=== PATIENT | female | born 1935 | race Caucasian/White ===

== ENCOUNTER 2018-05-24 20:31 | Emergency (ER) | payer MEDICARE ==
[~2018-05-24] VITALS: Ht 157.5 cm; Wt 51.7 kg
[~2018-05-24 20:31] MED LIST: ASPI-612 PO; BUSP7.5T PO; FOLI1TAB16 PO; LISI1TAB7 PO; PHEN100C PO; [UNRECOGNIZED DRUG - CODE] PO; macrobid 100mg PO
[2018-05-24 20:50] VITALS: BP 148/79
--- NOTE | 2018-05-24 21:22 | RAD ---
EXAM: Left foot and ankle, 3 views. HISTORY: Pain. COMPARISON: None. FINDINGS: 3 views of the left foot and ankle are obtained. There is cortical irregularity along the distal fourth metatarsal, suggesting a minimally displaced fracture or osseous ridge. There is chronic deformity of the fifth distal metatarsal and if distal proximal phalanx with associated chronic proximal interphalangeal joint dislocation or subluxation. There is no osteochondral lesion. There is ankle soft tissue swelling. There is slight enthesopathy at the Achilles tendon insertion. IMPRESSION: 1. Slight deformity of the distal fourth metatarsal, suggesting a minimally displaced fracture or an osseous ridge. Correlate for point tenderness in this location. 2. Deformity of the distal fifth metatarsal and distal fifth proximal phalanx, a finding which can be seen with psoriatic arthritis. Correlate with clinical history. Electronically signed by: Tiffany Philip MD (05/24/2018 9:18 PM) [facility]
[2018-05-24] MEDS ORDERED: HYDR-2758 PO (21:26)
--- NOTE | 2018-05-24 21:46 | PHYS DOC ---
Adult General Chief Complaint Chief Complaint foot pain HPI HPI Foot pain, after fall for 2 days noticed swelling of the left foot and ankle. No restriction of movement Review of Systems Review of Systems Constitutional: Denies fever or chills [] Eyes: Denies change in visual acuity, redness, or eye pain [] HENT: Denies nasal congestion or sore throat [] Respiratory: Denies cough or shortness of breath [] Cardiovascular: No additional information not addressed in HPI [] GI: Denies abdominal pain, nausea, vomiting, bloody stools or diarrhea [] : Denies dysuria or hematuria [] Musculoskeletal: Denies back pain or joint pain [] Integument: Denies rash or skin lesions [] Neurologic: Denies headache, focal weakness or sensory changes [] Endocrine: Denies polyuria or polydipsia [] All other systems were reviewed and found to be within normal limits, except as documented in this note. Allergies Allergies Allergies Coded Allergies Type Severity Reaction Last Updated Verified No Known Drug Allergies 06/14/14 No Physical Exam Physical Exam Constitutional: Well developed, well nourished, no acute distress, non-toxic appearance. [] HENT: Normocephalic, atraumatic, bilateral external ears normal, oropharynx moist, no oral exudates, nose normal. [] Eyes: PERRLA, EOMI, conjunctiva normal, no discharge. [] Neck: Normal range of motion, no tenderness, supple, no stridor. [] Cardiovascular:Heart rate regular rhythm, no murmur [] Lungs & Thorax: Bilateral breath sounds clear to auscultation [] Abdomen: Bowel sounds normal, soft, no tenderness, no masses, no pulsatile masses. [] Skin: Warm, dry, no erythema, no rash. [] Back: No tenderness, no CVA tenderness. [] Extremities: Tender left foot swollen Neurologic: Alert and oriented X 3, normal motor function, normal sensory function, no focal deficits noted. [] Psychologic: Affect normal, judgement normal, mood normal. [] Current Patient Data Vital Signs Vital Signs Date Time Temp Pulse Resp B/P (MAP) Pulse Ox O2 Delivery O2 Flow Rate FiO2 05/24/18 20:50 98.1 98 18 98 Room Air EKG EKG [] Radiology/Procedures Radiology/Procedures [] Course & Med Decision Making Course & Med Decision Making Pertinent Labs and Imaging studies reviewed. (See chart for details) [] Final Impression Final Impression [] Problems: (1) Foot fracture, left Qualifiers: Qualified Codes: S92.902A - Unspecified fracture of left foot, initial encounter for closed fracture Dragon Disclaimer Dragon Disclaimer This electronic medical record was generated, in whole or in part, using a voice recognition dictation system. MERCEDES HUANG MD May 24, 2018 21:46
== END 2018-05-24 22:25 | disposition home or self-care (01) ==
LOC: ER 20:31
DX: S92.902A Unspecified fracture of left foot, initial encounter for closed fracture (principal); W01.0XXA Fall on same level from slipping, tripping and stumbling without subsequent striking against object, initial encounter; Y93.89 Activity, other specified; Y92.89 Other specified places as the place of occurrence of the external cause; Y99.8 Other external cause status
CPT/HCPCS: 29515; 73610; 73630; 99284

== ENCOUNTER 2018-06-04 16:59 | Emergency (ER) | payer MEDICARE ==
[~2018-06-04] VITALS: Ht 160 cm; Wt 52.2 kg
[~2018-06-04 16:59] MED LIST changes: +HYDR-2758 PO
--- NOTE | 2018-06-04 17:23 | PHYS DOC ---
Past History Past Medical History: Hypertension, Seizure Past Surgical History: Other Alcohol Use: None Drug Use: None Adult General Chief Complaint Chief Complaint: FOOT INJURY PAIN [facility] HPI Patient is an 83-year-old female who presents from her primary care doctor's office with concern that foot is swollen. Patient reportedly has been bearing weight on her left foot that is fractured. Upon arrival, patient denies any pain in her foot. Patient denies any pain at this time and requesting to be discharged home. Review of Systems Review of Systems Constitutional: Denies fever or chills [] Respiratory: Denies cough or shortness of breath [] Cardiovascular: No additional information not addressed in HPI [] Musculoskeletal: Positive foot swelling. Denies foot pain[] Integument: Denies rash or skin lesions [] Allergies Allergies Allergies Coded Allergies Type Severity Reaction Last Updated Verified No Known Drug Allergies 06/04/18 No Physical Exam Physical Exam Constitutional: Well developed, well nourished, no acute distress, non-toxic appearance. [] HENT: Normocephalic, atraumatic. [] Cardiovascular:Heart rate regular rhythm [] Lungs & Thorax: Bilateral breath sounds clear to auscultation [] Skin: Warm, dry, no erythema, no rash. [] Extremities: Right foot demonstrates moderate soft tissue swelling primarily at the dorsum of the foot. Patient denies any tenderness to palpation. [] Neurologic: Awake and alert, no focal deficits noted. [] Current Patient Data Vital Signs Vital Signs Date Time Temp Pulse Resp B/P (MAP) Pulse Ox O2 Delivery O2 Flow Rate FiO2 06/04/18 17:05 97.4 82 18 97 Room Air EKG EKG [] Radiology/Procedures Radiology/Procedures [] Impressions: Stable nondisplaced fourth metatarsal head fracture. Course & Med Decision Making Course & Med Decision Making Pertinent Labs and Imaging studies reviewed. (See chart for details) [] Dragon Disclaimer Dragon Disclaimer This electronic medical record was generated, in whole or in part, using a voice recognition dictation system. Departure Departure: Impression: Primary Impression: Foot fracture, left Disposition: 01 HOME, SELF-CARE Condition: STABLE Referrals: EVETTE BARRIOS MD (PCP) JAMEE ASCENCIO MD Patient Instructions: Foot Fracture Additional Instructions: Call tomorrow morning to schedule appointment with Dr. Ascencio. Problem Qualifiers Primary Impression: Foot fracture, left Encounter type: subsequent encounter Fracture type: closed Fracture healing : with routine healing Qualified Codes: S92.902D - Unspecified fracture of left foot, subsequent encounter for fracture with routine healing CARMEN MIN Jr. DO Jun 04, 2018 17:23
--- NOTE | 2018-06-04 17:23 | RAD ---
Indication: Fall possible fracture TECHNIQUE: 3 views of the left foot COMPARISON: 05/24/2018 FINDINGS: Diffuse osteopenia. Stable nondisplaced fracture is seen at the head of the fourth metatarsal. Chronic deformity seen in the fifth MTP and PIP joint. Soft tissue swelling seen in the dorsum of the foot. IMPRESSION: Fracture of the head of the fourth metatarsal. Electronically signed by: Nii Craig DO (06/04/2018 5:19 PM) [id number]
[2018-06-04 17:44] VITALS: BP 161/75
== END 2018-06-04 17:50 | disposition home or self-care (01) ==
LOC: ER 16:59
DX: S92.345A Nondisplaced fracture of fourth metatarsal bone, left foot, initial encounter for closed fracture (principal); I10 Essential (primary) hypertension; X58.XXXA Exposure to other specified factors, initial encounter; Y93.89 Activity, other specified; Y92.89 Other specified places as the place of occurrence of the external cause; Y99.8 Other external cause status
CPT/HCPCS: 73630; 99284

== ENCOUNTER 2019-02-10 07:13 | Emergency (ER) | payer MEDICARE ==
[~2019-02-10 07:13] MED LIST changes: +HYDR-2155 PO; -HYDR-2758 PO
--- NOTE | 2019-02-10 07:26 | PHYS DOC ---
Past History Past Medical History: Hypertension, Seizure Past Surgical History: Other Smoking: Quit Greater Than 1 Year Alcohol Use: None Drug Use: None Adult General Chief Complaint Chief Complaint: KNEE INJURY HPI HPI Patient is a 83-year-old female presents complaining of right knee pain after a mechanical trip and fall last evening at approximately 1930. No head injury. No loss of consciousness. Patient reports being unable to ambulate secondary to pain since that time. No numbness or tingling. No hip pain. No weakness or paresthesias. No previous history of knee injury. Movement makes it worse. She has taken nothing to help with the pain.[] Review of Systems Review of Systems Constitutional: Denies fever or chills [] Eyes: Denies change in visual acuity, redness, or eye pain [] HENT: Denies nasal congestion or sore throat [] Respiratory: Denies cough or shortness of breath [] Cardiovascular: No chest pain or palpitations[] GI: Denies abdominal pain, nausea, vomiting, bloody stools or diarrhea [] : Denies dysuria or hematuria [] Musculoskeletal: Denies back pain, see history of present illness[] Integument: Denies rash or skin lesions [] Neurologic: Denies headache, focal weakness or sensory changes [] Endocrine: Denies polyuria or polydipsia [] All other systems were reviewed and found to be within normal limits, except as documented in this note. Current Medications Current Medications Current Medications Medications (Trade) Dose Ordered Sig/Deepthi Start Time Stop Time Status Last Admin Dose Admin Acetaminophen (Tylenol) 500 mg 1X ONCE 02/10/19 07:30 02/10/19 07:31 UNV Allergies Allergies Allergies Coded Allergies Type Severity Reaction Last Updated Verified No Known Drug Allergies 06/04/18 No Physical Exam Physical Exam Constitutional: Well developed, well nourished, no acute distress, non-toxic appearance. [] HENT: Normocephalic, atraumatic, bilateral external ears normal, oropharynx moist, no oral exudates, nose normal. [] Eyes: PERRLA, EOMI, conjunctiva normal, no discharge. [] Neck: Normal range of motion, no tenderness, supple, no stridor. [] Cardiovascular:Heart rate regular rhythm, no murmur [] Lungs & Thorax: Bilateral breath sounds clear to auscultation [] Abdomen: Bowel sounds normal, soft, no tenderness, no masses, no pulsatile masses. Pelvis is stable and 3 planes[] Skin: Warm, dry, no erythema, no rash. [] Back: No tenderness, no CVA tenderness. [] Extremities: Right knee has tenderness along the medial aspect. Limited active range of motion secondary to pain. No varus or valgus laxity. No significant edema. No erythema or bruising. Patient is distally neurovascularly intact. A joint above shows some mild hip discomfort with movement of the knee. No r otational deformity. Right ankle was evaluated and was normal. The other 3 extremities show: No tenderness, no cyanosis, no clubbing, ROM intact, no edema. [] Neurologic: Alert and oriented X 3, normal motor function, normal sensory f unction, no focal deficits noted. [] Psychologic: Affect normal, judgement normal, mood normal. [] EKG EKG EKG shows an irregular rhythm rate of 97, normal axis, QTC of 456 ms, no ST elevations. Interpreted by me at 0747[] Radiology/Procedures Radiology/Procedures PROCEDURE: KNEE RIGHT 3V EXAM: AP, oblique and cross table lateral views of the right knee DATE: 02/10/2019 7:16 AM INDICATION: Right knee pain post fall COMPARISON: No Prior FINDINGS: 3 views of the right knee demonstrate no evidence for acute fracture or dislocation. Decreased bone mineral density. Small right knee joint effusion. Vascular calcifications are seen. Apparent cystic focus subjacent to the lateral tibial plateau/tibial spine likely subchondral cyst. IMPRESSION: 1. Within the constraints of osteopenia, no evidence for acute fracture. If there is persistent clinical concern for fracture, follow-up radiographs in 10-14 days is recommended. 2. Small right knee joint effusion. Right hip x-rays shows a fracture in the proximal femur, appears to be a subtrochanteric fracture versus intertrochanteric Chest x-ray shows no infiltrate, no effusion, no pneumothorax[] Course & Med Decision Making Course & Med Decision Making Pertinent Labs and Imaging studies reviewed. (See chart for details) ED course: Patient arrived, was placed in bed, and tolerated exam well. Initial x-rays of the knee were performed with any complications. Patient reported being unable to ambulate still and so x-ray of the pelvis and right hip were obtained along with some baseline labs because of frequent falls according to daughter who showed up after the patient arrived. X-ray findings are noted above. Consultation was made with orthopedic surgery and the hospitalist service. Patient reports her last meal was approximately 1700 yesterday. Aside from the acetaminophen that was administered in the emergency department, she has had nothing by mouth. She was started on IV normal saline. She was transferred in improved condition with all questions answered. Medical decision makin-year-old female with a closed right hip fracture needing orthopedic surgery services not available at [facility]. She is also noted to be in atrial fibrillation with a rate controlled pattern. Also noted to be hyponatremic.[] Dragon Disclaimer Dragon Disclaimer This electronic medical record was generated, in whole or in part, using a voice recognition dictation system. Departure Departure: Impression: Primary Impression: Closed right hip fracture Additional Impressions: Atrial fibrillation Hyponatremia Disposition: 05 TRANSFER OTHER Admitting Physician: Rahel Betancourt Condition: IMPROVED Referrals: EVETTE BARRIOS MD (PCP) Problem Qualifiers Primary Impression: Closed right hip fracture Encounter type: initial encounter Qualified Codes: S72.001A - Fracture of unspecified part of neck of right femur, initial encounter for closed fracture Additional Impressions: Atrial fibrillation Atrial fibrillation type: unspecified Qualified Codes: I48.91 - Unspecified atrial fibrillation KELI PINTO DO Feb 10, 2019 07:26
[2019-02-10] MEDS: ACETAMINOPHEN 500 MG TABLET PO ONE (07:40)
--- NOTE | 2019-02-10 07:41 | RAD ---
EXAM: AP, oblique and cross table lateral views of the right knee DATE: 02/10/2019 7:16 AM INDICATION: Right knee pain post fall COMPARISON: No Prior FINDINGS: 3 views of the right knee demonstrate no evidence for acute fracture or dislocation. Decreased bone mineral density. Small right knee joint effusion. Vascular calcifications are seen. Apparent cystic focus subjacent to the lateral tibial plateau/tibial spine likely subchondral cyst. IMPRESSION: 1. Within the constraints of osteopenia, no evidence for acute fracture. If there is persistent clinical concern for fracture, follow-up radiographs in 10-14 days is recommended. 2. Small right knee joint effusion. Electronically signed by: Darius Pollard MD (02/10/2019 7:38 AM) [facility]
--- NOTE | 2019-02-10 07:58 | EKG ---
[address] [address] Test Date: 2019-02-10 Test Time: 07:47:37 Pat Name: COLBY OBREGON Department: Room: Gender: F Poly Area Supervisor: : 1935 Requested By: KELI PINTO Order Number: [id number] Reading MD: Measurements Intervals [place] Rate: P: CO: QRS: QRSD: T: QT: QTc: Interpretive Statements
[2019-02-10 08:04] LABS: BASO % 0 % (0-3); EOS % 0 % (0-3); HEMOGLOBIN 11.8 g/dL (12.0-15.5); LYMPH # 0.6 x10^3/uL (1.0-4.8); LYMPH % 6 % (24-48); MEAN CORPUSCULAR HEMOGLOBIN 33 pg (25-35); MEAN CORPUSCULAR HGB CONC 34 g/dL (31-37); MEAN CORPUSCULAR VOLUME 97 fL (79-100); MONO # 1.1 x10^3/uL (0.0-1.1); MONO % 10 % (0-9); NEUT # 9.1 x10^3uL (1.8-7.7); NEUT % 84 % (31-73); PLATELET COUNT 232 x10^3/uL (140-400); RED BLOOD COUNT 3.61 x10^6/uL (3.50-5.40); RED CELL DISTRIBUTION WIDTH 13.4 % (11.5-14.5); WHITE BLOOD COUNT 10.8 x10^3/uL (4.0-11.0)
[2019-02-10 08:17] LABS: ALBUMIN 3.7 g/dL (3.4-5.0); ALBUMIN/GLOBULIN RATIO 1.3 (1.0-1.7); CALCIUM 9.2 mg/dL (8.5-10.1); CREATININE 0.7 mg/dL (0.6-1.0); GFR 80.1; POTASSIUM 5.1 mmol/L (3.5-5.1); TOTAL BILIRUBIN 0.4 mg/dL (0.2-1.0); TOTAL PROTEIN 6.6 g/dL (6.4-8.2)
--- NOTE | 2019-02-10 08:32 | RAD ---
EXAM: AP pelvis, AP and crosstable lateral views of the right hip DATE: 02/10/2019 7:36 AM INDICATION: Fall, right hip pain COMPARISON: None FINDINGS/ IMPRESSION: There is a impacted right intertrochanteric hip fracture in there is attenuation. There is involvement of the lesser trochanter with possible lesser trochanteric avulsion. Electronically signed by: Darius Pollard MD (02/10/2019 8:29 AM) [facility]
--- NOTE | 2019-02-10 08:34 | RAD ---
EXAM: AP View of the chest DATE: 02/10/2019 8:13 AM INDICATION: Hip fracture, preoperative evaluation, COMPARISON: 06/14/2014 FINDINGS/ IMPRESSION: Heart is mildly enlarged. Atherosclerotic calcifications of the tortuous aorta are seen. Suspect small hiatal hernia. No lobar consolidation. No pleural effusion or pneumothorax. Background of mild emphysematous change. Electronically signed by: Darius Pollard MD (02/10/2019 8:31 AM) [facility]
[2019-02-10 08:44] VITALS: BP 133/70
[2019-02-10] MEDS: IV NORMAL SALINE 1,000ML 1,000 ML IV ONE (09:23)
[2019-02-10 09:32] LABS: BACTERIA,URINE 0 /HPF (0-FEW); BILIRUBIN,URINE NEG (NEG); CLARITY,URINE CLEAR; COLOR,URINE YELLOW; GLUCOSE,URINE NEG (NEG); NITRITE,URINE NEG (NEG); RBC,URINE 0 /HPF (0-2); SQUAMOUS EPITHELIAL CELL,UR OCC /LPF; UROBILINOGEN,URINE 0.2 mg/dL (0.2 mg/dL); WBC,URINE 0 /HPF (0-4)
[2019-02-10] MEDS ORDERED: HYDROcodone/APAP 5/325MG 1 TAB TABLET PO PRN (13:00)
[2019-02-10] MEDS ORDERED: PHENYTOIN SODIUM 300 MG PO SCH (21:00)
[2019-02-10] MEDS ORDERED: BUSPIRONE HCL 7.5 MG PO SCH (21:00)
[2019-02-10] MEDS ORDERED: DEMECLOCYCLINE HCL 150 MG TABLET PO SCH (21:00)
[2019-02-11] MEDS ORDERED: FOLIC ACID PO SCH (09:00)
== END 2019-02-10 09:27 | disposition short-term general hospital (02) ==
LOC: ER 07:13
DX: S72.091A Other fracture of head and neck of right femur, initial encounter for closed fracture (principal); E87.1 Hypo-osmolality and hyponatremia; I48.91 Unspecified atrial fibrillation; I10 Essential (primary) hypertension; M25.461 Effusion, right knee; Z87.891 Personal history of nicotine dependence; W01.0XXA Fall on same level from slipping, tripping and stumbling without subsequent striking against object, initial encounter; Y93.89 Activity, other specified; Y92.89 Other specified places as the place of occurrence of the external cause; Y99.8 Other external cause status
CPT/HCPCS: 36415; 51702; 71045; 73502; 73562; 80053; 81001; 83735; 84484; 85025; 85610; 93005; 99285-25; J7030

== ENCOUNTER 2019-11-08 11:13 | Emergency (ER) | payer MEDICARE ==
[~2019-11-08 11:13] MED LIST changes: +LISI1TAB20 PO; -LISI1TAB7 PO
== END 2019-11-08 11:20 | disposition left against medical advice (07) ==
LOC: ER 11:13
DX: R06.02 Shortness of breath (principal); Z53.21 Procedure and treatment not carried out due to patient leaving prior to being seen by health care provider

== ENCOUNTER 2020-02-12 04:48 | Emergency (ER) | payer MEDICARE ==
[~2020-02-12] VITALS: Ht 157.5 cm; Wt 55.0 kg
[2020-02-12 04:48] VITALS: BP 133/72
--- NOTE | 2020-02-12 05:46 | RAD ---
Chest AP portable at 0502: Reason for examination: Confusion. Comparison is made to previous study dated 02/10/2019. The heart size is enlarged but unchanged. Mediastinum is unremarkable. Lung astorga are clear. No acute bony abnormalities are seen. Impression: Stable cardiomegaly. No acute cardiopulmonary disease. CT head without contrast Comparison is made to previous study dated 04/04/2015. Axial images were obtained through the brain. No contrast was administered. Exposure: One or more of the following individualized dose reduction techniques were utilized for this examination: 1. Automated exposure control 2. Adjustment of the mA and/or kV according to patient size 3. Use of iterative reconstruction technique. Ventricular systems are symmetric and not abnormally dilated. No midline shift is seen. There are patchy deep white matter changes in the frontal and parietal lobes. There is a small 6.9 mm focus of hyperdensity suggesting a small bleed at the kurtz-white junction in the posterior right frontal lobe. No other site of hemorrhage, infarct or mass is seen. No edema is evident. No abnormalities of seen at the orbits. The paranasal sinuses show mucosal thickening in the left maxillary antrum. Remaining paranasal sinuses and mastoid air cells are clear. No acute skull abnormality is seen. 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 6.9 mm focus of hyperdensity at the base of the sulcus in the posterior right frontal lobe consistent with a small hemorrhage. Recommend follow-up. Mucosal disease involving the left maxillary antrum. Electronically signed by: Heather Beatty MD (02/12/2020 5:43 AM) [id number]
--- NOTE | 2020-02-12 05:49 | PHYS DOC ---
Past History Past Medical History: CHF Past Surgical History: Other Smoking: Quit Greater Than 1 Year Alcohol Use: None Drug Use: None Adult General Chief Complaint Chief Complaint: ALTERED MENTAL STATUS HPI HPI Patient is a 84 year old female who presents with altered mental status for the last 3 days. Daughter states that at baseline she typically walks well and talks normally. She is normally completely oriented. Over the last several days she has had confusion and is wobbly when she tries to walk. She states the last time something like this happened she had a urinary tract infection. She states she is having hard time taking care of her at home due to this acute illness. She just states typically patient is able to mostly take care of herself. She states that the patient is not eating or drinking properly but is taking her medications. 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 Patient denies any pain. She is unable to provide any history. Review of Systems Review of Systems Unable to obtain due to altered mental status Allergies Allergies Allergies Coded Allergies Type Severity Reaction Last Updated Verified No Known Drug Allergies 02/12/20 No Physical Exam Physical Exam General: Awake, alert, NAD. Well Nourished, well hydrated. Cooperative HEENT: Atraumatic, EOMI, PERRL, airway patent, moist oral mucosa Neck: Supple, trachea midline Respiratory: CTA bilaterally, normal effort, no wheezing/crackles CV: RRR, no murmur, cap refill <2 GI: Soft, nondistended, nontender, no masses MSK: No obvious deformities Skin: Warm, dry, intact Neuro: A&O x2, speech slurred, 5 out of 5 strength bilateral upper and lower extremities proximally and distally, cranial nerves II through XII intact, intact sensation in all 4 extremities, follows commands without difficulty Psych: Normal affect, normal mood, not suicidal or homicidal Current Patient Data Vital Signs Vital Signs Date Time Temp Pulse Resp B/P (MAP) Pulse Ox O2 Delivery O2 Flow Rate FiO2 02/12/20 04:48 98.7 88 16 133/72 (92) 97 Room Air EKG EKG [] Radiology/Procedures Radiology/Procedures [] Course & Med Decision Making Course & Med Decision Making Pertinent Labs and Imaging studies reviewed. (See chart for details) Patient is a 84-year-old female with a history of DVT, hyponatremia who presents to the Emergency Rom with altered mental status. On exam, patient is confused with intermittent garbled/slurred speech. She is otherwise neurologically intac t. At this time it is unclear what is causing the patient's altered mental status, however they do not appear to be at their baseline. Differential includes infection, electrolyte imbalance, ACS, stroke, intracranial bleed, polypharmacy, dehydration, dementia, renal failure, novel coronavirus 19. Patient does not have hypo-or hyperthermia. No history was provided to suggest seizure with postictal state. Glucose is normal upon arrival. At arrival, patient is protecting their airway and does not need to be intubated. There is any signs of trauma. To evaluate the patient's altered mental status, CBC, CMP, UA, troponin, EKG, CT head, coronavirus test, INR, chest x-ray will be ordered. Dragon Disclaimer Dragon Disclaimer This electronic medical record was generated, in whole or in part, using a voice recognition dictation system. 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
[2020-02-12 05:52] LABS: CALCIUM 8.7 mg/dL (8.5-10.1); CREATININE 0.8 mg/dL (0.6-1.0); GFR 68.5; POTASSIUM 3.8 mmol/L (3.5-5.1)
[2020-02-12 05:53] LABS: BASO % 1 % (0-3); EOS # 0.3 x10^3/uL (0.0-0.7); EOS % 3 % (0-3); HEMATOCRIT 35.1 % (36.0-47.0); HEMOGLOBIN 11.8 g/dL (12.0-15.5); LYMPH # 1.7 x10^3/uL (1.0-4.8); LYMPH % 19 % (24-48); MEAN CORPUSCULAR HEMOGLOBIN 33 pg (25-35); MEAN CORPUSCULAR HGB CONC 34 g/dL (31-37); MEAN CORPUSCULAR VOLUME 98 fL (79-100); MONO # 1.5 x10^3/uL (0.0-1.1); MONO % 17 % (0-9); NEUT # 5.5 x10^3uL (1.8-7.7); NEUT % 61 % (31-73); PLATELET COUNT 212 x10^3/uL (140-400); RED BLOOD COUNT 3.58 x10^6/uL (3.50-5.40); RED CELL DISTRIBUTION WIDTH 13.9 % (11.5-14.5)
[2020-02-12 05:58] LABS: ALBUMIN 3.7 g/dL (3.4-5.0); TOTAL BILIRUBIN 0.8 mg/dL (0.2-1.0); TOTAL PROTEIN 7.3 g/dL (6.4-8.2)
[2020-02-12 06:08] LABS: BACTERIA,URINE FEW /HPF (0-FEW); BILIRUBIN,URINE NEG (NEG); CLARITY,URINE CLEAR; COLOR,URINE YELLOW; GLUCOSE,URINE NEG (NEG); NITRITE,URINE NEG (NEG); SQUAMOUS EPITHELIAL CELL,UR OCC /LPF; UROBILINOGEN,URINE 0.2 mg/dL (0.2 mg/dL); WBC,URINE OCC /HPF (0-4)
[2020-02-12] MEDS ORDERED: PHYTONADIONE 10 MG/ML AMPUL. ONE (06:25)
[2020-02-12] MEDS ORDERED: IV NORMAL SALINE 50ML 50 ML ONE (06:25)
[2020-02-12] MEDS: PHYTONADIONE for IVPB 5 MG in IV NORMAL SALINE 50ML 50 ML IV ONE (06:30)
--- NOTE | 2020-02-12 10:44 | EKG ---
[address] [address] Test Date: 2020-02-12 Test Time: 05:10:08 Pat Name: COLBY OBREGON Department: Room: Gender: F Carpenter Form: : 1935 Requested By: EFRA MERINO Order Number: [id number] Reading MD: Measurements Intervals [place] Rate: 85 P: ID: QRS: 57 QRSD: 88 T: 46 QT: 342 QTc: 412 Interpretive Statements IRREGULAR RHYTHM, NO P-WAVE FOUND LOW LIMB LEAD VOLTAGE NO SPECIFIC ECG ABNORMALITIES RI6.02 No previous ECG available for comparison
== END 2020-02-12 09:15 | disposition home or self-care (01) ==
LOC: ER 04:48
DX: R41.82 Altered mental status, unspecified (principal); I50.9 Heart failure, unspecified; Z03.818 Encounter for observation for suspected exposure to other biological agents ruled out; Z87.891 Personal history of nicotine dependence; W18.39XA Other fall on same level, initial encounter; Y93.89 Activity, other specified; Y92.89 Other specified places as the place of occurrence of the external cause; Y99.8 Other external cause status
CPT/HCPCS: 36415; 70450; 71045; 80053; 81001; 82947; 84484; 85025; 85610; 86850; 86900; 86901; 93005; 96365; 99285; J3430; U0003

== ENCOUNTER 2020-06-10 08:37 | Emergency (ER) | payer MEDICARE ==
[~2020-06-10] VITALS: Ht 157.5 cm; Wt 52.0 kg
[~2020-06-10 08:37] MED LIST changes: -ASPI-612 PO; +ASPI-889 PO
[2020-06-10 09:18] LABS: BASO # 0.1 x10^3/uL (0.0-0.2); BASO % 1 % (0-3); EOS # 0.3 x10^3/uL (0.0-0.7); EOS % 4 % (0-3); HEMATOCRIT 37.1 % (36.0-47.0); HEMOGLOBIN 12.3 g/dL (12.0-15.5); LYMPH # 2.1 x10^3/uL (1.0-4.8); LYMPH % 34 % (24-48); MEAN CORPUSCULAR HEMOGLOBIN 32 pg (25-35); MEAN CORPUSCULAR HGB CONC 33 g/dL (31-37); MEAN CORPUSCULAR VOLUME 98 fL (79-100); MONO # 0.8 x10^3/uL (0.0-1.1); MONO % 13 % (0-9); NEUT % 48 % (31-73); PLATELET COUNT 304 x10^3/uL (140-400); RED CELL DISTRIBUTION WIDTH 13.1 % (11.5-14.5); WHITE BLOOD COUNT 6.1 x10^3/uL (4.0-11.0)
[2020-06-10] MEDS ORDERED: FOSPHENYTOIN 500 MG/10 ML VIAL IV ONE (09:23)
[2020-06-10] MEDS ORDERED: IV NORMAL SALINE 50ML 50 ML ONE (09:24)
[2020-06-10 09:25] LABS: ANION GAP 7 (6-14); BLOOD UREA NITROGEN 19 mg/dL (7-20); BUN/CREATININE RATIO 24 (6-20); CALCIUM 8.5 mg/dL (8.5-10.1); CARBON DIOXIDE 26 mmol/L (21-32); CHLORIDE 94 mmol/L (98-107); CREATININE 0.8 mg/dL (0.6-1.0); GFR 68.3; GLUCOSE 105 mg/dL (70-99); SODIUM 127 mmol/L (136-145)
--- NOTE | 2020-06-10 09:26 | PHYS DOC ---
Past History Past Medical History: CHF, Seizure Past Surgical History: Other Smoking: Quit Greater Than 1 Year Alcohol Use: None Drug Use: None General Adult EDM: Chief Complaint: SEIZURE HPI: HPI: Patient is a 85-year-old female who was brought here by EMS from home after she had a seizure this morning while she was in her bed. Her family found her in the bed having a seizure, it lasted probably about 20 to 30 minutes PER FAMILY. Patient is on Dilantin at home. Patient claimed that she took her medication as directed. Patient was tested positive for COVID-19 on May 31. At this time patient denies any abdominal pain, no nausea vomiting, no chest pain, no trouble breathing, no headache or neck pain. Review of Systems: Review of Systems: Constitutional: Denies fever or chills Eyes: Denies change in visual acuity HENT: Denies nasal congestion or sore throat Respiratory: Denies cough or shortness of breath Cardiovascular: Denies chest pain or edema GI: Denies abdominal pain, nausea, vomiting, bloody stools or diarrhea : Denies dysuria Musculoskeletal: Denies back pain or joint pain Integument: Denies rash Neurologic: Denies headache, focal weakness or sensory changes , positive for having a seizure Endocrine: Denies polyuria or polydipsia Lymphatic: Denies swollen glands Psychiatric: Denies depression or anxiety Current Medications: Current Meds: Current Medications Medications (Trade) Dose Ordered Sig/Deepthi Start Time Stop Time Status Last Admin Dose Admin Fosphenytoin Sodium 1000 mg/ Sodium Chloride 70 ml @ 280 mls/hr 1X ONCE 06/10/20 09:30 06/10/20 09:44 UNV Allergies: Allergies: Allergies Coded Allergies Type Severity Reaction Last Updated Verified No Known Drug Allergies 02/12/20 No Physical Exam: PE: Constitutional: Well developed, well nourished, no acute distress, non-toxic appearance. [] HENT: Normocephalic, atraumatic, bilateral external ears normal, oropharynx moist, no oral exudates, nose normal. [] Eyes: PERRLA, EOMI, conjunctiva normal, no discharge. [] Neck: Normal range of motion, no tenderness, supple, no stridor. [] Cardiovascular:Heart rate regular rhythm, no murmur [] Lungs & Thorax: Bilateral breath sounds clear to auscultation [] Abdomen: Bowel sounds normal, soft, no tenderness, no masses, no pulsatile masses. [] Skin: Warm, dry, no erythema, no rash. [] Back: No tenderness, no CVA tenderness. [] Extremities: No tenderness, no cyanosis, no clubbing, ROM intact, no edema. [] Neurologic: Alert and oriented X 3, normal motor function, normal sensory function, no focal deficits noted. [] Psychologic: Affect normal, judgement normal, mood normal. [] Current Patient Data: Labs: Laboratory Tests Test 06/10/20 08:57 White Blood Count 6.1 x10^3/uL (4.0-11.0) Red Blood Count 3.80 x10^6/uL (3.50-5.40) Hemoglobin 12.3 g/dL (12.0-15.5) Hematocrit 37.1 % (36.0-47.0) Mean Corpuscular Volume 98 fL (79-100) Mean Corpuscular Hemoglobin 32 pg (25-35) Mean Corpuscular Hemoglobin Concent 33 g/dL (31-37) Red Cell Distribution Width 13.1 % (11.5-14.5) Platelet Count 304 x10^3/uL (140-400) Neutrophils (%) (Auto) 48 % (31-73) Lymphocytes (%) (Auto) 34 % (24-48) Monocytes (%) (Auto) 13 % (0-9) H Eosinophils (%) (Auto) 4 % (0-3) H Basophils (%) (Auto) 1 % (0-3) Neutrophils # (Auto) 3.0 x10^3uL (1.8-7.7) Lymphocytes # (Auto) 2.1 x10^3/uL (1.0-4.8) Monocytes # (Auto) 0.8 x10^3/uL (0.0-1.1) Eosinophils # (Auto) 0.3 x10^3/uL (0.0-0.7) Basophils # (Auto) 0.1 x10^3/uL (0.0-0.2) Vital Signs: Vital Signs Date Time Temp Pulse Resp B/P (MAP) Pulse Ox O2 Delivery O2 Flow Rate FiO2 06/10/20 08:49 97.9 68 16 152/60 (90) 95 Room Air EKG: EKG: EKG was done at 902, heart rate of 62 bpm, no ST segment ovation. Radiology/Procedures: Radiology/Procedures: [] Heart Score: Risk Factors: Risk Factors: DM, Current or recent (<one month) smoker, HTN, HLP, family history of CAD, obesity. Risk Scores: Score 0 - 3: 2.5% MACE over next 6 weeks - Discharge Home Score 4 - 6: 20.3% MACE over next 6 weeks - Admit for Clinical Observation Score 7 - 10: 72.7% MACE over next 6 weeks - Early Invasive Strategies Course & Med Decision Making: Course & Med Decision Making Pertinent Labs and Imaging studies reviewed. (See chart for details) Patient had no seizure activity observed in the ER. Her Dilantin level elevated. Patient will be discharged home, she will need to stop taking the Dilantin, we will prescribe her Keppra. She will need to follow-up with the neurologist for outpatient follow-up Alf Disclaimer: Alf Disclaimer: This electronic medical record was generated, in whole or in part, using a voice recognition dictation system. Departure Departure: Impression: Primary Impression: Seizure disorder Disposition: DC HOME SELF CARE/HOMELESS Condition: STABLE Referrals: EVETTE BARRIOS MD (PCP) Please call your doctor tomorrow for follow up in 1-2 days. DO NOT TAKE DILANTIN ANYMORE SINCE YOUR LEVEL IS HIGH AND YOU STILL HAVE A SEIZURE. MARCELINO WHITTAKER MD PLEASE CALL THIS NEUROLOGIST TOMORROW FOR FOLLOW UP THIS WEEK. Patient Instructions: Seizure, Adult Additional Instructions: Thank you for visiting our Emergency Department. We appreciate you trusting us with your care. If any additional problems come up don't hesitate to return to visit us. Please follow up with your primary care provider so they can plan additional care if needed and know about the problem that you had. If symptoms worsen come back to the Emergency Department. Any concerning symptoms that start such as chest pain, shortness of air, weakness or numbness on one side of the body, running high fevers or any other concerning symptoms return to the ER. DO NOT TAKE DILANTIN ANYMORE SINCE YOUR LEVEL IS HIGH TODAY. WE PUT YOU ON A DIFFERENT ANTISEIZURE MEDICATION. Scripts Levetiracetam (KEPPRA) 500 Mg Tablet 1 TAB PO BID for SEIZURE for 30 Days, #60 TAB 0 Refills Prov: MARIANELA SÁNCHEZ DO 06/10/20 MARIANELA SÁNCHEZ DO Jun 10, 2020 09:26
[2020-06-10] MEDS ORDERED: FOSPHENYTOIN 1,000 MG in IV NORMAL SALINE 50ML 50 ML IV ONE (09:30)
[2020-06-10 09:31] LABS: ALBUMIN 3.5 g/dL (3.4-5.0); ALBUMIN/GLOBULIN RATIO 1.3 (1.0-1.7); ALK PHOS 135 U/L (46-116); ALT (SGPT) 20 U/L (14-59); AST (SGOT) 24 U/L (15-37); MAGNESIUM 1.7 mg/dL (1.8-2.4); PHENY 33.2 mcg/mL (10.0-20.0); TOTAL BILIRUBIN 0.5 mg/dL (0.2-1.0); TOTAL PROTEIN 6.3 g/dL (6.4-8.2)
--- NOTE | 2020-06-10 09:37 | RAD ---
EXAM: CHEST ONE VIEW. HISTORY: Shortness of breath, COVID-19. COMPARISON: 02/12/2020. FINDINGS: A frontal view of the chest is obtained. Hyperinflation is consistent with chronic obstructive pulmonary disease. There is no pneumothorax or pleural effusion. The heart is moderately enlarged. There are atherosclerotic calcifications of the aorta. IMPRESSION: 1. Chronic obstructive pulmonary disease. No confluent infiltrates. 2. Moderate cardiomegaly. Electronically signed by: Colt Multani MD (06/10/2020 9:34 AM) [id number]
[2020-06-10] MEDS ORDERED: IV NORMAL SALINE 1,000ML 1,000 ML IV ONE (09:45)
[2020-06-10 10:24] LABS: BACTERIA,URINE 0 /HPF (0-FEW); BILIRUBIN,URINE NEG (NEG); CLARITY,URINE CLEAR; COLOR,URINE YELLOW; GLUCOSE,URINE NEG (NEG); NITRITE,URINE NEG (NEG); RBC,URINE 0 /HPF (0-2); SQUAMOUS EPITHELIAL CELL,UR FEW /LPF; UROBILINOGEN,URINE 0.2 mg/dL (0.2 mg/dL); WBC,URINE 0 /HPF (0-4)
[2020-06-10 11:00] VITALS: BP 112/59
[2020-06-10] MEDS ORDERED: LEVE500T56 PO (11:45)
--- NOTE | 2020-06-10 13:43 | EKG ---
[facility] ED [facility] [address] [place] [id number] Test Date: 2020-06-10 Test Time: 09:02:56 Pat Name: COLBY OBREGON Department: Room: Gender: F Sales Correspondent: : 1935 Requested By: MARIANELA SÁNCHEZ Order Number: [id number] Reading MD: Measurements Intervals [place] Rate: 62 P: [place]: QRS: 78 QRSD: 98 T: 169 QT: 400 QTc: 408 Interpretive Statements IRREGULAR RHYTHM, NO P-WAVE FOUND T ABNORMALITY IN ANTEROLATERAL LEADS INFEROLATERAL LEADS ABNORMAL ECG RI6.02 No previous ECG available for comparison
== END 2020-06-10 13:20 | disposition home or self-care (01) ==
LOC: ER 08:37
DX: G40.909 Epilepsy, unspecified, not intractable, without status epilepticus (principal); I50.9 Heart failure, unspecified; Z87.891 Personal history of nicotine dependence
CPT/HCPCS: 36415; 71045; 80053; 80185; 81001; 82550; 83735; 84484; 85025; 93005; 96361; 96365; 96375; 99285; J1953; J7030; Q2009

== ENCOUNTER 2020-06-15 11:43 | Emergency (ER) | payer MEDICARE ==
[~2020-06-15] VITALS: Ht 157.5 cm; Wt 52.0 kg
[~2020-06-15 11:43] MED LIST changes: +LEVE500T56 PO
[2020-06-15 11:45] VITALS: BP 115/62
--- NOTE | 2020-06-15 12:12 | PHYS DOC ---
Past History Past Medical History: CHF, Seizure Past Surgical History: Other Smoking: Quit Greater Than 1 Year Alcohol Use: None Drug Use: None General Adult EDM: Chief Complaint: SUTURE/STAPLE REMOVAL HPI: HPI: History obtained from patient. Patient is an 85-year-old female who presents with complaint of staple removal. Patient states she was seen here approximate 5 days ago for seizure and subsequent laceration of the top of her head. Cameron were placed at that time. Patient denies any complaints at this time. Denies any drainage from the staple wound. No other complaints. Review of Systems: Review of Systems: Constitutional: Denies fever or chills Eyes: Denies change in visual acuity HENT: Denies nasal congestion or sore throat Respiratory: Denies cough or shortness of breath Cardiovascular: Denies chest pain or edema GI: Denies abdominal pain, nausea, vomiting, bloody stools or diarrhea : Denies dysuria Musculoskeletal: Denies back pain or joint pain Integument: Positive for healed laceration Neurologic: Denies headache, focal weakness or sensory changes Endocrine: Denies polyuria or polydipsia Lymphatic: Denies swollen glands Psychiatric: Denies depression or anxiety Allergies: Allergies: Allergies Coded Allergies Type Severity Reaction Last Updated Verified No Known Drug Allergies 06/15/20 No Physical Exam: PE: Constitutional: Well developed, well nourished, no acute distress, non-toxic appearance. [] HENT: 2.5 cm laceration noted to the right parietal region. No purulent drainage noted. Ekron removed without difficulty. No active bleeding. Eyes: PERRLA, EOMI, conjunctiva normal, no discharge. [] Neck: Normal range of motion, no tenderness, supple, no stridor. [] Cardiovascular:Heart rate regular rhythm, no murmur [] Lungs & Thorax: Bilateral breath sounds clear to auscultation [] Abdomen: Bowel sounds normal, soft, no tenderness, no masses, no pulsatile masses. [] Skin: Warm, dry, no erythema, no rash. [] Back: No tenderness, no CVA tenderness. [] Extremities: No tenderness, no cyanosis, no clubbing, ROM intact, no edema. [] Neurologic: Alert and oriented X 3, normal motor function, normal sensory function, no focal deficits noted. [] Psychologic: Affect normal, judgement normal, mood normal. [] Current Patient Data: Vital Signs: Vital Signs Date Time Temp Pulse Resp B/P (MAP) Pulse Ox O2 Delivery O2 Flow Rate FiO2 06/15/20 11:45 98.1 84 16 115/62 (79) 98 Room Air EKG: EKG: [] Radiology/Procedures: Radiology/Procedures: [] Heart Score: Risk Factors: Risk Factors: DM, Current or recent (<one month) smoker, HTN, HLP, family history of CAD, obesity. Risk Scores: Score 0 - 3: 2.5% MACE over next 6 weeks - Discharge Home Score 4 - 6: 20.3% MACE over next 6 weeks - Admit for Clinical Observation Score 7 - 10: 72.7% MACE over next 6 weeks - Early Invasive Strategies Course & Med Decision Making: Course & Med Decision Making Pertinent Labs and Imaging studies reviewed. (See chart for details) [] Patient is a pleasant 85-year-old female who presents with chief complaint of staple removal. Ekron removed at bedside. No further complaints. A ppropriate for discharge home. Alf Disclaimer: Alf Disclaimer: This electronic medical record was generated, in whole or in part, using a voice recognition dictation system. Departure Departure: Impression: Primary Impression: Removal of staple Disposition: 01 DC HOME SELF CARE/HOMELESS Condition: STABLE Referrals: EVETTE BARRIOS MD (PCP) Patient Instructions: Staple Removal, Care After MARION EATON DO Jun 15, 2020 12:12
== END 2020-06-15 12:25 | disposition home or self-care (01) ==
LOC: ER 11:43
DX: S01.01XD Laceration without foreign body of scalp, subsequent encounter (principal); I50.9 Heart failure, unspecified; Z87.891 Personal history of nicotine dependence; X58.XXXD Exposure to other specified factors, subsequent encounter
CPT/HCPCS: 99281

== ENCOUNTER 2020-08-27 09:22 | Emergency (ER) | payer MEDICARE ==
[~2020-08-27] VITALS: Ht 157.5 cm; Wt 49.0 kg
--- NOTE | 2020-08-27 09:29 | PHYS DOC ---
Past History Past Medical History: CHF, Seizure Past Surgical History: Other Smoking: Quit Greater Than 1 Year Alcohol Use: None Drug Use: None General Adult EDM: Chief Complaint: ALTERED MENTAL STATUS HPI: HPI: Patient is a 85-year-old female coming from home by EMS for altered mental status. Patient was with her daughter who called EMS due to worsening mental status over the past 5 days. Patient has had falls over the past couple weeks but no loss of consciousness. Patient states she did hit her head on the sink when she was going to the bathroom earlier but states she does accidentally bumped her forehead denies any pain now. Denies any nausea, vomiting, headaches, dysuria. Patient has no complaints. Review of Systems: Review of Systems: All other systems within normal limits except for as noted in the HPI Allergies: Allergies: Allergies Coded Allergies Type Severity Reaction Last Updated Verified No Known Drug Allergies 06/15/20 No Physical Exam: PE: Constitutional: Well developed, well nourished, no acute distress, non-toxic appearance. [] HENT: Normocephalic, atraumatic, bilateral external ears normal, nose normal. [] Eyes: PERRLA, conjunctiva normal, no discharge. [] Neck: No rigidity, supple, no stridor. [] Cardiovascular: Regular rate and rhythm, brisk cap refill [] Lungs & Thorax: Non labored symmetric respirations, no tachypnea or respiratory distress [] Abdomen: Soft, nondistended. Skin: Warm, dry, no erythema, no rash. [] Back: Unremarkable Extremities: No deformities, range of motion grossly intact, no lower extremity edema [] Neurologic: Alert and oriented X 3, no focal deficits noted. Symmetric towel distributor strength, NIH 0 [] Psychologic: Affect normal, judgement normal, mood normal. [] EKG: EKG: , Irregularly irregular rhythm, heart rate 70 bpm, normal axis, normal QRS. No ST elevation or depression [] Radiology/Procedures: Radiology/Procedures: ROCEDURE: CT HEAD WO CONTRAST EXAM: CT head without contrast INDICATION: Altered mental status COMPARISON: CT head 06/07/2020 02/12/2020 and 04/04/2015 TECHNIQUE: Axial CT imaging through the head without intravenous contrast. One or more of the following individualized dose reduction techniques were utilized for this examination: 1. Automated exposure control 2. Adjustment of the mA and/or kV according to patient size 3. Use of iterative reconstruction technique. FINDINGS: The ventricles and sulci are mildly enlarged, reflecting age-related volume loss. There is a moderate burden of periventricular and deep hypoattenuating white matter lesions. Michael-white matter differentiation is maintained. A 7 mm indistinct subcortical hyperdensity in the right frontal lobe is unchanged from 2015, likely mineralization. There is no intracranial hemorrhage, acute infarct, or mass lesion. Basal cisterns are clear. Calcifications are seen in the carotid arteries and vertebral arteries. The mild mucosal thickening in the paranasal sinuses. Mastoid air cells are clear. Globes and orbits are intact. Calvarium is intact. Globes and orbits are intact. IMPRESSION: 1. No acute intracranial abnormality. 2. Unchanged subcortical mineralization in the right frontal lobe. 3. Unchanged volume loss and white matter disease, likely related to chronic microvascular ischemia. AP chest. HISTORY: Altered mental status. AP view of the chest was compared with a study from May 2020. Heart is enlarged. There is no pleural effusion. There is mild vascular congestion. There is linear scarring or atelectasis is at the right costophrenic angle. There are no other confluent infiltrates. IMPRESSION: 1. Cardiomegaly. 2. Mild vascular congestion without other confluent infiltrates.[] Heart Score: Risk Factors: Risk Factors: DM, Current or recent (<one month) smoker, HTN, HLP, family history of CAD, obesity. Risk Scores: Score 0 - 3: 2.5% MACE over next 6 weeks - Discharge Home Score 4 - 6: 20.3% MACE over next 6 weeks - Admit for Clinical Observation Score 7 - 10: 72.7% MACE over next 6 weeks - Early Invasive Strategies Course & Med Decision Making: Course & Med Decision Making Pertinent Labs and Imaging studies reviewed. (See chart for details) Work-up unremarkable. Discussed with patient's primary care provider who has been working to try to find placement for her in a nursing facility. Is currently being cared for by daughters. No acute reason for deteriorating mental status other than patient's dementia. She is safe to discharge home and follow-up [] Alf Disclaimer: Alf Disclaimer: This electronic medical record was generated, in whole or in part, using a voice recognition dictation system. Departure Departure: Impression: Primary Impression: Dementia Disposition: 01 DC HOME SELF CARE/HOMELESS Condition: STABLE Referrals: CHRISTO CASTILLO MD (PCP) EVETTE BARRIOS MD Patient Instructions: Fall Prevention and Home Safety, [id number] VANNESSA LAWELR MD Aug 27, 2020 09:29
[2020-08-27 10:07] LABS: BASO % 1 % (0-3); EOS # 0.3 x10^3/uL (0.0-0.7); EOS % 5 % (0-3); HEMATOCRIT 35.8 % (36.0-47.0); HEMOGLOBIN 11.8 g/dL (12.0-15.5); LYMPH # 1.9 x10^3/uL (1.0-4.8); LYMPH % 30 % (24-48); MEAN CORPUSCULAR HEMOGLOBIN 33 pg (25-35); MEAN CORPUSCULAR HGB CONC 33 g/dL (31-37); MEAN CORPUSCULAR VOLUME 100 fL (79-100); MONO # 0.8 x10^3/uL (0.0-1.1); MONO % 13 % (0-9); NEUT # 3.2 x10^3uL (1.8-7.7); NEUT % 52 % (31-73); PLATELET COUNT 201 x10^3/uL (140-400); RED BLOOD COUNT 3.58 x10^6/uL (3.50-5.40); RED CELL DISTRIBUTION WIDTH 14.1 % (11.5-14.5); WHITE BLOOD COUNT 6.1 x10^3/uL (4.0-11.0)
--- NOTE | 2020-08-27 10:09 | RAD ---
AP chest. HISTORY: Altered mental status. AP view of the chest was compared with a study from May 2020. Heart is enlarged. There is no ple ural effusion. There is mild vascular congestion. There is linear scarring or atelectasis is at the r ight costophrenic angle. There are no other confluent infiltrates. IMPRESSION: 1. Cardiomegaly. 2. Mild vascular congestion without other confluent infiltrates. Electronically signed by: Kaiden Greer MD (08/27/2020 10:06 AM) [id number]
--- NOTE | 2020-08-27 10:10 | RAD ---
EXAM: CT head without contrast INDICATION: Altered mental status COMPARISON: CT head 06/07/2020 02/12/2020 and 04/04/2015 TECHNIQUE: Axial CT imaging through the head without intravenous contrast. One or more of the following individualized dose reduction techniques were utilized for this examinat ion: 1. Automated exposure control 2. Adjustment of the mA and/or kV according to patient size 3. Use of iterative reconstruction technique. FINDINGS: The ventricles and sulci are mildly enlarged, reflecting age-related volume loss. There is a moderate burden of periventricular and deep hypoattenuating white matter lesions. Michael-white matter differen tiation is maintained. A 7 mm indistinct subcortical hyperdensity in the right frontal lobe is unchan ged from 2015, likely mineralization. There is no intracranial hemorrhage, acute infarct, or mass les ion. Basal cisterns are clear. Calcifications are seen in the carotid arteries and vertebral arteries . The mild mucosal thickening in the paranasal sinuses. Mastoid air cells are clear. Globes and orbits are intact. Calvarium is intact. Globes and orbits are intact. IMPRESSION: 1. No acute intracranial abnormality. 2. Unchanged subcortical mineralization in the right frontal lobe. 3. Unchanged volume loss and white matter disease, likely related to chronic microvascular ischemia. Electronically signed by: Anastasia Kearns MD (08/27/2020 10:08 AM) [id number]
[2020-08-27 10:26] LABS: CALCIUM 8.5 mg/dL (8.5-10.1); CREATININE 0.9 mg/dL (0.6-1.0); GFR 59.7; POTASSIUM 4.4 mmol/L (3.5-5.1)
[2020-08-27 10:37] LABS: ALBUMIN 3.5 g/dL (3.4-5.0); ALBUMIN/GLOBULIN RATIO 1.1 (1.0-1.7); MAGNESIUM 2.1 mg/dL (1.8-2.4); TOTAL BILIRUBIN 0.2 mg/dL (0.2-1.0); TOTAL PROTEIN 6.8 g/dL (6.4-8.2)
[2020-08-27 12:20] VITALS: BP 98/56
[2020-08-27 12:29] LABS: BACTERIA,URINE 0 /HPF (0-FEW); BILIRUBIN,URINE NEG (NEG); CLARITY,URINE CLEAR; COLOR,URINE YELLOW; GLUCOSE,URINE NEG (NEG); NITRITE,URINE NEG (NEG); RBC,URINE 0 /HPF (0-2); SQUAMOUS EPITHELIAL CELL,UR OCC /LPF; UROBILINOGEN,URINE 0.2 mg/dL (0.2 mg/dL); WBC,URINE OCC /HPF (0-4)
--- NOTE | 2020-08-27 18:38 | EKG ---
[facility] ED [facility] [address] [place] [id number] Test Date: 2020-08-27 Test Time: 09:29:31 Pat Name: COLBY OBREGON Department: Room: Gender: F Special Certificate Dictator: TORSTEN : 1935 Requested By: VANNESSA LAWLER Order Number: [id number] Reading MD: Saji Scott Measurements Intervals [place] Rate: 79 P: [place]: QRS: 74 QRSD: 90 T: 51 QT: 396 QTc: 460 Interpretive Statements ATRIAL FIBRILLATION Electronically Signed On 08-28-2020 9:06:21 LUGGAGE REPAIRER by Saji Scott
== END 2020-08-27 13:00 | disposition home or self-care (01) ==
LOC: ER 09:22
DX: F03.90 Unspecified dementia, unspecified severity, without behavioral disturbance, psychotic disturbance, mood disturbance, and anxiety (principal); Z91.81 History of falling; Z87.891 Personal history of nicotine dependence; I50.9 Heart failure, unspecified
CPT/HCPCS: 36415; 70450; 71045; 80053; 81001; 83605; 83735; 84443; 84484; 85025; 93005; 99284-25

== ENCOUNTER 2020-10-22 10:42 | Emergency (ER) | payer MEDICARE ==
[~2020-10-22] VITALS: Ht 157.5 cm; Wt 47.8 kg
[~2020-10-22 10:42] MED LIST changes: +DOXY100T PO; +LISI20TA18 PO; +METO50TA29 PO; +OMEP10CA4 PO; +OXYB5TAB10 PO
--- NOTE | 2020-10-22 11:10 | RAD ---
PQRS Compliance Statement: One or more of the following individualized dose reduction techniques were utilized for this examinat ion: 1. Automated exposure control 2. Adjustment of the mA and/or kV according to patient size 3. Use of iterative reconstruction technique CT HEAD WITHOUT CONTRAST History: Reason: unable to speech Comparison: CT head without contrast 08/27/2020. Technique: Axial images are obtained of the head from the skull base through the vertex without IV co ntrast. Findings: No mass-effect, midline shift, extra-axial fluid collection, hemorrhage, or obvious acute infarction is identified. Basilar cisterns are patent. The ventricles and sulci are prominent, consistent with age-related cerebral atrophy. There is modera te subcortical and periventricular white matter hypoattenuation. This is a nonspecific finding but i s commonly due to chronic small vessel ischemic disease. Stable parenchymal calcification right coron a radiata. Stable calcifications of the internal carotid arteries. Bone windows demonstrate no acute calvarial abnormality. Mucosal thickening bilateral frontal sinuses, moderate of the bilateral ethmoid sinuses, mild of the visualized bilateral maxillary sinuses, moderate of the bilateral sphenoid sinuses. There is no air-f luid level. Mastoid air cells are well aerated. IMPRESSION: 1. No acute intracranial abnormality. 2. Age-related cerebral atrophy and moderate subcortical and periventricular white matter changes pr obably due to chronic small vessel ischemic disease. FOR INTERNAL CODING PURPOSES Critical result: Findings discussed with Dr. Suggs in the ED at 10/22/2020 11:01 AM. RESULT CODE: (C) 1. Electronically signed by: Kunal Landaverde MD (10/22/2020 11:08 AM) [id number]
--- NOTE | 2020-10-22 11:24 | PHYS DOC ---
Past History Past Medical History: CHF, Heart Disease, Seizure Past Surgical History: No Surgical History, Other Smoking: Quit Greater Than 1 Year Alcohol Use: None Drug Use: None Adult General Chief Complaint Chief Complaint: NEURO SYMPTOMS/DEFICITS [facility] HPI Patient is an 85-year-old female who presents to the emergency room with increased slurred speech, generalized weakness. Family states that patient gets this way sometimes when she has a UTI. She typically gets around with a walker but has had a difficult time doing that at this time. Patient has not had any new weakness in 1 side of the body versus the other. She has been taking all of her medications as prescribed. Patient is unsure what medications that she is on. Family states that she was more confused and combative this morning than normal. Review of Systems Review of Systems Complete ROS is negative unless otherwise documented in [facility] Allergies Allergies Allergies Coded Allergies Type Severity Reaction Last Updated Verified No Known Drug Allergies 06/15/20 No Physical Exam Physical Exam General: Awake, alert, NAD. Well Nourished, well hydrated. Cooperative HEENT: Atraumatic, EOMI, PERRL, airway patent, moist oral mucosa Neck: Supple, trachea midline Respiratory: CTA bilaterally, normal effort, no wheezing/crackles CV: RRR, no murmur, cap refill <2 GI: Soft, nondistended, nontender, no masses MSK: No obvious deformities Skin: Warm, dry, intact Neuro: Speech slurred, left eye droop,5/5 strength in bilateral upper and lower extremities Psych: Normal affect, normal mood, not suicidal or homicidal Current Patient Data Lab Results Laboratory Tests Test 10/22/20 10:52 Glucose (Fingerstick) 101 mg/dL (70-99) H EKG EKG [] Radiology/Procedures Radiology/Procedures [] Heart Score C/O Chest Pain: N/A Risk Factors: Risk Factors: DM, Current or recent (<one month) smoker, HTN, HLP, family history of CAD, obesity. Risk Scores: Risk Factors: DM, Current or recent (<one month) smoker, HTN, HLP, family history of CAD, obesity. Course & Med Decision Making Course & Med Decision Making Pertinent Labs and Imaging studies reviewed. (See chart for details) Patient is an 85-year-old female who presents to the emergency room with generalized weakness. At this time patient does have drooping of the left eyelid but no other focal neurologic deficits. Work-up will be ordered for other causes of patient's weakness and inability to get up and move around. CBC, troponin, BMP, UA, CT head, chest x-ray were ordered. Work-up unremarkable other than possible pneumonia. We will place her on antibiotics for this. I did offer the patient admission for observation. Patient feels back to normal. Patient is refusing admission. Family would like her to be admitted, however at this time patient is able to make her medical decisions. Patient's test results and vitals while in the ED were fully reviewed and discussed with the patient. Patient is stable and at this time does not need admission to the hospital. We have discussed strict return precautions and the importance of following up with their Primary Care Physician. Patient stated understanding and was given an opportunity to ask any questions. Patient is in agreement with plan. Dragon Disclaimer Dragon Disclaimer This electronic medical record was generated, in whole or in part, using a voice recognition dictation system. Departure Departure: Impression: Primary Impression: Weakness Additional Impression: Pneumonia Disposition: 01 DC HOME SELF CARE/HOMELESS Condition: IMPROVED Referrals: EVETTE BARRIOS MD (PCP) Patient Instructions: Altered Mental Status, Pneumonia, Adult Scripts Azithromycin (AZITHROMYCIN TABLET) 250 Mg Tablet 1 PKG PO UD for PNA for 5 Days, #6 TAB 0 Refills 2 the first day followed by 1 for days 2-5 Prov: EFRA MERINO MD 10/22/20 Problem Qualifiers EFRA MERINO MD Oct 22, 2020 11:24
[2020-10-22 11:33] LABS: BASO % 1 % (0-3); EOS # 0.4 x10^3/uL (0.0-0.7); EOS % 8 % (0-3); HEMATOCRIT 33.9 % (36.0-47.0); HEMOGLOBIN 11.2 g/dL (12.0-15.5); LYMPH # 2.5 x10^3/uL (1.0-4.8); LYMPH % 44 % (24-48); MEAN CORPUSCULAR HEMOGLOBIN 33 pg (25-35); MEAN CORPUSCULAR HGB CONC 33 g/dL (31-37); MEAN CORPUSCULAR VOLUME 100 fL (79-100); MONO # 0.7 x10^3/uL (0.0-1.1); MONO % 12 % (0-9); NEUT % 36 % (31-73); PLATELET COUNT 211 x10^3/uL (140-400); RED BLOOD COUNT 3.41 x10^6/uL (3.50-5.40); RED CELL DISTRIBUTION WIDTH 13.3 % (11.5-14.5); WHITE BLOOD COUNT 5.6 x10^3/uL (4.0-11.0)
[2020-10-22 11:35] VITALS: BP 132/72
[2020-10-22 11:37] LABS: CALCIUM 9.3 mg/dL (8.5-10.1); GFR 52.8; POTASSIUM 4.1 mmol/L (3.5-5.1)
[2020-10-22 11:43] LABS: ALBUMIN 3.9 g/dL (3.4-5.0); ALBUMIN/GLOBULIN RATIO 1.3 (1.0-1.7); TOTAL BILIRUBIN 0.3 mg/dL (0.2-1.0)
--- NOTE | 2020-10-22 11:45 | RAD ---
XR CHEST 1V 10/22/2020 11:15 AM INDICATION: Weakness COMPARISON: August 27, 2020 TECHNIQUE: Portable frontal view of the chest is provided. FINDINGS: The cardiomediastinal silhouette is similar in appearance. Patchy consolidative changes identified in the left midlung. There are no significant pleural effusions. There is no pulmonary vascular congest ion. No pneumothorax. No suspicious osseous abnormality. IMPRESSION: Stable mild cardiomegaly. Patchy consolidative changes identified in the left midlung. This may repre sent atelectasis versus developing infiltrate. Short-term follow-up two-view chest radiograph could b e of benefit. Electronically signed by: Sheri Connell MD (10/22/2020 11:43 AM) [id number]
[2020-10-22 12:28] LABS: BILIRUBIN,URINE NEG (NEG); CLARITY,URINE CLEAR; COLOR,URINE STRAW; GLUCOSE,URINE NEG (NEG)
[2020-10-22 12:29] LABS: BACTERIA,URINE FEW /HPF (0-FEW); NITRITE,URINE NEG (NEG); RBC,URINE 0 /HPF (0-2); UROBILINOGEN,URINE 0.2 mg/dL (0.2 mg/dL); WBC,URINE 0 /HPF (0-4)
[2020-10-22] MEDS ORDERED: AZIT250T6 PO (13:25)
== END 2020-10-22 14:00 | disposition home or self-care (01) ==
LOC: ER 10:42
DX: J18.9 Pneumonia, unspecified organism (principal); R53.1 Weakness; Z87.891 Personal history of nicotine dependence; Z86.79 Personal history of other diseases of the circulatory system
CPT/HCPCS: 36415; 70450; 71045; 80053; 81001; 82947; 84484; 85025; 99284-25; 99285-25

== ENCOUNTER 2020-10-25 06:56 | Inpatient (IN) | payer MEDICARE ==
[~2020-10-25] VITALS: Ht 157.5 cm; Wt 48.6 kg
[~2020-10-25 06:56] MED LIST changes: +AZIT250T6 PO
--- NOTE | 2020-10-25 07:02 | PHYS DOC ---
Past History Past Medical History: CHF, CVA, Dementia, Heart Disease, Seizure, UTI Past Surgical History: No Surgical History Smoking: Quit Greater Than 1 Year Alcohol Use: None Drug Use: None Adult General Chief Complaint Chief Complaint: ALTERED MENTAL STATUS [facility] HPI Patient is a 85-year-old female presenting via EMS for altered mental status. She was recently seen and evaluated at our facility 3 days ago and was diagnosed with pneumonia and offered admission; however, patient had full capacity at that time and declined admission. She returned home under the care of her family members and was prescribed p.o. azithromycin for outpatient treatment. Nonetheless, patient's family reported decline in mentation preceding 24 hours prior to arrival. There was reportedly an unwitnessed ground-level fall that occurred yesterday. Today, patient continued to exhibit altered mentation which concerned family prompting them to call EMS for transportation to our facility. There has been no fever, vision changes, chest pain, hemoptysis, shortness of breath, abdominal pain, UTI-like symptoms, changes in motor or sensory function, no neurologic deficits reported Review of Systems Review of Systems Fourteen body systems of review of systems have been reviewed. See HPI for pertinent positives and negative responses, other peralta all other systems are negative, non-pertinent or non-contributory Allergies Allergies Allergies Coded Allergies Type Severity Reaction Last Updated Verified No Known Drug Allergies 06/15/20 No Physical Exam Physical Exam Constitutional: Well developed, thin, appears delirious HENT: Normocephalic, atraumatic, bilateral external ears normal, oropharynx dry with upper dentures in place, no oral exudates, nose normal. Eyes: PERRLA, EOMI, conjunctiva normal, no discharge. Neck: Normal range of motion, no tenderness, supple, no stridor. Cardiovascular: Heart rate regular, sinus rhythm, no murmurs rubs or gallops Lungs & Thorax: No obvious respiratory distress, no accessory muscle use, crackles more prominent on left versus right Abdomen: Bowel sounds normal, soft, no tenderness, no masses, no pulsatile masses. Nonsurgical abdomen, no peritoneal signs Skin: Warm, dry, no erythema, no rash. Back: No tenderness, no CVA tenderness. Extremities: No tenderness, no cyanosis, no clubbing, ROM intact, no edema. Neurologic: Alert and oriented to place and self only not time, downgoing toes bilaterally, cranial nerves II through XII intact, normal motor & sensory function, no focal deficits noted. gcs 14 (E4, V4, M6), Psychologic: Affect normal, judgement normal, mood normal. Current Patient Data Vital Signs Vital Signs Date Time Temp Pulse Resp B/P (MAP) Pulse Ox O2 Delivery O2 Flow Rate FiO2 10/25/20 06:58 97.5 57 16 189/68 (108) 93 Room Air Lab Results Laboratory Tests Test 10/25/20 07:05 10/25/20 07:16 White Blood Count 6.1 x10^3/uL Red Blood Count 3.41 x10^6/uL Hemoglobin 11.4 g/dL Hematocrit 33.7 % Mean Corpuscular Volume 99 fL Mean Corpuscular Hemoglobin 33 pg Mean Corpuscular Hemoglobin Concent 34 g/dL Red Cell Distribution Width 13.1 % Platelet Count 220 x10^3/uL Neutrophils (%) (Auto) 40 % Lymphocytes (%) (Auto) 39 % Monocytes (%) (Auto) 11 % Eosinophils (%) (Auto) 9 % Basophils (%) (Auto) 1 % Neutrophils # (Auto) 2.4 x10^3uL Lymphocytes # (Auto) 2.4 x10^3/uL Monocytes # (Auto) 0.7 x10^3/uL Eosinophils # (Auto) 0.6 x10^3/uL Basophils # (Auto) 0.1 x10^3/uL Sodium Level 132 mmol/L Potassium Level 4.3 mmol/L Chloride Level 96 mmol/L Carbon Dioxide Level 28 mmol/L Anion Gap 8 Blood Urea Nitrogen 19 mg/dL Creatinine 0.9 mg/dL Estimated GFR (Cockcroft-Gault) 59.7 Glucose Level 112 mg/dL Calcium Level 9.1 mg/dL Troponin I Quantitative < 0.017 ng/mL Lactic Acid Level 1.3 mmol/L EKG EKG EKG ordered and interpreted by myself at 0709 hrs. as sinus rhythm at 63 bpm, unremarkable intervals, no axis deviation, no obvious ischemic findings, no STEMI Radiology/Procedures Radiology/Procedures EXAMINATION: CT HEAD AND C-SPINE WO CLINICAL HISTORY: Unwitnessed fall TECHNIQUE: Serial axial images without IV contrast were obtained from the vertex to the foramen magnum. CT of the cervical spine without IV contrast. Spiral, high resolution axial images were obtained from the skull base to the cervicothoracic junction with sagittal and coronal planar reconstructions. CT Dose Reduction Employed: One or more of the following individualized dose reduction techniques were utilized for this examination: 1. Automated exposure control 2. Adjustment of the mA and/or kV according to patient size 3. Use of iterative reconstruction technique. COMPARISON: None FINDINGS: BRAIN: Acute Change: No evidence of an acute contusion or other acute parenchymal process. Hemorrhage: No evidence of acute intracranial hemorrhage. Mass Lesion/Mass Effect: No evidence of intracranial mass or extraaxial fluid collection. No significant mass effect. Chronic Change: Confluent areas of hypoattenuation in the supratentorial white matter, nonspecific but likely represents marked microvascular ischemia. Small focal calcification in the periventricular white matter adjacent to the body of the right lateral ventricle. Atherosclerotic calcification of the anterior and posterior circulation. Parenchyma: Mild to moderate generalized volume loss. Ventricles: Ventricular enlargement concordant with degree of parenchymal volume loss. Paranasal Sinuses and Skull Base: Mild secretions in the frontal and ethmoid sinuses. No evidence of acute calvarial fracture. C-SPINE: Alignment: Normal anatomic alignment. Osseous Structures: No evidence of acute fracture or spondylolisthesis. Degenerative Changes: Moderate to marked multilevel degenerative disc disease and neural foraminal narrowing in the mid to lower cervical spine. Mild facet arthropathy. No evidence of significant osseous spinal stenosis. Cervical Soft Tissues: No prevertebral soft tissue swelling. Incidentally noted enlarged heterogeneous multinodular thyroid. Carotid atherosclerotic calcificat ion. IMPRESSION: BRAIN: No evidence of acute intracranial abnormality. Marked chronic white matter microvascular ischemic changes. C-SPINE: No evidence of acute osseous abnormality involving the cervical spine. Multilevel cervical degenerative disc disease and neural foraminal narrowing as described. Incidentally noted enlarged heterogeneous multinodular thyroid, recommend nonemergent thyroid ultrasound for further evaluation if one has not been recently obtained. This can be obtained on an outpatient basis. Electronically signed by: Prabhakar Marin DO (10/25/2020 7:52 AM) [id number] //////////////////////////// AP chest. HISTORY: Altered mental status. AP view was taken of the chest. Lungs are free of infiltrates. Heart is enlarged. There are no confluent infiltrates. There is no effusion. There's been an improvement compared to the study from 3 days ago. IMPRESSION: 1. Cardiomegaly. 2. Improved infiltrates or vascular congestion. 3. No new infiltrates. Electronically signed by: Kaiden Greer MD (10/25/2020 7:48 AM) [id number] Heart Score C/O Chest Pain: No HEART Score for Chest Pain: HEART Score for Chest Pain Response (Comments) Value History Slighlty/Non-Suspicious 0 ECG Normal 0 Age > 65 2 Risk Factors 1 or 2 Risk Factors 1 Troponin < Normal Limit 0 Total 3 Risk Factors: Risk Factors: DM, Current or recent (<one month) smoker, HTN, HLP, family history of CAD, obesity. Risk Scores: Risk Factors: DM, Current or recent (<one month) smoker, HTN, HLP, family history of CAD, obesity. Course & Med Decision Making Course & Med Decision Making Hemodynamically stable patient with HPI concerning for recent diagnosis of pneumonia with delirium and recent fall at home, physical examination consistent with delirium as patient is typically AOX3 and able to perform all ADLs Comprehensive work-up grossly unremarkable; however, there is concern for untreated pneumonia as patient has not taken her previously prescribed azithromycin past 48 hours. She is not safe for discharge home, family cannot care for her at present I contacted Dr. Betancourt and discussed case at length, he agreed need for admission for IV antibiotics and improvement in delirium prior to safe departure back home I have updated patient on proposed plan of care and she remained amenable, all questions and concerns addressed prior to ER transport to [facility] for admission Critical Care Time This patient required critical care. Due to the fact that the patient required a significant amount of one on one physician - patient contact time, ordering and review of studies, arranging urgent treatment with development of a management plan, evaluation of patients response to treatment with frequent reassessments, and discussions with other providers this patient required 35 minutes of critical care time. Critical care time was indicated due to the inherent instability and/or potential for instability in this patient. The critical care time that is allocated to this patient is above and beyond any time spent on any other billable procedures performed on this patient. Dragon Disclaimer Dragon Disclaimer This electronic medical record was generated, in whole or in part, using a voice recognition dictation system. Departure Departure: Impression: Primary Impression: Pneumonia Additional Impressions: Delirium History of recent fall Disposition: 09 ADMITTED INPT THIS HOSP Admitting Physician: Rahel Betancourt Condition: STABLE Referrals: EVETTE BARRIOS MD (PCP) Problem Qualifiers SHAAN BARRERA DO Oct 25, 2020 07:02
[2020-10-25 07:24] LABS: BASO # 0.1 x10^3/uL (0.0-0.2); BASO % 1 % (0-3); EOS # 0.6 x10^3/uL (0.0-0.7); EOS % 9 % (0-3); HEMATOCRIT 33.7 % (36.0-47.0); HEMOGLOBIN 11.4 g/dL (12.0-15.5); LYMPH # 2.4 x10^3/uL (1.0-4.8); LYMPH % 39 % (24-48); MEAN CORPUSCULAR HEMOGLOBIN 33 pg (25-35); MEAN CORPUSCULAR HGB CONC 34 g/dL (31-37); MEAN CORPUSCULAR VOLUME 99 fL (79-100); MONO # 0.7 x10^3/uL (0.0-1.1); MONO % 11 % (0-9); NEUT # 2.4 x10^3uL (1.8-7.7); NEUT % 40 % (31-73); PLATELET COUNT 220 x10^3/uL (140-400); RED BLOOD COUNT 3.41 x10^6/uL (3.50-5.40); RED CELL DISTRIBUTION WIDTH 13.1 % (11.5-14.5); WHITE BLOOD COUNT 6.1 x10^3/uL (4.0-11.0)
[2020-10-25 07:37] LABS: CALCIUM 9.1 mg/dL (8.5-10.1); CREATININE 0.9 mg/dL (0.6-1.0); GFR 59.7; POTASSIUM 4.3 mmol/L (3.5-5.1)
--- NOTE | 2020-10-25 07:50 | RAD ---
AP chest. HISTORY: Altered mental status. AP view was taken of the chest. Lungs are free of infiltrates. Heart is enlarged. There are no conflu ent infiltrates. There is no effusion. There's been an improvement compared to the study from 3 days ago. IMPRESSION: 1. Cardiomegaly. 2. Improved infiltrates or vascular congestion. 3. No new infiltrates. Electronically signed by: Kaiden Greer MD (10/25/2020 7:48 AM) [id number]
--- NOTE | 2020-10-25 07:54 | RAD ---
EXAMINATION: CT HEAD AND C-SPINE WO CLINICAL HISTORY: Unwitnessed fall TECHNIQUE: Serial axial images without IV contrast were obtained from the vertex to the foramen magnum. CT of the cervical spine without IV contrast. Spiral, high resolution axial images were obtained from the skull base to the cervicothoracic junction with sagittal and coronal planar reconstructions. CT Dose Reduction Employed: One or more of the following individualized dose reduction techniques wer e utilized for this examination: 1. Automated exposure control 2. Adjustment of the mA and/or kV ac cording to patient size 3. Use of iterative reconstruction technique. COMPARISON: None FINDINGS: BRAIN: Acute Change: No evidence of an acute contusion or other acute parenchymal process. Hemorrhage: No evidence of acute intracranial hemorrhage. Mass Lesion/Mass Effect: No evidence of intracranial mass or extraaxial fluid collection. No signific ant mass effect. Chronic Change: Confluent areas of hypoattenuation in the supratentorial white matter, nonspecific bu t likely represents marked microvascular ischemia. Small focal calcification in the periventricular w [place] matter adjacent to the body of the right lateral ventricle. Atherosclerotic calcification of the anterior and posterior circulation. Parenchyma: Mild to moderate generalized volume loss. Ventricles: Ventricular enlargement concordant with degree of parenchymal volume loss. Paranasal Sinuses and Skull Base: Mild secretions in the frontal and ethmoid sinuses. No evidence of acute calvarial fracture. C-SPINE: Alignment: Normal anatomic alignment. Osseous Structures: No evidence of acute fracture or spondylolisthesis. Degenerative Changes: Moderate to marked multilevel degenerative disc disease and neural foraminal na rrowing in the mid to lower cervical spine. Mild facet arthropathy. No evidence of significant osseou s spinal stenosis. Cervical Soft Tissues: No prevertebral soft tissue swelling. Incidentally noted enlarged heterogeneou s multinodular thyroid. Carotid atherosclerotic calcification. IMPRESSION: BRAIN: No evidence of acute intracranial abnormality. Marked chronic white matter microvascular ischemic changes. C-SPINE: No evidence of acute osseous abnormality involving the cervical spine. Multilevel cervical degenerative disc disease and neural foraminal narrowing as described. Incidentally noted enlarged heterogeneous multinodular thyroid, recommend nonemergent thyroid ultraso und for further evaluation if one has not been recently obtained. This can be obtained on an outpatie nt basis. Electronically signed by: Prabhakar Marin DO (10/25/2020 7:52 AM) [id number]
[2020-10-25] MEDS ORDERED: ACETAMINOPHEN 325 MG TABLET PO PRN (08:15)
[2020-10-25] MEDS ORDERED: ONDANSETRON PF 4 MG/2 ML VIAL. IVP PRN (08:15)
[2020-10-25] MEDS ORDERED: ONDANSETRON PF 4 MG/2 ML VIAL. IVP ONE (08:15)
[2020-10-25] MEDS ORDERED: AZITHROMYCIN 250 MG in IV NORMAL SALINE 250ML 250 ML IV ONE (08:15)
[2020-10-25] MEDS ORDERED: cefTRIAXone SODIUM 1 GM VIAL ONE (08:20)
[2020-10-25] MEDS ORDERED: IV NORMAL SALINE 50ML 50 ML ONE (08:20)
[2020-10-25] MEDS ORDERED: IV NORMAL SALINE 250ML 250 ML ONE (08:20)
[2020-10-25] MEDS ORDERED: AZITHROMYCIN 500 MG VIAL. IV ONE (08:20)
--- NOTE | 2020-10-25 08:42 | EKG ---
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
[2020-10-25] MEDS ORDERED: METO50TA29 PO (10:35)
[2020-10-25] MEDS ORDERED: LISI20TA18 PO (10:38)
[2020-10-25] MEDS ORDERED: OXYB-36 PO (10:38)
[2020-10-25] MEDS ORDERED: FOLI20CA PO (10:38)
[2020-10-25] MEDS ORDERED: HYDR12.58 PO (10:38)
[2020-10-25 11:35] VITALS: BP 118/63
[2020-10-25 16:19] VITALS: BP 137/59
[2020-10-25 19:19] VITALS: BP 125/67
--- NOTE | 2020-10-25 20:01 | HP ---
ADMIT DATE: 10/25/2020 HISTORY OF PRESENT ILLNESS: The patient is an 85-year-old female patient, who was brought by the EMS for altered mental status. She was recently seen and evaluated at the Emergency Room about 3 days ago and was diagnosed with pneumonia and offered admission; however, the patient had full capacity at that time and declined admission. She returned home under the care of her family members and was prescribed p.o. azithromycin for outpatient treatment. Nonetheless, the patient's family reported decline in mentation in the preceding 24 hours to arrival. She has reportedly unwitnessed ground level fall that occurred the day before admission and on admission day, the patient continued to exhibit altered mentation, which concerned her family, prompting the call to the EMS for transportation to the facility. There has been no fever, vision changes, chest pain, hemoptysis, shortness of breath, abdominal pain, UTI like symptoms or changes in motor or sensory function and no neurological deficit reported. She was extensively investigated and has had lab work done, which showed a white cell count of 6100. Her chemistry showed hyponatremia. While in the Emergency Room, she has had a chest x-ray, which showed that the lungs are free of infiltrate, heart is enlarged. There is no confluent infiltrate, no effusion, has been an improvement compared to the study from [address] scan of the head and cervical spine showed that there is no evidence of acute intracranial abnormalities, marked chronic white matter microvascular ischemic changes. There is no evidence of acute osseous abnormality involving the cervical spine, multilevel cervical degenerative disk disease and neural foramina, narrowing as described. Incidental nodes of enlarged heterogenous multinodular thyroid. The radiologist recommended nonemergent thyroid ultrasound for further evaluation if one has not been recently obtained and can be obtained as an outpatient basis. She was admitted and was basically continued on IV antibiotic in the form of Rocephin and Zithromax as she clinically has marked obvious crepitation mostly on the left side posteriorly. Continued to be extremely confused, agitated and at times restless. PAST MEDICAL HISTORY: Significant for seizure disorder, hypertension, atrial fibrillation, dementia, unsteady gait and multiple falls. PAST SURGICAL HISTORY: Significant for left hip fracture, status post open reduction and internal fixation and cataract extraction. ALLERGIES: She has no known drug allergies. MEDICATIONS: She is currently on following medications: She is on azithromycin 250 mg once a day, metoprolol succinate 50 mg once a day, lisinopril 20 mg once a day, phenytoin sodium extended release 300 mg at bedtime, levetiracetam 500 mg twice a day, hydrochlorothiazide 12.5 mg once a day, oxybutynin chloride 5 mg extended release once a day, folic acid 1 mg at bedtime. FAMILY HISTORY: She has one brother who is still alive. Her sister of breast cancer with metastasis to the brain. Father of cerebrovascular accident and mother of myocardial infarction. SOCIAL HISTORY: She is and remarried. Her second has and currently lives with one of her youngest daughter. Her oldest daughter also has . She used to be a heavy smoker, smoked 2 packs a day, quit about 30 years ago. She does not drink alcohol. 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 PHYSICAL EXAMINATION: GENERAL: When I examined her, she was somewhat pale. No jaundice, cyanosis or thyromegaly. No jugular venous distension. No limb edema. VITAL SIGNS: Her heart rate was 64, blood pressure was 118/63, temperature was 97.6, respiratory rate was 18 and oxygen saturation was 99%. HEAD, EYES, EARS, NOSE AND THROAT: Showed normocephalic, atraumatic. NECK: Supple. HEART: Showed normal first and second heart sounds. No gallop, rub or murmur. CHEST: Clear to auscultation. No crepitation or rhonchi. ABDOMEN: Distended, soft, nontender. NEUROLOGIC: She is somewhat confused, but all her cranial nerves are intact. She moves extremities without difficulty. She ambulates with a walker; however, according to her daughter, she is very unsteady, has multiple falls. LABORATORY DATA: Her white cell count was 6100, hemoglobin 11.4, hematocrit 33, MCV 99, and platelet count 220,000. Her chemistry showed serum sodium of 132, potassium 4.3, chloride 96, bicarbonate 28, anion gap of 8, BUN 19, creatinine 0.9, estimated GFR was 59 mL per minute. Her glucose 112. Lactic acid is 1.3, calcium was 9.1. ASSESSMENT: Left lower lobe pneumonia, delirium, history of recurrent falls, dementia, seizure disorder, hypertension. PLAN: My plan is to continue with IV antibiotic for now. Apparently, according to her daughter, the patient has been extremely aggressive towards her daughter and becomes agitated and they were wondering about [facility]. I will obviously speak with our social media developer as well as her intake nurses to see if she qualifies to go upstairs for inpatient psychiatric stabilization. CHRISTO CASTILLO MD DR: ROBERT/kenia JOB#: [id number] / [id number]
[2020-10-25] MEDS: FOLIC ACID 1 MG TABLET PO SCH (20:14)
[2020-10-25] MEDS: levETIRAcetam 500 MG TABLET PO SCH (20:14)
[2020-10-25] MEDS: PHENYTOIN SODIUM EXTENDED 100 MG CAPSULE PO SCH (20:14)
[2020-10-25] MEDS: OLANZapine IM 10 MG VIAL. IM PRN (20:15)
[2020-10-25] MEDS ORDERED: hydroCHLOROthiazide 12.5 MG CAPSULE PO PRN (20:45)
[2020-10-26 06:12] VITALS: BP 110/42
[2020-10-26 07:12] LABS: HEMATOCRIT 32.4 % (36.0-47.0); RED BLOOD COUNT 3.3 x10^6/uL (3.50-5.40); WHITE BLOOD COUNT 4.8 x10^3/uL (4.0-11.0)
[2020-10-26 07:28] LABS: ALBUMIN 3.3 g/dL (3.4-5.0); ALBUMIN/GLOBULIN RATIO 1.1 (1.0-1.7); CALCIUM 9.1 mg/dL (8.5-10.1); CREATININE 0.8 mg/dL (0.6-1.0); GFR 68.3; TOTAL BILIRUBIN 0.3 mg/dL (0.2-1.0); TOTAL PROTEIN 6.2 g/dL (6.4-8.2)
[2020-10-26] MEDS: levETIRAcetam 500 MG TABLET PO SCH ×2 (09:12→22:39)
[2020-10-26] MEDS: OXYBUTYNIN CHLORIDE 5 MG TABLET PO SCH (09:12)
[2020-10-26] MEDS: METOPROLOL SUCC 24HR ER 50 MG TAB.ER.24H. PO SCH (09:13)
[2020-10-26] MEDS: LISINOPRIL 20 MG TABLET PO SCH (09:13)
[2020-10-26 10:10] VITALS: BP 129/85
[2020-10-26] MEDS ORDERED: LOPERAMIDE 2 MG CAPSULE PO PRN (12:30)
[2020-10-26] MEDS ORDERED: ACETAMINOPHEN 325 MG TABLET PO PRN (12:30)
[2020-10-26] MEDS: OLANZapine IM 10 MG VIAL. IM PRN (14:00)
[2020-10-26 14:31] VITALS: BP 119/69
--- NOTE | 2020-10-26 16:20 | PN ---
DATE: 10/26/2020 SUBJECTIVE: The patient is resting in her chair comfortably in no apparent distress. She continued to have cough with whitish sputum, has had episodes of visual hallucination, thinking there are many alligators around her. PHYSICAL EXAMINATION: GENERAL: When I examined her, she looked pale, but no jaundice, cyanosis or thyromegaly. No jugular venous distension. No lower limb edema. VITAL SIGNS: Her heart rate was 83, blood pressure was 129/85, temperature was 97.6, respiratory rate 20, and oxygen saturation was 93%. HEAD, EYES, EARS, NOSE AND THROAT: Showed normocephalic and atraumatic. NECK: Supple. HEART: Showed normal first and second heart sounds. No gallop or murmur. CHEST: Shows central trachea, equal chest expansion, air entry with vesicular breath sounds anteriorly. Posteriorly, the patient has a crepitation mostly in the left side posteriorly. I could not appreciate any rhonchi. ABDOMEN: Distended, soft, nontender. NEUROLOGIC: She is awake, alert, responding appropriately. Cranial nerves intact. She moves extremities without difficulty. She ambulates with a walker. Her intake and output incompletely recorded. LABORATORY DATA: Her lab work this morning showed a white cell count 4800, hemoglobin 11, hematocrit 32, MCV 98 and platelet count of 197,000. Serum sodium was 132, potassium 4, chloride 98, bicarbonate 27, anion gap of 7, BUN 14, creatinine 0.8, estimated GFR was 68 mL per minute. Her glucose was 93, calcium was 9.1. Total bilirubin, AST, ALT, alkaline phosphatase were normal. Total protein 6.2, albumin 3.3. ASSESSMENT: 1. Community-acquired pneumonia, for which she continues to be on IV antibiotic in the form of Rocephin and Zithromax. 2. Hypertension, reasonably controlled on metoprolol and lisinopril. 3. Seizure disorder for which she is on phenytoin 300 mg extended release capsules once a day. 4. Atrial fibrillation, rate controlled, not anticoagulated. The patient has also unsteady gait and multiple falls, dementia with behavioral disturbances. The patient is very agitated, restless and has also visual hallucination. We did consult Dr. Mcpherson to evaluate her and once we have her DPOA signed, she might be a candidate to go to inpatient psychiatric stabilization. CHRISTO CASTILLO MD DR: Mj JOB#: [id number] / [id number]
[2020-10-26 22:30] VITALS: BP 126/64
[2020-10-26] MEDS: FOLIC ACID 1 MG TABLET PO SCH (22:39)
[2020-10-26] MEDS: PHENYTOIN SODIUM EXTENDED 100 MG CAPSULE PO SCH (22:39)
[2020-10-27 05:27] VITALS: BP 123/63
[2020-10-27 08:02] LABS: HEMOGLOBIN 11.3 g/dL (12.0-15.5); RED BLOOD COUNT 3.43 x10^6/uL (3.50-5.40); RED CELL DISTRIBUTION WIDTH 13.5 % (11.5-14.5); WHITE BLOOD COUNT 5.4 x10^3/uL (4.0-11.0)
[2020-10-27 08:20] LABS: ALBUMIN 3.4 g/dL (3.4-5.0); ALBUMIN/GLOBULIN RATIO 1.1 (1.0-1.7); CALCIUM 8.9 mg/dL (8.5-10.1); CREATININE 0.8 mg/dL (0.6-1.0); GFR 68.3; POTASSIUM 4.3 mmol/L (3.5-5.1); TOTAL BILIRUBIN 0.3 mg/dL (0.2-1.0); TOTAL PROTEIN 6.4 g/dL (6.4-8.2)
[2020-10-27] MEDS: levETIRAcetam 500 MG TABLET PO SCH ×2 (08:25→21:19)
[2020-10-27] MEDS: OXYBUTYNIN CHLORIDE 5 MG TABLET PO SCH (08:25)
[2020-10-27] MEDS: LISINOPRIL 20 MG TABLET PO SCH (08:25)
[2020-10-27] MEDS: METOPROLOL SUCC 24HR ER 50 MG TAB.ER.24H. PO SCH (08:25)
[2020-10-27 11:12] VITALS: BP 106/53
[2020-10-27] MEDS: AZITHROMYCIN 250 MG TABLET. PO SCH (14:27)
[2020-10-27] MEDS: OLANZapine IM 10 MG VIAL. IM PRN (14:27)
[2020-10-27 14:50] VITALS: BP 119/68
--- NOTE | 2020-10-27 18:25 | PN ---
DATE: 10/27/2020 SUBJECTIVE: The patient is resting, slightly propped up in bed, in no apparent distress, on questioning her, denied any complaint. She continued to have cough with scanty sputum. The nursing staff stated that she becomes very agitated, aggressive and combative in the afternoon and overnight. She is sundowning, becomes more confused as the day goes by. PHYSICAL EXAMINATION: GENERAL: When I examined her this afternoon, she looked well and was slightly pale, no jaundice, cyanosis or thyromegaly. No jugular venous distension. No limb edema. VITAL SIGNS: Her heart rate was 75, blood pressure was 106/53, temperature 98.3, respiratory rate was 18 and oxygen saturation was 94%. HEAD, EYES, EARS, NOSE AND THROAT: Showed normocephalic, atraumatic. NECK: Supple. HEART: Showed normal first and second heart sounds. No gallop or murmur. CHEST: Shows central trachea, equal bilateral expansion, air entry, vesicular sounds with crepitation mostly in the left side posteriorly. I could not appreciate any rhonchi. ABDOMEN: Distended, soft. NEUROLOGIC: She is awake, alert, but confused. All her cranial nerves are intact. She moves extremities without difficulty. She ambulates with a walker. Her intake and output are incompletely recorded. LABORATORY DATA: Her lab work this morning showed a white cell count 5400, hemoglobin 11, hematocrit 34, MCV 99 and platelet count 221,000. Her chemistry showed a serum sodium 134, potassium 4.3, chloride 99, bicarbonate 27, anion gap of 8, BUN 18, creatinine 0.8, estimated GFR was 68 mL per minute. Her glucose was 87, calcium was 8.9. Total bilirubin, AST, ALT, alkaline phosphatase were normal. Total protein 6.4, albumin was 3.4. TSH was 0.896. ASSESSMENT: 1. Community-acquired pneumonia, for which continues to be on IV antibiotic from Rocephin and Zithromax. 2. Hypertension, reasonably controlled on metoprolol and lisinopril. 3. Seizure disorder for which she is on phenytoin 300 mg extended release. 4. Atrial fibrillation, rate controlled, not anticoagulated. 5. The patient is unsteady on his gait and has multiple falls. 6. Dementia with behavioral disturbance. The patient is sundowning, becomes very agitated and has visual hallucination. PLAN: My plan is to continue with IV antibiotic for now. She has now a DPOA and we will consult the [facility] to screen her for inpatient psychiatric stabilization. CHRISTO CASTILLO MD DR: ROBERT/kenia JOB#: [id number] / [id number]
[2020-10-27 19:00] VITALS: BP 126/67
[2020-10-27] MEDS: PHENYTOIN SODIUM EXTENDED 100 MG CAPSULE PO SCH (21:19)
[2020-10-27] MEDS: FOLIC ACID 1 MG TABLET PO SCH (21:19)
[2020-10-28 05:39] VITALS: BP 105/57
[2020-10-28] MEDS: LISINOPRIL 20 MG TABLET PO SCH (08:20)
[2020-10-28] MEDS: METOPROLOL SUCC 24HR ER 50 MG TAB.ER.24H. PO SCH (08:20)
[2020-10-28] MEDS: levETIRAcetam 500 MG TABLET PO SCH (08:20)
[2020-10-28] MEDS: OXYBUTYNIN CHLORIDE 5 MG TABLET PO SCH (08:20)
[2020-10-28] MEDS: AZITHROMYCIN 250 MG TABLET. PO SCH (08:20)
[2020-10-28 10:53] VITALS: BP 117/63
[2020-10-28 14:44] VITALS: BP 128/71
[2020-10-28] MEDS: OLANZapine IM 10 MG VIAL. IM PRN (16:04)
[2020-10-28] MEDS ORDERED: CEFD300C PO (17:11)
--- NOTE | 2020-10-28 18:30 | DS ---
DATE OF DISCHARGE: 10/28/2020 HOSPITAL COURSE: The patient is an 85-year-old female patient who was admitted through the Emergency Room with altered mental status. She has also unwitnessed ground level fall on the day before admission and on admission day, the patient continued to exhibit altered mental status, which concerned her family prompting to call to the EMS for transportation to the facility. She was found to have left lower lobe pneumonia and her chemistry showed that she has hyponatremia, although chest x-ray showed that no infiltrate. Clinically, she has marked crackles, mostly in the left side posteriorly. She continued to have cough with scanty yellowish sputum and therefore, we will continue with IV antibiotic. While in the hospital, she also exhibited aggressive behavior. She was combative and also has visual hallucination, seeing alligators all over the place and therefore, the patient was continued on IV antibiotic in the form of Rocephin and Zithromax. She was evaluated by the [facility] and she was accepted there for inpatient psychiatric stabilization. PHYSICAL EXAMINATION: GENERAL: When I saw her today, she looked well and was clearly in no apparent respiratory distress. She continued to be somewhat combative, aggressive, threatening the nursing staff, but otherwise she was in no apparent respiratory distress. She was pale, but no jaundice or cyanosis. No lymphadenopathy, no thyromegaly. No jugular venous distension. No limb edema. VITAL SIGNS: Her heart rate was 81, blood pressure was 128/71, temperature 97.6, respiratory rate 20, and oxygen saturation was 97%. HEAD, EYES, EARS, NOSE AND THROAT: Showed normocephalic, atraumatic. NECK: Supple. HEART: Showed normal first and second heart sounds. No gallop or murmur. CHEST: Shows central trachea, equal bilateral expansion, air entry expands with crepitation mostly on the left side posteriorly. I could not appreciate any rhonchi. ABDOMEN: Slightly distended, soft, nontender. NEUROLOGIC: She is demented, but without any obvious lateralizing sign. She ambulates with a walker with 1% assist. LABORATORY DATA: Showed a white cell count 5400, hemoglobin 11, hematocrit 34, MCV 99 and platelet count 221,000. Her chemistry showed a serum sodium 134, potassium 4.3, chloride 99, bicarbonate 27, anion gap of 8, BUN 18, creatinine 0.8, estimated GFR was 68 mL per minute. Her glucose was 87, calcium was 8.9, magnesium 2.1. Total bilirubin, AST, ALT, alkaline phosphatase were normal. Her total protein 6.4, albumin 3.4. Serum triglycerides were 60, total cholesterol 184, LDL was 96, VLDL was 11, HDL was 76 and ratio was 2. TSH was 0.896. Her D-dimer was 0.64. Her coronavirus PCR was not detectable. DISCHARGE MEDICATIONS: She was transferred to [facility] to continue on cefdinir 300 mg twice a day for 7 days, azithromycin 250 mg once a day for 3 days, hydrochlorothiazide 12.5 mg once a day, levetiracetam for Keppra 500 mg twice a day, lisinopril 20 mg once a day, metoprolol succinate 50 mg once a day, omeprazole 20 mg at bedtime, oxybutynin chloride 1 tablet daily and phenytoin 300 mg at bedtime. FINAL DISCHARGE DIAGNOSES: 1. Community-acquired pneumonia to continue on oral Zithromax and cefdinir. 2. Hypertension, reasonably controlled on metoprolol, lisinopril, as well as hydrochlorothiazide. 3. Seizure disorder, which is well controlled on phenytoin 300 mg extended release for atrial fibrillation, rate controlled, not anticoagulated. 4. The patient has unsteady gait with multiple falls. 5. Dementia with behavioral disturbances. The patient has been sundowning, becoming very agitated, has had visual hallucination and has been combative and aggressive. She was transferred to [facility] for inpatient psychiatric stabilization. CHRISTO CASTILLO MD DR: ROBERT/kenia JOB#: [id number] / [id number]
[2020-10-29 01:13] LABS: HEMOGLOBIN A1C 5.6 % (4.8-5.6)
== END 2020-10-28 18:57 | DRG 178 ==
LOC: ER 06:56 → 1 SOUTH 08:04
PROVIDERS: ADMIT Internal Medicine; ATTEND Internal Medicine
DX: J15.6 Pneumonia due to other Gram-negative bacteria (principal); E87.1 Hypo-osmolality and hyponatremia; F03.91 Unspecified dementia, unspecified severity, with behavioral disturbance; F05 Delirium due to known physiological condition; J15.9 Unspecified bacterial pneumonia; R29.6 Repeated falls; M50.30 Other cervical disc degeneration, unspecified cervical region; I50.9 Heart failure, unspecified; I48.91 Unspecified atrial fibrillation; G40.909 Epilepsy, unspecified, not intractable, without status epilepticus; I11.0 Hypertensive heart disease with heart failure; R26.81 Unsteadiness on feet; R44.1 Visual hallucinations; R45.1 Restlessness and agitation; E04.2 Nontoxic multinodular goiter; W18.30XA Fall on same level, unspecified, initial encounter; Z20.822 Contact with and (suspected) exposure to COVID-19; Z87.891 Personal history of nicotine dependence; Z86.73 Personal history of transient ischemic attack (TIA), and cerebral infarction without residual deficits; Z87.440 Personal history of urinary (tract) infections; Z82.49 Family history of ischemic heart disease and other diseases of the circulatory system; Z80.3 Family history of malignant neoplasm of breast; Z80.8 Family history of malignant neoplasm of other organs or systems; Z82.3 Family history of stroke; Y93.89 Activity, other specified; Y92.89 Other specified places as the place of occurrence of the external cause; Y99.8 Other external cause status; Z98.49 Cataract extraction status, unspecified eye
CPT/HCPCS: 36415; 70450; 71045; 72125; 80048; 80053; 80061; 82306; 82607; 83036; 83605; 83735; 84443; 84484; 85025; 85027; 85379; 86592; 87040; 93005; 96365; 96366; 96368; 96375; J0456; J0696; J2405; J3490; J7050; U0003; U0005; 97110; 97116; 97530; 99291-25

== ENCOUNTER 2020-10-28 19:14 | Inpatient (IN) | payer MEDICARE ==
[~2020-10-28] VITALS: Ht 154.9 cm; Wt 48.6 kg
[~2020-10-28 19:14] MED LIST changes: +CEFD300C PO; +FOLI20CA PO; +HYDR12.58 PO; +OXYB-36 PO
[2020-10-28] MEDS ORDERED: hydroCHLOROthiazide 12.5 MG CAPSULE PO PRN (20:00)
--- NOTE | 2020-10-28 20:00 | NUR ---
Admission Note with Justification for Admission to [facility] Patient admitted to [facility] for protective oversight for emergency stabilization of acute psychiatric crisis. Pt admitted from: Mode of arrival: wc Accompanied By: [facility] Staff Precipitating behaviors that initiated intake and admission: refusing meds/cares, sundowning, aggressive towards staff, think alligators are in her room, combative w dtr, verbally abusive, name calling, anxious Description of failure of out patient attempts at stabilization in previous setting list behavior and medication trials:medication Behaviors and assessment findings upon admission: pt sedated; pt received IM Zyprexa at 1630 on Plan: Admit for protective oversight for adjustment and stabilization of medications, behaviors and mood. Intense treatment regimen including groups, medication adjustments, therapy, consistent regimen for ADL's, self care, and sleep hygiene. Daily monitoring by Inpatient staff, Psychiatry, and Medical Physician.
[2020-10-28] MEDS ORDERED: traZODone 50 MG TABLET. PO PRN (20:30)
--- NOTE | 2020-10-28 20:37 | HP ---
ADMIT DATE: 10/28/2020 This note covers elements not covered in my initial note 10/28/2020. IDENTIFYING DATA: The patient is an 85-year-old female who was transferred from one [facility] Medical/Surgical floor after her COVID screen was negative. She was initially referred to [facility] on account of worsening agitation, aggression, disruptive behaviors at home where she lives with her daughter due to her memory deficits. She had been refusing medications, sundowning, aggressive. She was having visual hallucinations, thinking there were alligators in her room. She had been combative with her daughter at home, verbally abusive, anxious. She was having sleep and appetite changes, had failed outpatient psychiatric interventions resulting in this referral. CHIEF COMPLAINT: "I came today. I did live at home with my daughter." HISTORY OF PRESENT ILLNESS: The patient has a history of dementia, early Alzheimer's vascular within the context of her seizure disorder. She has been paranoid, delusional as noted above, having sleep and appetite changes, aggressive, disruptive behaviors at home, worsening with sundowning. No clear symptoms of bipolar disorder, suicidal or homicidal ideation. PAST PSYCHIATRIC HISTORY: As above. MEDICAL HISTORY: Positive for seizure disorder, status post pneumonia, hyponatremia, hypertension. DIET: Regular. Ambulates with walker. CODE STATUS: DNR. ALLERGIES: Negative. FAMILY HISTORY: Noncontributory. SOCIAL HISTORY: No history of alcohol, drug abuse, physical, sexual or drug abuse. She is not known to be a perpetrator. As noted, she lives at home with her daughter. 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 REACTION TO HOSPITALIZATION: The patient accepting of it. ASSETS: Supportive family. REVIEW OF SYSTEMS: No CV, , pulmonary, eye, ENT system symptoms on review. MENTAL STATUS EXAMINATION: The patient is oriented to herself and situation. Speech is coherent, low in rate and rhythm. Eye contact is poor, abstraction fair, computation impaired, language function intact. Short-term memory is impaired. She thought the year was 2000, but was able to get corrected to 2020. No suicidal or homicidal ideation. She is somewhat distractible, at times difficult to understand. IMPRESSION: Major neurocognitive disorder, early Alzheimer, vascular with delusion, depression; anxiety disorder, unspecified; impulse control disorder, unspecified. Rest as above. PLAN[facility]. I will see the patient daily individually from a psychiatric standpoint. Medical followup with Dr. Betancourt/Dr. Layton. Continue current psychotropics. Check a Dilantin level. Start trazodone 50 mg at bedtime p.r.n., may repeat x 1 for insomnia. She had been on BuSpar in the past, but it was since discontinued. May consider adding SSRI, Zoloft in due course. Following baseline assessment. ESTIMATED LENGTH OF STAY: 10-12 days. DISPOSITION: Plans back home with daughter and outpatient treatment when stable. MAN Deloris AYALA MD DR: LISA/kenia JOB#: [id number] / [id number]
[2020-10-28] MEDS: PANTOPRAZOLE 40 MG TABLET. PO SCH (21:00)
[2020-10-28] MEDS: PHENYTOIN SODIUM EXTENDED 100 MG CAPSULE PO SCH (21:00)
[2020-10-28] MEDS: CEFDINIR 300 MG CAPSULE PO SCH (21:00)
[2020-10-28] MEDS: levETIRAcetam 500 MG TABLET PO SCH (21:00)
[2020-10-28] MEDS ORDERED: MAGNESIUM HYDROXIDE 2,400 MG/30 ML ORAL.SUSP. PO PRN (21:00)
[2020-10-28] MEDS: FOLIC ACID 1 MG TABLET PO SCH (21:00)
[2020-10-28] MEDS ORDERED: METHYL SALICYLATE/MENTHOL TOPICAL OINTMENT 57GM TUBE. TP PRN (21:00)
[2020-10-28] MEDS ORDERED: ACETAMINOPHEN 325 MG TABLET PO PRN (21:00)
[2020-10-28] MEDS ORDERED: MAG HYDROX/AL HYDROX/SIMETH 30 ML ORAL.SUSP PO PRN (21:00)
[2020-10-28 21:53] VITALS: BP 127/65
--- NOTE | 2020-10-28 21:55 | PDOC ---
Exam Note: Mario Note: Please also refer to the separate dictated note~for this date of service dictated separately.~Patient seen individually. Discussed the patient with Nursing staff reviewed the chart.~Reviewed interim history and current functioning. Reviewed vital signs,~Labs/ Radiology~and current medications noted below. Continue current treatment with the changes noted in the dictated addendum note Current Medications: Meds: Current Medications Medications (Trade) Dose Ordered Sig/Deepthi Route PRN Reason Start Time Stop Time Status Last Admin Dose Admin Azithromycin (Zithromax) 250 mg DAILY PO 10/29/20 09:00 10/31/20 09:01 Cefdinir (Omnicef) 300 mg BID PO 10/28/20 21:00 Levetiracetam (Keppra) 500 mg BID PO 10/28/20 21:00 Lisinopril (Prinivil) 20 mg DAILY PO 10/29/20 09:00 Metoprolol Succinate (Toprol Xl) 50 mg DAILY PO 10/29/20 09:00 Phenytoin Sodium (Dilantin) 300 mg QHS PO 10/28/20 21:00 Folic Acid (Folic Acid) 1 mg HS PO 10/28/20 21:00 Hydrochlorothiazide (Microzide) 12.5 mg PRN DAILY PRN PO HTN 10/28/20 20:00 Pantoprazole Sodium (Protonix) 40 mg QHS PO 10/28/20 21:00 Oxybutynin Chloride (Ditropan) 5 mg DAILY PO 10/29/20 09:00 Trazodone HCl (Desyrel) 50 mg PRN QHS PRN PO INSOMNIA, MAY REPEAT X1 10/28/20 20:30 Acetaminophen (Tylenol) 650 mg PRN Q6HRS PRN PO MILD PAIN / TEMP > 100.3'F 10/28/20 21:00 Multi-Ingredient Ointment (Analgesic [place]) 1 juan c PRN QID PRN TP MUSCLE PAIN 10/28/20 21:00 Al Hydroxide/Mg Hydroxide (Mylanta Plus Xs) 15 ml PRN AFTMEALHC PRN PO DYSPEPSIA 10/28/20 21:00 Magnesium Hydroxide (Milk Of Magnesia) 2,400 mg PRN QHS PRN PO CONSTIPATION 10/28/20 21:00 I have reviewed the current psychotropics carefully including drug interactions. Risk benefit ratio favors no change other than as noted in my dictated progress note. Diagnosis: Problems: (1) Major neurocognitive disorder (2) Dementia in Alzheimer's disease with delusions (3) Dementia in Alzheimer's disease with depression (4) Dementia, vascular, with delusions (5) Dementia, vascular, with depression (6) Anxiety disorder, unspecified (7) Impulse control disorder, unspecified OVIDIO AYALA MD Oct 28, 2020 21:55
[2020-10-29 06:08] VITALS: BP 120/69
[2020-10-29 06:56] LABS: BASO # 0.1 x10^3/uL (0.0-0.2); BASO % 1 % (0-3); EOS # 0.4 x10^3/uL (0.0-0.7); EOS % 8 % (0-3); HEMATOCRIT 36.4 % (36.0-47.0); HEMOGLOBIN 12.3 g/dL (12.0-15.5); LYMPH # 1.5 x10^3/uL (1.0-4.8); LYMPH % 28 % (24-48); MEAN CORPUSCULAR HEMOGLOBIN 33 pg (25-35); MEAN CORPUSCULAR HGB CONC 34 g/dL (31-37); MEAN CORPUSCULAR VOLUME 98 fL (79-100); MONO # 0.6 x10^3/uL (0.0-1.1); MONO % 12 % (0-9); NEUT # 2.7 x10^3uL (1.8-7.7); NEUT % 51 % (31-73); PLATELET COUNT 230 x10^3/uL (140-400); WHITE BLOOD COUNT 5.3 x10^3/uL (4.0-11.0)
[2020-10-29 07:20] LABS: ALBUMIN 3.6 g/dL (3.4-5.0); ALBUMIN/GLOBULIN RATIO 1.1 (1.0-1.7); CALCIUM 9.2 mg/dL (8.5-10.1); CREATININE 0.7 mg/dL (0.6-1.0); GFR 79.7; MAGNESIUM 2.1 mg/dL (1.8-2.4); PHENY 30.8 mcg/mL (10.0-20.0); POTASSIUM 4.3 mmol/L (3.5-5.1); TOTAL BILIRUBIN 0.3 mg/dL (0.2-1.0); TOTAL PROTEIN 6.9 g/dL (6.4-8.2)
[2020-10-29] MEDS: AZITHROMYCIN 250 MG TABLET. PO SCH (09:00)
[2020-10-29 09:08] LABS: THYROXINE 4.9 ug/dL (4.5-12.0)
[2020-10-29] MEDS: OXYBUTYNIN CHLORIDE 5 MG TABLET PO SCH (09:22)
[2020-10-29] MEDS: levETIRAcetam 500 MG TABLET PO SCH ×2 (09:22→20:28)
[2020-10-29] MEDS: CEFDINIR 300 MG CAPSULE PO SCH ×2 (09:23→20:28)
[2020-10-29] MEDS: LISINOPRIL 20 MG TABLET PO SCH (09:23)
[2020-10-29] MEDS: METOPROLOL SUCC 24HR ER 50 MG TAB.ER.24H. PO SCH (09:23)
--- NOTE | 2020-10-29 10:51 | NUR ---
Megan has [facility] Part C Medicare Advantage Plan insurance. Call placed to Alec at [facility], , to inform that Megan has been admitted to [facility]. Authorization was approved from 10/28-10/30/20 with next review date on 10/31/20. A [facility] food products sales representative will contact [facility] for review on 10/31/20. Authorization number and call reference number is [id number].
--- NOTE | 2020-10-29 14:10 | NUR ---
WEEKLY ACTIVITY THERAPY NOTE Date of Admission: 10/28/20 Date of AT Assessment: TBD Precipitating behaviors that initiated intake and admission: refusing meds/cares, sundowning, aggressive towards staff, think alligators are in her room, combative w dtr, verbally abusive, name calling, anxious Goal aimed: TBD Initial Goal:TBD Weekly progress towards goal: NA Group participation level: NA Weekly highlights: arrived on [facility] Behaviors observed: Plan: meet/asses pt Beneficial adaptations:
[2020-10-29 14:23] LABS: THYROID STIM HORMONE (TSH) 1.002 uIU/mL (0.358-3.740)
[2020-10-29 16:04] VITALS: BP 95/59
--- NOTE | 2020-10-29 16:08 | NUR ---
This nurse received a call from pt's daughter Yamila (passcode was correctly given). Yamila states that her cell phone is broke and provided her house number ([phone]) for staff to contact her on. Consent form in pt's chart updated with the house phone number
[2020-10-29] MEDS: PHENYTOIN SODIUM EXTENDED 100 MG CAPSULE PO SCH (20:27)
[2020-10-29] MEDS: PANTOPRAZOLE 40 MG TABLET. PO SCH (20:28)
[2020-10-29] MEDS: FOLIC ACID 1 MG TABLET PO SCH (20:28)
--- NOTE | 2020-10-29 22:10 | PDOC ---
Exam Note: Mario Note: Please also refer to the separate dictated note~for this date of service dictated separately.~Patient seen individually. Discussed the patient with Nursing staff reviewed the chart.~Reviewed interim history and current functioning. Reviewed vital signs,~Labs/ Radiology~and current medications noted below. Continue current treatment with the changes noted in the dictated addendum note Assessment: Vital Signs/I&O: Vital Signs Date Time Temp Pulse Resp B/P (MAP) Pulse Ox O2 Delivery O2 Flow Rate FiO2 10/29/20 16:04 98.6 77 16 95/59 (71) 98 I & O 10/28/20 10/28/20 10/29/20 15:00 23:00 07:00 Intake Total 0 ml Balance 0 ml Labs: Laboratory Tests Test 10/29/20 06:32 White Blood Count 5.3 x10^3/uL (4.0-11.0) Red Blood Count 3.70 x10^6/uL (3.50-5.40) Hemoglobin 12.3 g/dL (12.0-15.5) Hematocrit 36.4 % (36.0-47.0) Mean Corpuscular Volume 98 fL (79-100) Mean Corpuscular Hemoglobin 33 pg (25-35) Mean Corpuscular Hemoglobin Concent 34 g/dL (31-37) Red Cell Distribution Width 13.0 % (11.5-14.5) Platelet Count 230 x10^3/uL (140-400) Neutrophils (%) (Auto) 51 % (31-73) Lymphocytes (%) (Auto) 28 % (24-48) Monocytes (%) (Auto) 12 % (0-9) H Eosinophils (%) (Auto) 8 % (0-3) H Basophils (%) (Auto) 1 % (0-3) Neutrophils # (Auto) 2.7 x10^3uL (1.8-7.7) Lymphocytes # (Auto) 1.5 x10^3/uL (1.0-4.8) Monocytes # (Auto) 0.6 x10^3/uL (0.0-1.1) Eosinophils # (Auto) 0.4 x10^3/uL (0.0-0.7) Basophils # (Auto) 0.1 x10^3/uL (0.0-0.2) D-Dimer (Lynn) 0.82 mg/L (0.00-0.50) H Sodium Level 135 mmol/L (136-145) L Potassium Level 4.3 mmol/L (3.5-5.1) Chloride Level 101 mmol/L (98-107) Carbon Dioxide Level 29 mmol/L (21-32) Anion Gap 5 (6-14) L Blood Urea Nitrogen 15 mg/dL (7-20) Creatinine 0.7 mg/dL (0.6-1.0) Estimated GFR (Cockcroft-Gault) 79.7 BUN/Creatinine Ratio 21 (6-20) H Glucose Level 88 mg/dL (70-99) Calcium Level 9.2 mg/dL (8.5-10.1) Magnesium Level 2.1 mg/dL (1.8-2.4) Iron Level 85 ug/dL (50-170) Total Iron Binding Capacity 219 ug/dL (250-450) L Iron Saturation 39 % (15-34) H Total Bilirubin 0.3 mg/dL (0.2-1.0) Aspartate Amino Transferase (AST) 20 U/L (15-37) Alanine Aminotransferase (ALT) 21 U/L (14-59) Alkaline Phosphatase 115 U/L (46-116) Total Protein 6.9 g/dL (6.4-8.2) Albumin 3.6 g/dL (3.4-5.0) Albumin/Globulin Ratio 1.1 (1.0-1.7) Triglycerides Level 50 mg/dL (0-150) Cholesterol Level 191 mg/dL (0-200) LDL Cholesterol, Calculated 99 mg/dL (0-100) VLDL Cholesterol, Calculated 10 mg/dL (0-40) Non-HDL Cholesterol Calculated 109 mg/dL (0-129) HDL Cholesterol 82 mg/dL (40-60) H Cholesterol/HDL Ratio 2.0 Vitamin B12 Level 347 pg/mL (247-911) 25-Hydroxy Vitamin D Total 10.0 ng/mL (30-100) L Thyroid Stimulating Hormone (TSH) 1.002 uIU/mL (0.358-3.740) Thyroxine (T4) 4.9 ug/dL (4.5-12.0) Total Triiodothyronine (TT3) 70 ng/dL (71-180) L Phenytoin (Dilantin) Level 30.8 mcg/mL (10.0-20.0) H Phenytoin Last Dose Date 10/28/20 Phenytoin Last Dose Time 2100 Treponema pallidum Antibody Nonreactive (Nonreactive) Current Medications: Meds: Laboratory Tests Test 10/29/20 06:32 White Blood Count 5.3 x10^3/uL Red Blood Count 3.70 x10^6/uL Hemoglobin 12.3 g/dL Hematocrit 36.4 % Mean Corpuscular Volume 98 fL Mean Corpuscular Hemoglobin 33 pg Mean Corpuscular Hemoglobin Concent 34 g/dL Red Cell Distribution Width 13.0 % Platelet Count 230 x10^3/uL Neutrophils (%) (Auto) 51 % Lymphocytes (%) (Auto) 28 % Monocytes (%) (Auto) 12 % Eosinophils (%) (Auto) 8 % Basophils (%) (Auto) 1 % Neutrophils # (Auto) 2.7 x10^3uL Lymphocytes # (Auto) 1.5 x10^3/uL Monocytes # (Auto) 0.6 x10^3/uL Eosinophils # (Auto) 0.4 x10^3/uL Basophils # (Auto) 0.1 x10^3/uL D-Dimer (Lynn) 0.82 mg/L Sodium Level 135 mmol/L Potassium Level 4.3 mmol/L Chloride Level 101 mmol/L Carbon Dioxide Level 29 mmol/L Anion Gap 5 Blood Urea Nitrogen 15 mg/dL Creatinine 0.7 mg/dL Estimated GFR (Cockcroft-Gault) 79.7 BUN/Creatinine Ratio 21 Glucose Level 88 mg/dL Calcium Level 9.2 mg/dL Magnesium Level 2.1 mg/dL Iron Level 85 ug/dL Total Iron Binding Capacity 219 ug/dL Iron Saturation 39 % Total Bilirubin 0.3 mg/dL Aspartate Amino Transf (AST/SGOT) 20 U/L Alanine Aminotransferase (ALT/SGPT) 21 U/L Alkaline Phosphatase 115 U/L Total Protein 6.9 g/dL Albumin 3.6 g/dL Albumin/Globulin Ratio 1.1 Triglycerides Level 50 mg/dL Cholesterol Level 191 mg/dL LDL Cholesterol, Calculated 99 mg/dL VLDL Cholesterol, Calculated 10 mg/dL Non-HDL Cholesterol Calculated 109 mg/dL HDL Cholesterol 82 mg/dL Cholesterol/HDL Ratio 2.0 Vitamin B12 Level 347 pg/mL 25-Hydroxy Vitamin D Total 10.0 ng/mL Thyroid Stimulating Hormone (TSH) 1.002 uIU/mL Thyroxine (T4) 4.9 ug/dL Total Triiodothyronine 70 ng/dL Phenytoin (Dilantin) Level 30.8 mcg/mL Phenytoin Last Dose Date 10/28/20 Phenytoin Last Dose Time 2100 Treponema pallidum Antibody Nonreactive Current Medications Medications (Trade) Dose Ordered Sig/Deepthi Route PRN Reason Start Time Stop Time Status Last Admin Dose Admin Azithromycin (Zithromax) 250 mg DAILY PO 10/29/20 09:00 10/31/20 09:01 10/29/20 09:00 Cefdinir (Omnicef) 300 mg BID PO 10/28/20 21:00 10/29/20 20:28 Levetiracetam (Keppra) 500 mg BID PO 10/28/20 21:00 10/29/20 20:28 Lisinopril (Prinivil) 20 mg DAILY PO 10/29/20 09:00 10/29/20 09:23 Metoprolol Succinate (Toprol Xl) 50 mg DAILY PO 10/29/20 09:00 10/29/20 09:23 Phenytoin Sodium (Dilantin) 300 mg QHS PO 10/28/20 21:00 10/29/20 20:27 Folic Acid (Folic Acid) 1 mg HS PO 10/28/20 21:00 10/29/20 20:28 Hydrochlorothiazide (Microzide) 12.5 mg PRN DAILY PRN PO HTN 10/28/20 20:00 Pantoprazole Sodium (Protonix) 40 mg QHS PO 10/28/20 21:00 10/29/20 20:28 Oxybutynin Chloride (Ditropan) 5 mg DAILY PO 10/29/20 09:00 10/29/20 09:22 Trazodone HCl (Desyrel) 50 mg PRN QHS PRN PO INSOMNIA, MAY REPEAT X1 10/28/20 20:30 Acetaminophen (Tylenol) 650 mg PRN Q6HRS PRN PO MILD PAIN / TEMP > 100.3'F 10/28/20 21:00 Multi-Ingredient Ointment (Analgesic [place]) 1 juan c PRN QID PRN TP MUSCLE PAIN 10/28/20 21:00 Al Hydroxide/Mg Hydroxide (Mylanta Plus Xs) 15 ml PRN AFTMEALHC PRN PO DYSPEPSIA 10/28/20 21:00 Magnesium Hydroxide (Milk Of Magnesia) 2,400 mg PRN QHS PRN PO CONSTIPATION 10/28/20 21:00 Current Medications Medications (Trade) Dose Ordered Sig/Deepthi Route PRN Reason Start Time Stop Time Status Last Admin Dose Admin Azithromycin (Zithromax) 250 mg DAILY PO 10/29/20 09:00 10/31/20 09:01 10/29/20 09:00 Lisinopril (Prinivil) 20 mg DAILY PO 10/29/20 09:00 10/29/20 09:23 Metoprolol Succinate (Toprol Xl) 50 mg DAILY PO 10/29/20 09:00 10/29/20 09:23 Oxybutynin Chloride (Ditropan) 5 mg DAILY PO 10/29/20 09:00 10/29/20 09:22 I have reviewed the current psychotropics carefully including drug interactions. Risk benefit ratio favors no change other than as noted in my dictated progress note. Diagnosis: Problems: (1) Impulse control disorder, unspecified (2) Anxiety disorder, unspecified (3) Dementia, vascular, with depression (4) Dementia, vascular, with delusions (5) Dementia in Alzheimer's disease with depression (6) Dementia in Alzheimer's disease with delusions (7) Major neurocognitive disorder OVIDIO AYALA MD Oct 29, 2020 22:10
--- NOTE | 2020-10-29 23:03 | NUR ---
Patient was in bed in her room for assessment and HS medications. Staff said she had been in the day room earlier tonight. Patient calm, cooperative and pleasant. She stated she was tired. Patient took medications whole and then asked nurse to turn the light out. Patient denied delusions when asked about alligators and has been cooperative with staff.
[2020-10-29 23:07] LABS: HEMOGLOBIN A1C 5.6 % (4.8-5.6)
[2020-10-30 05:59] VITALS: BP 104/67
[2020-10-30] MEDS: levETIRAcetam 500 MG TABLET PO SCH ×2 (07:29→21:18)
[2020-10-30] MEDS: AZITHROMYCIN 250 MG TABLET. PO SCH (07:29)
[2020-10-30] MEDS: OXYBUTYNIN CHLORIDE 5 MG TABLET PO SCH (07:30)
[2020-10-30] MEDS: METOPROLOL SUCC 24HR ER 50 MG TAB.ER.24H. PO SCH (07:30)
[2020-10-30] MEDS: LACTOBACILLUS RHAMNOSUS GG 1 CAPSULE. PO SCH ×2 (07:31→21:18)
[2020-10-30] MEDS: CEFDINIR 300 MG CAPSULE PO SCH ×2 (07:31→21:18)
[2020-10-30] MEDS: LISINOPRIL 20 MG TABLET PO SCH (07:31)
--- NOTE | 2020-10-30 08:20 | PDOC ---
Exam Note: Mario Note: This note is a late entry for 10/29/2020 covers elements not covered in my initial note. Subjective: The patient was reviewed in the morning of 10/29/2020 for a treatment team meeting with Bren Mckinney, Brisa Penaloza and Elizabeth (nursing home social worker), Nicolette, activity therapy and Neeru RN, discussed and reviewed the chart. The patient just slept 8-1/2 hours previous night. We reviewed the patients history at length. She is living at home with her daughter and [employer] private duty nursing was assisting. At this time the daughter is unable to take care of her at home and staff will be pursuing placement for her. We will check her CT head if not done recently, Dilantin level and initiate Zoloft 25 mg a day for mood and anxiety symptoms. Review of Systems: Ambulation impaired with walker. No CV, , pulmonary, eye, ENT system symptoms on review. Mental Status Exam: The patient is oriented to herself and situation. Speech is low in rate and rhythm, low in volume. Often response is monosyllabic. She ambulates bent forward at her waist. Insight, judgment, recent memory has some impairment. Remote is better. Language function intact. Mood and affect somewhat withdrawn. No suicidal or homicidal ideation. Laboratory Data: Reviewed. Impression: Major neurocognitive disorder Alzheimer vascular with delusion, depression, behavioral disturbance. Anxiety disorder unspecified. Impulse control disorder unspecified. Plan: Continue current psychotropics. Check CT head. Check Dilantin level. Adjust to reach therapeutic level. Initiate Zoloft 25 mg a day. Reviewed risk- benefit ratio and drug interactions. Assessment: Vital Signs/I&O: Vital Signs Date Time Temp Pulse Resp B/P (MAP) Pulse Ox O2 Delivery O2 Flow Rate FiO2 10/30/20 07:30 80 104/67 10/30/20 05:59 97.7 16 93 I & O 10/29/20 10/29/20 10/30/20 15:00 23:00 07:00 Intake Total 720 ml 600 ml Balance 720 ml 600 ml Current Medications: Meds: Current Medications Medications (Trade) Dose Ordered Sig/Deepthi Route PRN Reason Start Time Stop Time Status Last Admin Dose Admin Azithromycin (Zithromax) 250 mg DAILY PO 10/29/20 09:00 10/31/20 09:01 10/30/20 07:29 Cefdinir (Omnicef) 300 mg BID PO 10/28/20 21:00 11/04/20 20:59 10/30/20 07:31 Levetiracetam (Keppra) 500 mg BID PO 10/28/20 21:00 10/30/20 07:29 Lisinopril (Prinivil) 20 mg DAILY PO 10/29/20 09:00 10/29/20 09:23 Metoprolol Succinate (Toprol Xl) 50 mg DAILY PO 10/29/20 09:00 10/30/20 07:30 Phenytoin Sodium (Dilantin) 300 mg QHS PO 10/28/20 21:00 10/29/20 20:27 Folic Acid (Folic Acid) 1 mg HS PO 10/28/20 21:00 10/29/20 20:28 Hydrochlorothiazide (Microzide) 12.5 mg PRN DAILY PRN PO HTN 10/28/20 20:00 Pantoprazole Sodium (Protonix) 40 mg QHS PO 10/28/20 21:00 10/29/20 20:28 Oxybutynin Chloride (Ditropan) 5 mg DAILY PO 10/29/20 09:00 10/30/20 07:30 Trazodone HCl (Desyrel) 50 mg PRN QHS PRN PO INSOMNIA, MAY REPEAT X1 10/28/20 20:30 Acetaminophen (Tylenol) 650 mg PRN Q6HRS PRN PO MILD PAIN / TEMP > 100.3'F 10/28/20 21:00 Multi-Ingredient Ointment (Analgesic [place]) 1 juan c PRN QID PRN TP MUSCLE PAIN 10/28/20 21:00 Al Hydroxide/Mg Hydroxide (Mylanta Plus Xs) 15 ml PRN AFTMEALHC PRN PO DYSPEPSIA 10/28/20 21:00 Magnesium Hydroxide (Milk Of Magnesia) 2,400 mg PRN QHS PRN PO CONSTIPATION 10/28/20 21:00 Lactobacillus Rhamnosus (Culturelle) 1 cap BID PO 10/30/20 09:00 10/30/20 07:31 Lactobacillus Rhamnosus (Culturelle) 1 cap BID PO 10/30/20 09:00 Cancel Current Medications Medications (Trade) Dose Ordered Sig/Deepthi Route PRN Reason Start Time Stop Time Status Last Admin Dose Admin Azithromycin (Zithromax) 250 mg DAILY PO 10/29/20 09:00 10/31/20 09:01 10/30/20 07:29 Lisinopril (Prinivil) 20 mg DAILY PO 10/29/20 09:00 10/29/20 09:23 Metoprolol Succinate (Toprol Xl) 50 mg DAILY PO 10/29/20 09:00 10/30/20 07:30 Oxybutynin Chloride (Ditropan) 5 mg DAILY PO 10/29/20 09:00 10/30/20 07:30 Lactobacillus Rhamnosus (Culturelle) 1 cap BID PO 10/30/20 09:00 10/30/20 07:31 I have reviewed the current psychotropics carefully including drug interactions. Risk benefit ratio favors no change other than as noted in my dictated progress note. Diagnosis: Problems: (1) Impulse control disorder, unspecified (2) Anxiety disorder, unspecified (3) Dementia, vascular, with depression (4) Dementia, vascular, with delusions (5) Dementia in Alzheimer's disease with depression (6) Dementia in Alzheimer's disease with delusions (7) Major neurocognitive disorder OVIDIO AYALA MD Oct 30, 2020 08:20
[2020-10-30] MEDS ORDERED: LACTOBACILLUS RHAMNOSUS GG 1 CAPSULE. PO SCH (09:00)
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
--- NOTE | 2020-10-30 10:45 | NUR ---
ACTIVITY THERAPY ASSESSMENT completed based on notes, observation and interview. Pt was sitting in the day room with peers. Pt was willing and compliant to answer assessment questions for AT. Pt was calm and pleasant during time of assessment. Pt is oriented to her date, name and previous employment. Pt also ambulates with a walker. Pt thought she was at the [place]. AT asked pt what brought her to [facility] and pt said that she had fallen several times. AT then explained the groups that we provide on [facility] and pt appeared to be interested. Pt said that she likes exercise, rajesh and bingo. AT then asked pt about her family. Pt said that she is and did have three children.Pt reports that one of her children killed themselves. Pt talked about the change that she endured during the loss of her child but reports that she is handling it okay now. Pt reports no stress at this time. Pt did get a bit off topic and said that she had broken her glasses. AT told pt that she would check to see if we could do something about her glasses. Pt has attended a couple Activity Therapy groups and engages well with others. Initial goal aimed to support socialization and engagement. Pt will participate in at least three individual or group Activity Therapy sessions per week.
--- NOTE | 2020-10-30 13:31 | NUR ---
BHASKAR contacted Yamila, pt dtr/DPOA to discuss with her the conversation had with Yuliya this morning. Yamila is concerned about pt having too many assets for Medicaid and questioned if there was a way to hide the money. BHASKAR explained that hiding the money would be illegal; however, if the money went to pt care expenses (i.e. placement) or setting up planning expenses. Yamila reports that once they are able to find pt SSN and get the life insurance policy which is estimated to be greater than $25k currently. BHASKAR encouraged Yamila to keep working with [facility]; meanwhile BHASKAR will follow up with Michael on facility potentials.
--- NOTE | 2020-10-30 14:33 | TX PLAN ---
Interdisciplinary Tx Plan Admission Information Oct 28, 2020 at 19:14 Legal Status (on Admission): Voluntary DPOA/Guardian Name: Yamila Perez Contact Other Contact Verified Code Status: DNR Allergies: Coded Allergies: No Known Drug Allergies (Unverified , 10/25/20) Diagnoses Primary Diagnosis: Dementia, Alzheimers, Vascular type with BD and delirium Reasons for Admission: Aggressive, Agitated, Hallucinations, Combative, Confusion/Disoriented, Poor impulse control Problem in Patient's Words: Her cognition continues to worsen. Additional Admission Comments: According to the intake, pt is refusing medications, and cares, sundowning, aggressive towards staff, thinks alligators are in her room, combative with the dtr, verbally abusive, name calling, anxious, agitated. Problems Active Problems: Anxious Wandering Calm Inactive Problems: Medication compliant Pt Strengths/Limitations Ability for Pleasants: Poor Cognitive Functioning/Ability: Fair Communication Skills/Ability: Fair Financial Resources: Fair Insight/Judgement: Poor Intellectual Ability: Fair Physical Health: Fair Social Skills: Fair Stability in Family: Good Stability in School/Work: Poor Verbal Skills: Fair Discharge Criteria Discharge Criteria: No need for close observ., Adequate arrangements @DC, Improved behavior, Improved mood/thought Preliminary Discharge Plan Preliminary DC Plan: Placement Needed Special Precautions Fall Risk: Low Initial D/C Plan Pt will need placement upon discharge Identified Discharge Needs: Referral to higher level of care Currently Utilized Resources Currently Utilized Resources/P: Primary Care Physician Identified Problems/Hx/Goals Objectives/Short-Term Goals Short Term Goals: Dec. Aggression, Dec. Hallucination/Delus, Dec. Outbursts, Medication Stabilization, Promote Coping Skill Short Term Goals in Patient's: NA Interventions/Frequency Staff Interventions/Frequency&: Psychiatrist to assess pt at least 3x per week for medication management. Social Work to assess pt at least 2x per week to identify barriers to care and finalize discharge planning Nursing to assess medication effects, behavior modification, and completion of 15 minute checks daily. Encourage participation within group activities (if applicable) or 1:1 engagement based of activity dept goals. 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 Education: Pt graduated HS (12th grade completed) Community Follow-up Primary Care Physician Treatment Plan Explained Patient/Spirits Model had this treatment plan explained to him/her as indicated by the signature below and has been given the opportunity to ask questions and make suggestions: Date: Patient/Spirits Model Signature: Patient/Spirits Model Decline: No (Pt family actively involved in care.) ORIANA GRAVES Oct 30, 2020 14:33
--- NOTE | 2020-10-30 15:37 | NUR ---
NURSING NOTE PT WAS IN DINING ROOM THIS AM UPON ASSESSMENT AND MEDICATION ADMINISTRATION. PT A&O TO SELF ONLY. PT IS CONFUSED AND THINKS SHE IS HERE FOR FALLS. PT DENIES SI, DENIES HALLUCINATIONS. PT STATES SHE FEELS ANXIOUS. PT PHENYTOIN LEVEL ELEVATED. LAB ORDERED FOR TONIGHT FOR RE-EVALUATION. PT HAS NOT HAD ANY AGGRESSION OR BEHAVIORAL OUTBURSTS THUS FAR. WILL ELISE.
[2020-10-30 16:17] VITALS: BP 121/52
--- NOTE | 2020-10-30 21:05 | CONS ---
DATE OF CONSULTATION: 10/30/2020 REASON FOR CONSULTATION: Medical management. HISTORY OF PRESENT ILLNESS: The patient is an 85-year-old female patient who was transferred from [facility] where she was admitted initially with shortness of breath and there she was noted to be extremely agitated, aggressive, and disruptive at home where she lives with her daughter due to her memory deficit. She also has visual hallucination, seeing alligators all over the room, has been combative with her daughter at home, verbally abusive, anxious. She was having sleep and appetite changes, had failed outpatient psychiatric intervention resulting in referral to this unit. PAST MEDICAL HISTORY: Significant for dementia, Alzheimer, vascular within the context of her seizure disorder. She has been paranoid, delusional, having sleep and appetite changes and aggressive, disruptive behavior. She is known to have hypertension, seizure disorder, atrial fibrillation, and unsteady gait and multiple falls. PAST SURGICAL HISTORY: Significant for left hip fracture, status post open reduction and internal fixation and bilateral cataract extraction. ALLERGIES: She has no known drug allergies. FAMILY HISTORY: She has one brother who is still alive. Her sister of breast cancer, metastasis to the brain. Father of cerebrovascular accident and mother of myocardial infarction. SOCIAL HISTORY: She is and remarried. Her second has and currently lives with her youngest daughter. Her oldest daughter also has . She used to be a heavy smoker, smoked 2 packs a day, quit about 30 years ago. She does not drink alcohol. 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 MEDICATIONS: She is currently on following medications: She is on lactobacillus rhamnosus 1 capsule twice a day, oxybutynin chloride 5 mg daily, metoprolol succinate 50 mg once a day, lisinopril 20 mg once a day. She is also on Zithromax to finish the course of treatment as well as cefdinir 300 mg twice a day. She is also on folic acid 1 mg once a day, phenytoin sodium 300 mg at bedtime, trazodone 50 mg at bedtime, and hydrochlorothiazide 12.5 mg once a day. PHYSICAL EXAMINATION: GENERAL: On examining her, she looked somewhat pale, but no jaundice, cyanosis or thyromegaly. No jugular venous distention or limb edema. VITAL SIGNS: Her heart rate was 80, blood pressure was 104/67, temperature was 97.7, respiratory rate was 16, and oxygen saturation was 93%. HEAD, EYES, EARS, NOSE AND THROAT: Normocephalic, atraumatic. NECK: Supple. HEART: Showed normal first and second heart sounds. No gallop, rub or murmur. CHEST: Clear to auscultation. No crepitation or rhonchi. ABDOMEN: Distended, soft, nontender. NEUROLOGIC: She is demented, but without any obvious lateralizing sign. All her cranial nerves intact. EXTREMITIES: She moves extremities without difficulty. She ambulates with a walker. LABORATORY DATA: Showed a white cell count 5300, hemoglobin 12, hematocrit 36, MCV 98 and platelet count 230,000. Her chemistry showed that her serum sodium was 135, potassium 4.3, chloride 101, bicarbonate 29, anion gap of 5, BUN 15, creatinine 0.7, estimated GFR was 79 mL per minute. Her glucose was 88, calcium was 9.2, magnesium 2.1. Total bilirubin, AST, ALT, alkaline phosphatase were normal. Her total protein is 6.9 and albumin 3.6. Her white cell count was 5300, hemoglobin 12, hematocrit 36, MCV 98 and platelet count 230,000. D-dimer was 0.82 and her treponema pallidum antibodies were nonreactive. Her phenytoin was high at 30.8, however, it transpired that this was done immediately before her next dose at nighttime and in fact was done in the morning and therefore, we are going to repeat in fact tonight, at around 8:30, prior to her next dose to check her trough level to decide whether it is within therapeutic range. Her hemoglobin A1c was 5.6%. Her serum iron, TIBC and iron saturation are all consistent with a replete iron stores. Her serum triglycerides were 50, total cholesterol 191, LDL was 99, VLDL was 10, HDL was 82 and the ratio was 2. Her vitamin B12 was 347 and 25-hydroxy vitamin D was 10. Her TSH, total T4, and total T3 are all normal. Therefore, the patient was started on cholecalciferol 50,000 International units once a week. We will repeat her phenytoin trough level tonight at 8:30, 30 minutes prior to her next dose and we will decide the further management accordingly. Thank you, Dr. Mcpherson for allowing me to participate in the care of this patient. CHRISTO CASTILLO MD DR: ROBERT/kenia JOB#: [id number] / [id number]
[2020-10-30] MEDS: PANTOPRAZOLE 40 MG TABLET. PO SCH (21:18)
[2020-10-30] MEDS: FOLIC ACID 1 MG TABLET PO SCH (21:18)
[2020-10-30] MEDS: PHENYTOIN SODIUM EXTENDED 100 MG CAPSULE PO SCH (21:19)
--- NOTE | 2020-10-30 21:50 | PDOC ---
Exam Note: Mario Note: Please also refer to the separate dictated note~for this date of service dictated separately.~Patient seen individually. Discussed the patient with Nursing staff reviewed the chart.~Reviewed interim history and current functioning. Reviewed vital signs,~Labs/ Radiology~and current medications noted below. Continue current treatment with the changes noted in the dictated addendum note Assessment: Vital Signs/I&O: Vital Signs Date Time Temp Pulse Resp B/P (MAP) Pulse Ox O2 Delivery O2 Flow Rate FiO2 10/30/20 16:17 97.9 95 18 121/52 (75) 91 I & O 10/29/20 10/29/20 10/30/20 15:00 23:00 07:00 Intake Total 720 ml 600 ml Balance 720 ml 600 ml Current Medications: Meds: Current Medications Medications (Trade) Dose Ordered Sig/Deepthi Route PRN Reason Start Time Stop Time Status Last Admin Dose Admin Azithromycin (Zithromax) 250 mg DAILY PO 10/29/20 09:00 10/31/20 09:01 10/30/20 07:29 Cefdinir (Omnicef) 300 mg BID PO 10/28/20 21:00 11/04/20 20:59 10/30/20 21:18 Levetiracetam (Keppra) 500 mg BID PO 10/28/20 21:00 10/30/20 21:18 Lisinopril (Prinivil) 20 mg DAILY PO 10/29/20 09:00 10/29/20 09:23 Metoprolol Succinate (Toprol Xl) 50 mg DAILY PO 10/29/20 09:00 10/30/20 07:30 Phenytoin Sodium (Dilantin) 300 mg QHS PO 10/28/20 21:00 10/30/20 21:19 Folic Acid (Folic Acid) 1 mg HS PO 10/28/20 21:00 10/30/20 21:18 Hydrochlorothiazide (Microzide) 12.5 mg PRN DAILY PRN PO HTN 10/28/20 20:00 Pantoprazole Sodium (Protonix) 40 mg QHS PO 10/28/20 21:00 10/30/20 21:18 Oxybutynin Chloride (Ditropan) 5 mg DAILY PO 10/29/20 09:00 10/30/20 07:30 Trazodone HCl (Desyrel) 50 mg PRN QHS PRN PO INSOMNIA, MAY REPEAT X1 10/28/20 20:30 Acetaminophen (Tylenol) 650 mg PRN Q6HRS PRN PO MILD PAIN / TEMP > 100.3'F 10/28/20 21:00 Multi-Ingredient Ointment (Analgesic [place]) 1 juan c PRN QID PRN TP MUSCLE PAIN 10/28/20 21:00 Al Hydroxide/Mg Hydroxide (Mylanta Plus Xs) 15 ml PRN AFTMEALHC PRN PO DYSPEPSIA 10/28/20 21:00 Magnesium Hydroxide (Milk Of Magnesia) 2,400 mg PRN QHS PRN PO CONSTIPATION 10/28/20 21:00 Lactobacillus Rhamnosus (Culturelle) 1 cap BID PO 10/30/20 09:00 10/30/20 21:18 Lactobacillus Rhamnosus (Culturelle) 1 cap BID PO 10/30/20 09:00 Cancel Vitamin D (Vitamin D3) 50,000 unit WEEKLY PO 11/06/20 09:00 Sertraline HCl (Zoloft) 25 mg DAILY PO 10/31/20 09:00 Current Medications Medications (Trade) Dose Ordered Sig/Deepthi Route PRN Reason Start Time Stop Time Status Last Admin Dose Admin Lactobacillus Rhamnosus (Culturelle) 1 cap BID PO 10/30/20 09:00 10/30/20 21:18 I have reviewed the current psychotropics carefully including drug interactions. Risk benefit ratio favors no change other than as noted in my dictated progress note. 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
--- NOTE | 2020-10-31 00:03 | NUR ---
Patient was calm and pleasant. She asked to go to bed at around 2030 because she stated she was tired. Patient medication compliant and cooperative with staff. No adverse behaviors noted at this time.
[2020-10-31 06:21] LABS: PHENY 26.3 mcg/mL (10.0-20.0)
[2020-10-31 06:23] VITALS: BP 119/71
[2020-10-31] MEDS: levETIRAcetam 500 MG TABLET PO SCH (07:24)
[2020-10-31] MEDS: CEFDINIR 300 MG CAPSULE PO SCH (07:24)
[2020-10-31] MEDS: LACTOBACILLUS RHAMNOSUS GG 1 CAPSULE. PO SCH (07:24)
[2020-10-31] MEDS: OXYBUTYNIN CHLORIDE 5 MG TABLET PO SCH (07:24)
[2020-10-31] MEDS: AZITHROMYCIN 250 MG TABLET. PO SCH (07:24)
[2020-10-31] MEDS: LISINOPRIL 20 MG TABLET PO SCH (07:24)
[2020-10-31] MEDS: METOPROLOL SUCC 24HR ER 50 MG TAB.ER.24H. PO SCH (07:25)
--- NOTE | 2020-10-31 07:28 | PDOC ---
Exam Note: Mario Note: This note is a late entry for 10/30/2020 covers elements not covered in my initial note. Subjective: The patient was seen individually in the evening of 10/30/2020 with Neeru Rai RN, discussed and reviewed the chart. The patient just slept 7- 1/2 hours previous night. Overall she has been withdrawn, anxious but not agitated or aggressive. Dilantin level is 30 but this could be falsely elevated because it was taken shortly after she had just had the Dilantin and we will repeat the level this evening for accuracy. Review of Systems: Ambulation impaired with walker. No CV, , pulmonary, eye, ENT system symptoms on review. Mental Status Exam: The patient is oriented to herself and situation. The patient was in the group room which is where I met with her. Eye contact is poor. Psychomotor activity she remains somewhat anxious, restless. Speech coherent, low in volume. Abstraction is fair. Computation impaired. Mood and affect somewhat anxious, labile. No suicidal or homicidal ideation. Laboratory Data: Reviewed. Impression: Major neurocognitive disorder Alzheimer vascular with delusion, depression, behavioral disturbance. Anxiety disorder unspecified. Impulse control disorder unspecified. Plan: Continue current psychotropics. Adjust Dilantin if level is still somewhat elevated. Maintain Keppra, trazodone. Start Zoloft 25 mg a day for mood and anxiety symptoms. Make further adjustments as clinically indicated. Assessment: Vital Signs/I&O: Vital Signs Date Time Temp Pulse Resp B/P (MAP) Pulse Ox O2 Delivery O2 Flow Rate FiO2 10/31/20 07:25 69 119/71 10/31/20 06:23 98.4 16 95 I & O 10/30/20 10/30/20 10/31/20 15:00 23:00 07:00 Intake Total 840 ml 360 ml Balance 840 ml 360 ml Labs: Laboratory Tests Test 10/31/20 05:45 Phenytoin (Dilantin) Level 26.3 mcg/mL (10.0-20.0) H Phenytoin Last Dose Date 10/29/20 Phenytoin Last Dose Time 2100 Current Medications: Meds: Laboratory Tests Test 10/31/20 05:45 Phenytoin (Dilantin) Level 26.3 mcg/mL Phenytoin Last Dose Date 10/29/20 Phenytoin Last Dose Time 2100 Current Medications Medications (Trade) Dose Ordered Sig/Deepthi Route PRN Reason Start Time Stop Time Status Last Admin Dose Admin Azithromycin (Zithromax) 250 mg DAILY PO 10/29/20 09:00 10/31/20 09:01 10/31/20 07:24 Cefdinir (Omnicef) 300 mg BID PO 10/28/20 21:00 11/04/20 20:59 10/31/20 07:24 Levetiracetam (Keppra) 500 mg BID PO 10/28/20 21:00 10/31/20 07:24 Lisinopril (Prinivil) 20 mg DAILY PO 10/29/20 09:00 10/31/20 07:24 Metoprolol Succinate (Toprol Xl) 50 mg DAILY PO 10/29/20 09:00 10/31/20 07:25 Phenytoin Sodium (Dilantin) 300 mg QHS PO 10/28/20 21:00 10/30/20 21:19 Folic Acid (Folic Acid) 1 mg HS PO 10/28/20 21:00 10/30/20 21:18 Hydrochlorothiazide (Microzide) 12.5 mg PRN DAILY PRN PO HTN 10/28/20 20:00 Pantoprazole Sodium (Protonix) 40 mg QHS PO 10/28/20 21:00 10/30/20 21:18 Oxybutynin Chloride (Ditropan) 5 mg DAILY PO 10/29/20 09:00 10/31/20 07:24 Trazodone HCl (Desyrel) 50 mg PRN QHS PRN PO INSOMNIA, MAY REPEAT X1 10/28/20 20:30 Acetaminophen (Tylenol) 650 mg PRN Q6HRS PRN PO MILD PAIN / TEMP > 100.3'F 10/28/20 21:00 Multi-Ingredient Ointment (Analgesic Bath) 1 juan c PRN QID PRN TP MUSCLE PAIN 10/28/20 21:00 Al Hydroxide/Mg Hydroxide (Mylanta Plus Xs) 15 ml PRN AFTMEALHC PRN PO DYSPEPSIA 10/28/20 21:00 Magnesium Hydroxide (Milk Of Magnesia) 2,400 mg PRN QHS PRN PO CONSTIPATION 10/28/20 21:00 Lactobacillus Rhamnosus (Culturelle) 1 cap BID PO 10/30/20 09:00 10/31/20 07:24 Lactobacillus Rhamnosus (Culturelle) 1 cap BID PO 10/30/20 09:00 Cancel Vitamin D (Vitamin D3) 50,000 unit WEEKLY PO 11/06/20 09:00 Sertraline HCl (Zoloft) 25 mg DAILY PO 10/31/20 09:00 Current Medications Medications (Trade) Dose Ordered Sig/Deepthi Route PRN Reason Start Time Stop Time Status Last Admin Dose Admin Lactobacillus Rhamnosus (Culturelle) 1 cap BID PO 10/30/20 09:00 10/31/20 07:24 I have reviewed the current psychotropics carefully including drug interactions. Risk benefit ratio favors no change other than as noted in my dictated progress note. 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
[2020-10-31] MEDS ORDERED: SERTRALINE 25 MG TABLET. PO SCH (09:00)
--- NOTE | 2020-10-31 12:00 | NUR ---
BHASKAR met with pt dtr, Yuliya and the circulation sales representative with [employer]. [employer] was informing Yuliya that pt would not qualify as she has over $2K worth of assets. All parties agreed that the best plan is to grey out pt life insurance plan and use that money, as it is also considered an asset, to pay for pt placement. Once pt gets <$2k in her account, she would qualify for Medicaid. Pt dtr was then escorted into the group room for a 30 minute visit with pt.
--- NOTE | 2020-10-31 13:00 | NUR ---
NURSING NOTE PT IN DINING ROOM THIS AM UPON ASSESSMENT AND MEDICATION ADMINISTRATION. PT FAMILY MEMBER BROUGHT PT SHOES TO HELP PT WALK AROUND UNIT. PT HAD VISIT TODAY WITH HER FAMILY MEMBER. PT CALM AND COOPERATIVE WITH CARES. PT INDEPENDENT WITH MEALS, SET UP ONLY. PT DENIED ANY PAIN AND WAS SITTING OUTSIDE THIS AM FOR A BIT. WILL ELISE.
--- NOTE | 2020-10-31 14:18 | NUR ---
SW completed insurance update for pt continued stay. Based off the notes, pt is not displaying any physically or verbally aggressive behaviors, is compliant with cares and appears to be a bit withdrawn and anxious. Pt was started on Zoloft 25mg daily, starting this morning. No hallucinations have been noted. Pt is eating 50-100% of meals and sleeping on average 7 hours per night. SW discussed pt family request for placement as they feel they can no longer care for pt in their home. One daughter works and the other daughter was recently put on oxygen for health reasons. Pt did have private duty in the home, who hotlined the family for safety concerns. As it stands per [employer], the case will go peer to peer. Oly will call BHASKAR with the final result (e.g. approval or denial for continued stay).
--- NOTE | 2020-10-31 14:44 | NUR ---
BHASKAR contacted Yamila, pt dtr/DPOA, to inform her about the insurance review going peer to peer. BHASKAR discussed with Yamila what that meant and is waiting to hear back from the reinsurance clerk on whether or not pt will need to discharge. Yamila reports that they are looking for a bigger house to move into (2 bdrm versus 1 bdrm) in hopes that pt can have a room to herself versus sleeping on the couch. Yamila has requested that pt have HH services to aid in pt care until they can figure out the financial situation and work on getting pt placed. BHASKAR will make sure to contact BHASKAR when possible re: insurance decision.
--- NOTE | 2020-10-31 15:03 | NUR ---
SW received call from Oly, the [facility] food service sales representatives who informed SW that pt stay would be denied. The hospital has a right to appeal pt stay; which last day covered was yesterday 10/30/20. Discharge summary would need to be faxed to once completed.
--- NOTE | 2020-10-31 15:37 | NUR ---
BHASKAR contacted pt dtr, Yamila to let her know that [facility] has denied pt case for continued stay. The last covered day from insurance was yesterday; therefore, they will be receiving a bill from the hospital for pt care today. Pt will contact her sister to see if she is still around to pick pt up. BHASKAR informed pt sister that the nursing staff would have to continue working on getting pt discharge packet and paperwork together so there was no major marquez. Yamila figured pt sister would be at the hospital within an hour but would call to let BHASKAR know.
--- NOTE | 2020-10-31 15:40 | NUR ---
BHASKAR received call back from Yamila who reports that pt sister will plan to be at the hospital in 15 minutes. BHASKAR requested that pt sister look closer towards 430 or even closer to 5:00 for package pick up as nursing has to prepare the discharge packet and BHASKAR is still working on setting up services. Pt sister would have to wait for a while before it all would be completed. Yamila will let Yuliya know to give at least another 45 minutes to an hour before picking pt up.
[2020-10-31 15:47] VITALS: BP 86/47
[2020-10-31] MEDS ORDERED: CEFD300C PO (16:03)
--- NOTE | 2020-10-31 16:08 | NUR ---
[facility] Social Work Discharge Planning Form Patient Name COLBY OBREGON Admit Date: 28 October 2020 DISCHARGE PLAN Discharge Destination: Home with daughter, Yamila Colon Care Assessment: NA Level II Assessment: NA Transportation: Pt percyrYuliya will pick pt up around [phone] Special Instructions/Notes: Please fax discharge orders, discharge medications and discharge summary to the numbers listed below. DISCHARGE TO HOME: Address: [address] [place] [id number] Responsible Republican: Yuliya Collins Pharmacy: [facility] Contact Information: [address] [place] [address] Psychiatrist/Mental Health Follow Up: [facility] Contact Information: [address] [place] [address] Note: they do walk-in appointments only Thursday thru from 9AM until 2PM. They can set up case management and psychiatric services Primary Care Follow Up: Tanesha Marquez Contact Information: [address], [place] [address] Appointment: 11/05/20 @ 8:00AM Home Health: [facility] Contact Information: [facility] [facility]; [place] [address] Appointment: Will call to schedule visit within 48 hours of admission
[2020-10-31] MEDS ORDERED: LEVE500T56 PO (16:09)
[2020-10-31] MEDS ORDERED: SERT25TA PO (16:09)
[2020-10-31] MEDS ORDERED: TRAZ-120 PO (16:12)
[2020-10-31] MEDS ORDERED: LACT1CAP19 PO (16:15)
[2020-10-31] MEDS ORDERED: folic acid PO (16:18)
[2020-10-31] MEDS ORDERED: CHOL500021 PO (16:21)
--- NOTE | 2020-10-31 16:59 | NUR ---
Transition Record was faxed to follow-up provider with the following elements: Reason for admission, procedures, tests, principal diagnosis, pending studies, patient instructions, 09/02 contact information for unit, phone number to obtain pending test results, plan for follow-up care, physician follow-up, advanced directive information, and medication list with dose, duration and instructions. This information was included in the following documents: History and physical, lab results, study results, progress notes, social work planning form, DC instruction form, patient visit summary, and medication reconciliation form. Date & time record faxed: YES 10/31 Record faxed to: [facility] HEALTH Record discussed with/ report given to: PT DAUGHTER
--- NOTE | 2020-10-31 22:08 | PDOC ---
Exam Note: Mario Note: Please also refer to the separate dictated note~for this date of service dictated separately.~Patient seen individually. Discussed the patient with Nursing staff reviewed the chart.~Reviewed interim history and current functioning. Reviewed vital signs,~Labs/ Radiology~and current medications noted below. Continue current treatment with the changes noted in the dictated addendum note Assessment: Vital Signs/I&O: Vital Signs Date Time Temp Pulse Resp B/P (MAP) Pulse Ox O2 Delivery O2 Flow Rate FiO2 10/31/20 15:47 98.2 68 18 86/47 (60) 97 I & O 10/30/20 10/30/20 10/31/20 15:00 23:00 07:00 Intake Total 840 ml 360 ml Balance 840 ml 360 ml Labs: Laboratory Tests Test 10/31/20 05:45 Phenytoin (Dilantin) Level 26.3 mcg/mL (10.0-20.0) H Phenytoin Last Dose Date 10/29/20 Phenytoin Last Dose Time 2100 Current Medications: Meds: Laboratory Tests Test 10/31/20 05:45 Phenytoin (Dilantin) Level 26.3 mcg/mL Phenytoin Last Dose Date 10/29/20 Phenytoin Last Dose Time 2100 Current Medications Medications (Trade) Dose Ordered Sig/Deepthi Route PRN Reason Start Time Stop Time Status Last Admin Dose Admin Azithromycin (Zithromax) 250 mg DAILY PO 10/29/20 09:00 10/31/20 09:01 DC 10/31/20 07:24 Cefdinir (Omnicef) 300 mg BID PO 10/28/20 21:00 10/31/20 17:01 DC 10/31/20 07:24 Levetiracetam (Keppra) 500 mg BID PO 10/28/20 21:00 10/31/20 17:01 DC 10/31/20 07:24 Lisinopril (Prinivil) 20 mg DAILY PO 10/29/20 09:00 10/31/20 17:01 DC 10/31/20 07:24 Metoprolol Succinate (Toprol Xl) 50 mg DAILY PO 10/29/20 09:00 10/31/20 17:01 DC 10/31/20 07:25 Phenytoin Sodium (Dilantin) 300 mg QHS PO 10/28/20 21:00 10/31/20 17:01 DC 10/30/20 21:19 Folic Acid (Folic Acid) 1 mg HS PO 10/28/20 21:00 10/31/20 17:01 DC 10/30/20 21:18 Hydrochlorothiazide (Microzide) 12.5 mg PRN DAILY PRN PO HTN 10/28/20 20:00 10/31/20 17:01 DC Pantoprazole Sodium (Protonix) 40 mg QHS PO 10/28/20 21:00 10/31/20 17:01 DC 10/30/20 21:18 Oxybutynin Chloride (Ditropan) 5 mg DAILY PO 10/29/20 09:00 10/31/20 17:01 DC 10/31/20 07:24 Trazodone HCl (Desyrel) 50 mg PRN QHS PRN PO INSOMNIA, MAY REPEAT X1 10/28/20 20:30 10/31/20 17:01 DC Acetaminophen (Tylenol) 650 mg PRN Q6HRS PRN PO MILD PAIN / TEMP > 100.3'F 10/28/20 21:00 10/31/20 17:01 DC Multi-Ingredient Ointment (Analgesic [place]) 1 juan c PRN QID PRN TP MUSCLE PAIN 10/28/20 21:00 10/31/20 17:01 DC Al Hydroxide/Mg Hydroxide (Mylanta Plus Xs) 15 ml PRN AFTMEALHC PRN PO DYSPEPSIA 10/28/20 21:00 10/31/20 17:01 DC Magnesium Hydroxide (Milk Of Magnesia) 2,400 mg PRN QHS PRN PO CONSTIPATION 10/28/20 21:00 10/31/20 17:01 DC Lactobacillus Rhamnosus (Culturelle) 1 cap BID PO 10/30/20 09:00 10/31/20 17:01 DC 10/31/20 07:24 Lactobacillus Rhamnosus (Culturelle) 1 cap BID PO 10/30/20 09:00 Cancel Vitamin D (Vitamin D3) 50,000 unit WEEKLY PO 11/06/20 09:00 10/31/20 17:01 DC Sertraline HCl (Zoloft) 25 mg DAILY PO 10/31/20 09:00 10/31/20 17:01 DC 10/31/20 07:54 Current Medications Medications (Trade) Dose Ordered Sig/Deepthi Route PRN Reason Start Time Stop Time Status Last Admin Dose Admin Sertraline HCl (Zoloft) 25 mg DAILY PO 10/31/20 09:00 10/31/20 17:01 DC 10/31/20 07:54 I have reviewed the current psychotropics carefully including drug interactions. Risk benefit ratio favors no change other than as noted in my dictated progress note. 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
--- NOTE | 2020-10-31 22:29 | DS ---
DATE OF DISCHARGE: 10/31/2020 DISCHARGE SUMMARY/PSYCHIATRIC PROGRESS NOTE This note covers elements not covered in my initial note 10/31/2020. REASON FOR ADMISSION: Please refer to the admission history for details. Briefly, the patient is an 85-year-old female transferred to us from Medical/Surgical floor at [facility] where she was admitted for COVID screening to be negative before she transitioned to our unit. She was living at home with her daughter, getting progressively confused, demented, paranoid, refusing meals, sundowning, aggressive. She is having delusions, thinking there were alligators in her room. She was combative with her daughter, verbally abusive, anxious. She had failed outpatient psychiatric interventions resulting in this referral. SIGNIFICANT FINDINGS AND CLINICAL COURSE: Following admission, the patient was seen daily individually by myself from a psychiatric standpoint, medical followup with Dr. Betancourt/Dr. Layton. The patient remained quite withdrawn, anxious, somewhat depressed. She was started on Zoloft 25 mg a day, maintained on Dilantin 300 mg at bedtime for his seizures along with Keppra 500 mg b.i.d. and trazodone p.r.n. for insomnia. No clear delusions were noted on the unit and at times the patient appeared more coherent than other times. The patient's health insurance deemed she did not meet inpatient criteria and I discussed the patient with Dr. Lim, psychiatrist at [facility] on 10/31/2020. No suicidal or homicidal ideation were noted and the patient was discharged back home with her daughter on 10/31/2020. REVIEW OF SYSTEMS: Prior to discharge, no CV, , pulmonary, eye system symptoms on review. MENTAL STATUS EXAM: Oriented to herself, at times situation. Speech moderate latency, often responses monosyllabic. Abstraction fair, computation impaired, language function intact, attention span short. Mood and affect withdrawn. LABORATORY DATA: Reviewed. FINAL DIAGNOSES: Major neurocognitive disorder, Alzheimer, vascular with delusion, depression, behavioral disturbance; anxiety disorder, unspecified; impulse control disorder, unspecified. Rest unchanged from admission. DISCHARGE MEDICATIONS: Please refer to the MRAD. DISCHARGE INSTRUCTIONS: Outpatient psychiatric and medical followup is arranged by social service staff prior to discharge. Time for discharge day management greater than 30 minutes. MAN Deloris AYALA MD DR: Lizzy JOB#: [id number] / [id number]
[2020-11-06] MEDS ORDERED: CHOLECALCIFEROL (VITAMIN D3) 50,000 UNIT CAPSULE PO SCH (09:00)
== END 2020-10-31 17:00 | disposition home health service (06) | DRG 57 ==
LOC: GEROPSY 19:14
PROVIDERS: ADMIT Psychiatry & Neurology Psychiatry; ATTEND Psychiatry & Neurology Psychiatry
DX: G30.9 Alzheimer's disease, unspecified (principal); F05 Delirium due to known physiological condition; F02.81 Dementia in other diseases classified elsewhere, unspecified severity, with behavioral disturbance; F01.51 Vascular dementia, unspecified severity, with behavioral disturbance; G40.909 Epilepsy, unspecified, not intractable, without status epilepticus; I10 Essential (primary) hypertension; Z66 Do not resuscitate; I48.91 Unspecified atrial fibrillation; F63.9 Impulse disorder, unspecified; F41.9 Anxiety disorder, unspecified; F32.9 Major depressive disorder, single episode, unspecified; R29.6 Repeated falls; R26.81 Unsteadiness on feet; I67.2 Cerebral atherosclerosis; Z79.899 Other long term (current) drug therapy; Z80.3 Family history of malignant neoplasm of breast; Z82.49 Family history of ischemic heart disease and other diseases of the circulatory system; Z82.3 Family history of stroke; Z80.8 Family history of malignant neoplasm of other organs or systems; Z98.41 Cataract extraction status, right eye; Z98.42 Cataract extraction status, left eye; Z87.891 Personal history of nicotine dependence; Z87.01 Personal history of pneumonia (recurrent)
CPT/HCPCS: 36415; 80053; 80061; 80185; 82306; 82607; 83036; 83540; 83550; 83735; 84436; 84443; 84480; 85025; 85379; 86592; 97110; 97116; 97530; 97535

== ENCOUNTER 2021-01-30 11:15 | Emergency (ER) | payer MEDICARE ==
[~2021-01-30] VITALS: Ht 154.9 cm; Wt 50.0 kg
[~2021-01-30 11:15] MED LIST changes: +CHOL500021 PO; +LACT1CAP19 PO; +SERT25TA PO; +TRAZ-120 PO; +folic acid PO
--- NOTE | 2021-01-30 13:00 | RAD ---
EXAM: Head and cervical spine CT without contrast. HISTORY: Fall. TECHNIQUE: Computed tomographic images of the head and cervical spine were obtained without contrast. *One or more of the following individualized dose reduction techniques were utilized for this examina tion: 1. Automated exposure control. 2. Adjustment of the mA and/or kV according to patient size. 3. Use of iterative reconstruction technique. COMPARISON: 10/22/2020. FINDINGS: Head: There is a stable focus of calcification within the right vides radiata. There is no acute or subacute hemorrhage. There is no mass effect or midline shift. There is cerebral volume loss. There a re extensive white matter changes due to chronic small vessel disease. There is evidence of right kerrie s surgery. There is paranasal sinus mucosal thickening. 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 The mastoid air cells are clear. There is no suspicious calvarial lesion. Cervical spine: There is mild degenerative listhesis at multiple levels. There is chronic mild decrea sed vertebral body height at C5 and C6. There is degenerative endplate remodeling with disc space dante rowing, osteophytosis and Schmorl's node formation primarily at C4-C5 and C5-C6. There is a large pos terior central disc protrusion contributing to central canal stenosis at C3-C4. There is multilevel f acet arthropathy. There is no acute fracture or suspicious osseous lesion. The combination of degenerative changes results in mild central canal stenosis at C2-C3, mild left fo raminal and moderate central canal stenosis at C3-C4, severe right and [id number] left foramina l stenosis at C4-C5, moderate right and mild left foraminal stenosis at C5-C6 and mild left foraminal stenosis at C6-C7. There is a heterogeneous enlarged thyroid containing multiple nodules. There is no pneumothorax. Ther e is dense calcified atherosclerotic plaque involving the carotid bifurcations. IMPRESSION: 1. No acute intracranial finding or evidence of acute cervical spine trauma. 2. Extensive bilateral cerebral white matter changes, likely due to chronic small vessel disease. 3. Cerebral atrophy. 4. Stable focus of calcification within the right centrum semiovale. 5. Multilevel degenerative change involving the cervical spine, resulting in stenosis at the aforemen tioned levels. 6. Chronic decreased vertebral body height at C5 and C6. Electronically signed by: Tiffany Philip MD (01/30/2021 12:57 PM) [id number]
--- NOTE | 2021-01-30 13:09 | PHYS DOC ---
Past History Past Medical History: CHF, CVA, Dementia, Heart Disease, Seizure, UTI Additional Past Medical Histor: dementia Past Surgical History: No Surgical History Smoking: Quit Greater Than 1 Year Alcohol Use: None Drug Use: None Adult General Chief Complaint Chief Complaint: MECHANICAL FALL [facility] HPI Patient is an 85-year-old female with past medical history of dementia who presents to the emergency room after having a fall at home. Patient fell out of a chair and hit her head. She does not lose consciousness. She denies any complaints. She did not have a syncopal episode. She states she lost her balance. Review of Systems Review of Systems Complete ROS is negative unless otherwise documented in HPI Allergies Allergies Allergies Coded Allergies Type Severity Reaction Last Updated Verified No Known Drug Allergies 10/25/20 No Physical Exam Physical Exam General: Awake, alert, NAD. Well Nourished, well hydrated. Cooperative HEENT: Hematoma to the right scalp with abrasion, EOMI, PERRL, airway patent, moist oral mucosa Neck: Supple, trachea midline Respiratory: CTA bilaterally, normal effort, no wheezing/crackles CV: RRR, no murmur, cap refill <2 GI: Soft, nondistended, nontender, no masses MSK: No obvious deformities Skin: Warm, dry, intact Neuro: A&O x3, speech NL, sensory and motor grossly intact, no focal deficits Psych: Normal affect, normal mood, not suicidal or homicidal Current Patient Data Vital Signs Vital Signs Date Time Temp Pulse Resp B/P (MAP) Pulse Ox O2 Delivery O2 Flow Rate FiO2 01/30/21 11:26 97.8 90 18 102/55 97 Room Air EKG EKG [] Radiology/Procedures Radiology/Procedures [] Heart Score C/O Chest Pain: N/A Risk Factors: Risk Factors: DM, Current or recent (<one month) smoker, HTN, HLP, family history of CAD, obesity. Risk Scores: Risk Factors: DM, Current or recent (<one month) smoker, HTN, HLP, family history of CAD, obesity. Course & Med Decision Making Course & Med Decision Making Pertinent Labs and Imaging studies reviewed. (See chart for details) Patient is a 85yo elderly female who presents to the ED after a mechanical fall from chair. On exam, patient has a hematoma with abrasion. Due to patient's age and head trauma they cannot be ruled out with belarusian CT head rule and will need a CT head to evaluate for intracranial bleed and a CT cervical spine. No signs of major facial injuries and a CT maxillofacial is not needed at this time. Patient did not have any symptoms concerning for a presyncopal episode. They deny chest pain, palpitations, dizziness, headache, shortness of breath, recent bleeding, numbness/weakness in extremities or face. They do not need a syncope work up at this time. CT head is negative. Patient's test results and vitals while in the ED were fully reviewed and discussed with the patient. Patient is stable and at this time does not need admission to the hospital. We have discussed strict return precautions and the importance of following up with their Primary Care Physician. Patient stated understanding and was given an opportunity to ask any questions. Patient is in agreement with plan. Dragon Disclaimer Dragon Disclaimer This electronic medical record was generated, in whole or in part, using a voice recognition dictation system. Departure Departure: Impression: Primary Impression: Fall Additional Impression: Closed head injury Disposition: HOME / SELF CARE / HOMELESS Condition: STABLE Referrals: EVETTE BARRIOS MD (PCP) Patient Instructions: Head Injury, Adult Problem Qualifiers EFRA MERINO MD Jan 30, 2021 13:09
[2021-01-30 13:10] VITALS: BP 100/52
== END 2021-01-30 13:27 | disposition home or self-care (01) ==
LOC: ER 11:15
DX: S00.03XA Contusion of scalp, initial encounter (principal); Z86.73 Personal history of transient ischemic attack (TIA), and cerebral infarction without residual deficits; Z87.891 Personal history of nicotine dependence; W18.39XA Other fall on same level, initial encounter; Y93.89 Activity, other specified; Y92.89 Other specified places as the place of occurrence of the external cause; Y99.8 Other external cause status
CPT/HCPCS: 70450; 72125; 99284-25

== ENCOUNTER 2021-03-27 08:40 | Inpatient (IN) | payer MEDICARE ==
[~2021-03-27] VITALS: Ht 157.5 cm; Wt 48.0 kg
[2021-03-27] MEDS ORDERED: IPRATRPIUM/ALBUTEROL 0.5/2.5MG 3 ML NEBU. ONE (08:53)
--- NOTE | 2021-03-27 08:56 | PHYS DOC ---
Past History Past Medical History: CHF, CVA, Dementia, Heart Disease, Seizure, UTI Additional Past Medical Histor: dementia Past Surgical History: No Surgical History Smoking: Quit Greater Than 1 Year Alcohol Use: None Drug Use: None Adult General HPI HPI Patient is a 85-year-old female presenting via EMS for acute on chronic respiratory failure. Patient has known history of CHF, atrial fibrillation that is rate controlled and COPD. She is a former smoker and currently on 1 L oxygen via nasal cannula daily. Patient history somewhat limited due to Alzheimer's dementia. Daughter reports that patient has been short of breath for past 48 hours without any major change in health, known sick contact or recent travel. There has been increased wheezing and air hunger without fever or other concerning signs. Nonetheless, this morning patient had increased work of breathing prompting her to call EMS. On arrival, patient was found to be 82% on 1 L oxygen via nasal cannula. She was administered x1 DuoNeb treatment and transported to our facility for evaluation. Patient has not received any COVID- 19 vaccines. Denies any chest pain, ripping or tearing sensation in chest, chest pressure but does admit increased shortness of breath and wheezing only Review of Systems Review of Systems Fourteen body systems of review of systems have been reviewed. See HPI for pertinent positives and negative responses, other peralta all other systems are negative, non-pertinent or non-contributory Allergies Allergies Allergies Coded Allergies Type Severity Reaction Last Updated Verified No Known Drug Allergies 10/25/20 No Physical Exam Physical Exam Constitutional: Age-appropriate, appears tired with increased work of breathing HENT: Normocephalic, atraumatic, bilateral external ears normal, oropharynx dry with poor dentition, no oral exudates, nose normal. Eyes: PERRLA, EOMI, conjunctiva normal, no discharge. Neck: Normal range of motion, no tenderness, supple, no stridor. Cardiovascular: Heart rate regular, irregular rhythm, no murmurs rubs or gallops Lungs & Thorax: Acute respiratory distress, increased work of breathing with accessory muscle usage noted in neck and abdomen, there is rhonchi and diffuse wheezes bilaterally Abdomen: Bowel sounds normal, soft, no tenderness, no masses, no pulsatile masses. Nonsurgical abdomen, no peritoneal signs Skin: Warm, dry, no erythema, no rash. Back: No tenderness, no CVA tenderness. Extremities: No tenderness, no cyanosis, no clubbing, ROM intact, 2+ pitting edema to bilateral lower extremities Neurologic: Alert and oriented X 3, grossly normal motor & sensory function, no focal deficits noted. Psychologic: Affect normal, judgement normal, mood normal. Current Patient Data Vital Signs Vital Signs Date Time Temp Pulse Resp B/P (MAP) Pulse Ox O2 Delivery O2 Flow Rate FiO2 03/27/21 08:58 97.6 78 26 163/101 96 Nasal Cannula 3.0 Vital Signs Date Time Temp Pulse Resp B/P (MAP) Pulse Ox O2 Delivery O2 Flow Rate FiO2 03/27/21 09:06 96 Nasal Cannula 1.0 03/27/21 08:58 97.6 78 26 163/101 Lab Results Laboratory Tests Test 03/27/21 08:50 03/27/21 08:53 03/27/21 09:17 Bedside Venous pH 7.33 Bedside Venous pCO2 55 mmHg Bedside Venous pO2 41 mmHg Venous Blood HCO3 29 mmol/L POC Venous O2 Saturation (Aurelio) 72 % Bedside FiO2 32 White Blood Count 6.8 x10^3/uL Red Blood Count 3.58 x10^6/uL Hemoglobin 11.9 g/dL Hematocrit 35.7 % Mean Corpuscular Volume 100 fL Mean Corpuscular Hemoglobin 33 pg Mean Corpuscular Hemoglobin Concent 33 g/dL Red Cell Distribution Width 12.9 % Platelet Count 214 x10^3/uL Neutrophils (%) (Auto) 66 % Lymphocytes (%) (Auto) 22 % Monocytes (%) (Auto) 9 % Eosinophils (%) (Auto) 2 % Basophils (%) (Auto) 1 % Neutrophils # (Auto) 4.5 x10^3uL Lymphocytes # (Auto) 1.5 x10^3/uL Monocytes # (Auto) 0.6 x10^3/uL Eosinophils # (Auto) 0.1 x10^3/uL Basophils # (Auto) 0.1 x10^3/uL Sodium Level 128 mmol/L Potassium Level 4.6 mmol/L Chloride Level 94 mmol/L Carbon Dioxide Level 28 mmol/L Anion Gap 6 Blood Urea Nitrogen 9 mg/dL Creatinine 0.6 mg/dL Estimated GFR (Cockcroft-Gault) 95.2 Glucose Level 132 mg/dL Lactic Acid Level 1.1 mmol/L Calcium Level 9.0 mg/dL Troponin I Quantitative < 0.017 ng/mL SL-Ibr-F-Type Natriuretic Peptide 2918 pg/mL Influenza Type A (Rapid) Negative Influenza Type B (Rapid) Negative SARS-CoV-2 Antigen (Rapid) Negative Current Medications Medications (Trade) Dose Ordered Sig/Deepthi Route PRN Reason Start Time Stop Time Status Last Admin Dose Admin Albuterol/ Ipratropium (Duoneb) 3 ml 1X ONCE NEB 03/27/21 09:00 03/27/21 09:01 DC 03/27/21 09:06 Methylprednisolone Sodium Succinate (SOLU-Medrol 125MG VIAL) 125 mg 1X ONCE IV 03/27/21 09:00 03/27/21 09:01 DC 03/27/21 09:14 Albuterol/ Ipratropium (Duoneb) 3 ml STK-MED ONCE .ROUTE 03/27/21 08:53 03/27/21 08:53 DC Aspirin (Aspirin Chewable) 162 mg 1X ONCE PO 03/27/21 09:15 03/27/21 09:16 DC 03/27/21 09:15 EKG EKG EKG ordered and interpreted by myself at 0910 hrs. as atrial fibrillation with a ventricular rate of 83, unremarkable intervals, no axis deviation, no STEMI Radiology/Procedures Radiology/Procedures XR CHEST 1V History: Short of breath. Comparison: 10/25/2020 Technique: Portable AP radiograph of the chest. Findings: The lungs are hyperinflated. Diffusely increased interstitial markings. Patchy bibasilar opacities new from comparison. No pneumothorax stable cardiomegaly. Calcification of the aortic arch. No acute osseous abnormality. Impression: 1. Increased interstitial and pulmonary vascular markings with bibasilar opacities. Findings may represent CHF exacerbation small pleural effusions. Multifocal or atypical infectious process is not excluded. Electronically signed by: Leo Fong MD (03/27/2021 9:59 AM) [facility] Heart Score C/O Chest Pain: No HEART Score for Chest Pain: HEART Score for Chest Pain Response (Comments) Value History Moderately Suspicious 1 ECG Nonspecific Repolarizatio 1 Age > 65 2 Risk Factors >3 Risk Factors or Hx CAD 2 Total 6 Risk Factors: Risk Factors: DM, Current or recent (<one month) smoker, HTN, HLP, family history of CAD, obesity. Risk Scores: Risk Factors: DM, Current or recent (<one month) smoker, HTN, HLP, family history of CAD, obesity. Course & Med Decision Making Course & Med Decision Making Airway patent, in acute respiratory distress on arrival, IV access and vitals obtained concerning for hypoxia less than 90% on 1 L oxygen, tachypnea and tachycardia History limited, physical examination concerning for respiratory wheezing and fluid overload, comprehensive ER work-up nonconcerning for any emergent or surgical issues Further history elicited from daughter who lives with patient. She reports patient despite known history of Alzheimer's dementia has had episodes of fluctuating delirium for past 48 hours without trauma. Coupled with findings today I am concerned for underlying pneumonia. Patient is also clinically fluid overloaded based on lower extremity edema and chest x-ray findings. Home medications reviewed, she is not on any diuretics. 40 mg IV Lasix administered while in ER setting Patient does have oxygen at home but there is valid concern for safe discharge home as patient and family have low medical literacy. All in favor for hospital admission for continued inpatient medical management prior to departure safely home I contacted hospitalist and reviewed need for hospital admission, he agreed. I updated patient and daughter on proposed plan of care that included hospital admission and they were amenable. All questions and concerns addressed prior to Cleone's admission Critical Care Time This patient required critical care. Due to the fact that the patient required a significant amount of one on one physician - patient contact time, ordering and review of studies, arranging urgent treatment with development of a management plan, evaluation of patients response to treatment with frequent reassessments, and discussions with other providers this patient required 35 minutes of critical care time. Critical care time was indicated due to the inherent instability and/or potential for instability in this patient. The critical care time that is allocated to this patient is above and beyond any time spent on any other billable procedures performed on this patient. Dragon Disclaimer Dragon Disclaimer This electronic medical record was generated, in whole or in part, using a voice recognition dictation system. Departure Departure: Impression: Primary Impression: Acute and chronic respiratory failure Additional Impressions: Pneumonia Fluid overload Atrial fibrillation Dementia in Alzheimer's disease with depression Hyponatremia Disposition: ADMITTED INPATIENT Admitting Physician: Rahel Betancourt Condition: STABLE Referrals: EVETTE BARRIOS MD (PCP) Problem Qualifiers SHAAN BARRERA DO Mar 27, 2021 08:56
[2021-03-27] MEDS ORDERED: methylPREDNISolone SOD SUCC PF 125 MG/2 ML VIAL. IV ONE (09:00)
[2021-03-27] MEDS ORDERED: IPRATRPIUM/ALBUTEROL 0.5/2.5MG 3 ML NEBU. NEB ONE (09:00)
[2021-03-27] MEDS ORDERED: ASPIRIN CHEWABLE 81 MG TABLET. PO ONE (09:15)
[2021-03-27 09:31] LABS: BASO # 0.1 x10^3/uL (0.0-0.2); BASO % 1 % (0-3); EOS # 0.1 x10^3/uL (0.0-0.7); EOS % 2 % (0-3); HEMATOCRIT 35.7 % (36.0-47.0); HEMOGLOBIN 11.9 g/dL (12.0-15.5); LYMPH # 1.5 x10^3/uL (1.0-4.8); LYMPH % 22 % (24-48); MEAN CORPUSCULAR HEMOGLOBIN 33 pg (25-35); MEAN CORPUSCULAR HGB CONC 33 g/dL (31-37); MEAN CORPUSCULAR VOLUME 100 fL (79-100); MONO # 0.6 x10^3/uL (0.0-1.1); MONO % 9 % (0-9); NEUT # 4.5 x10^3uL (1.8-7.7); NEUT % 66 % (31-73); PLATELET COUNT 214 x10^3/uL (140-400); RED BLOOD COUNT 3.58 x10^6/uL (3.50-5.40); RED CELL DISTRIBUTION WIDTH 12.9 % (11.5-14.5); WHITE BLOOD COUNT 6.8 x10^3/uL (4.0-11.0)
[2021-03-27 09:41] LABS: CREATININE 0.6 mg/dL (0.6-1.0); GFR 95.2; POTASSIUM 4.6 mmol/L (3.5-5.1)
--- NOTE | 2021-03-27 10:01 | RAD ---
XR CHEST 1V History: Short of breath. Comparison: 10/25/2020 Technique: Portable AP radiograph of the chest. Findings: The lungs are hyperinflated. Diffusely increased interstitial markings. Patchy bibasilar opacities ne w from comparison. No pneumothorax stable cardiomegaly. Calcification of the aortic arch. No acute os seous abnormality. Impression: 1. Increased interstitial and pulmonary vascular markings with bibasilar opacities. Findings may rep resent CHF exacerbation small pleural effusions. Multifocal or atypical infectious process is not exc luded. Electronically signed by: Leo Fong MD (03/27/2021 9:59 AM) [facility]
[2021-03-27 10:09] LABS: INFLUENZA A PATIENT NEGATIVE (NEGATIVE); INFLUENZA B PATIENT NEGATIVE (NEGATIVE)
[2021-03-27] MEDS ORDERED: ACETAMINOPHEN 325 MG TABLET PO PRN (10:45)
[2021-03-27] MEDS ORDERED: NITROGLYCERIN SUBLINGUAL 0.4 MG BOTTLE OF 25. SL PRN (10:45)
[2021-03-27] MEDS ORDERED: cefTRIAXone IM 1 GM VIAL IM ONE (11:00)
[2021-03-27] MEDS ORDERED: AZITHROMYCIN 500 MG in IV NORMAL SALINE 250ML 250 ML IV ONE (11:00)
[2021-03-27] MEDS ORDERED: FUROSEMIDE 40 MG/4 ML VIAL IVP ONE (11:00)
[2021-03-27] MEDS ORDERED: IV NORMAL SALINE 250ML 250 ML ONE (11:05)
[2021-03-27] MEDS ORDERED: AZITHROMYCIN 500 MG VIAL. IV ONE (11:05)
[2021-03-27] MEDS ORDERED: IV NORMAL SALINE 50ML 50 ML ONE (11:11)
--- NOTE | 2021-03-27 13:02 | EKG ---
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
[2021-03-27] MEDS ORDERED: traZODone 50 MG TABLET. PO PRN (17:30)
[2021-03-27] MEDS: methylPREDNISolone SOD SUCC PF 40 MG/ML VIAL. IV SCH (18:01)
[2021-03-27 18:14] VITALS: BP 130/62
[2021-03-27] MEDS: IPRATRPIUM/ALBUTEROL 0.5/2.5MG 3 ML NEBU. NEB SCH (18:31)
--- NOTE | 2021-03-27 19:19 | HP ---
ADMIT DATE: 03/27/2021 HISTORY OF PRESENT ILLNESS: The patient is an 85-year-old female patient who presented to the Emergency Room of [facility] with a complaint of shortness of breath. She denied, however, any chest pain. Did complain of cough with scanty sputum. She also had fever. She lives with her daughter and was noted to be having increased work of breathing, prompting her to call EMS. On arrival, the patient was found to be hypoxic with oxygen saturation of 82% on 1 L of oxygen by nasal cannula. She was administered one DuoNeb treatment and transported to the emergency room. She has not received any COVID-19 vaccine. Denies any chest pain. Denies any swelling of the legs or hemoptysis. She was extensively investigated in the emergency room. Has had an EKG, which showed that she was in atrial fibrillation with a ventricular rate of 83 beats per minute with unremarkable intervals and no ST segment elevation. Her chest x-ray showed the lungs are hyperinflated, diffusely increased interstitial marking, patchy bibasilar opacities, ____ for comparison. No pneumothorax, stable cardiomegaly, calcification of the aortic arch, no acute osseous abnormality. Has had lab work, showed a white cell count is normal at 6.8, hemoglobin 12, hematocrit 36, MCV 100 and platelet count 214,000. Her serum sodium was 128, potassium 4.6, chloride 94, bicarbonate 28, anion gap of 6, BUN 9, creatinine 0.6. Estimated GFR was 95 mL per minute. Her glucose 132, calcium was 9. Beta natriuretic peptide was 2900. Her lactic acid was only 1.1. Her blood gas showed a pH of 7.33, a pCO2 of 55, pO2 of 41. The patient was treated with IV antibiotic in the form of ceftriaxone as well as Zithromax together with methylprednisolone and will be admitted with acute hypoxic respiratory failure and chronic obstructive pulmonary disease, pneumonia, fluid overload, atrial fibrillation with controlled heart rate, hyponatremia as well as dementia, Alzheimer disease. PAST MEDICAL HISTORY: Significant for hypertension, hyperlipidemia, seizure disorder, congestive heart failure, chronic obstructive pulmonary disease. PAST SURGICAL HISTORY: Significant for bilateral cataract extraction and left hip total arthroplasty. ALLERGIES: She has no known drug allergies. MEDICATIONS: She is currently on metoprolol succinate 50 mg once a day, lisinopril 20 mg once a day, phenytoin sodium 300 mg at bedtime, levetiracetam 500 mg twice a day, sertraline 25 mg daily, trazodone 50 mg p.o. at bedtime as needed, oxybutynin chloride 5 mg daily and folic acid 1 mg daily. FAMILY HISTORY: Noncontributory. SOCIAL HISTORY: She lives with her daughter. She is an ex-smoker, quit about 10 years ago. She had 3 daughters, one of them committed suicide. 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 She does not drink alcohol or use recreational drugs. REVIEW OF SYSTEMS: As per history of present illness. PHYSICAL EXAMINATION: GENERAL: When I saw her this afternoon, she was resting slightly propped up in bed, mildly tachypneic, but there is definitely no pallor, jaundice, cyanosis. No lymphadenopathy, no thyromegaly, no jugular venous distention, but mild bilateral lower limb edema. VITAL SIGNS: Her heart rate was 84, blood pressure is 164/55, temperature was 97.6, and respiratory rate was 22 and oxygen saturation was 96% on 1 liter of oxygen. HEAD, EYES, EARS, NOSE, AND THROAT: Normocephalic, atraumatic. NECK: Supple. HEART: Normal first and second heart sounds. No gallop or murmur. CHEST: Showed increased anteroposterior diameter with reduced chest expansion, reduced air entry, vesicular breath sounds, bilateral basal crepitation posteriorly. I could not appreciate ____ she has diffuse bilateral rhonchi. ABDOMEN: Scaphoid, soft, nontender. NEUROLOGIC: She is grossly intact. LABORATORY DATA: Her lab work showed a white cell count of 6800, hemoglobin 12, hematocrit 36, MCV 100 and platelet count of 214,000 with normal manual differential. Her serum sodium was 128, potassium 4.6, chloride 94, bicarbonate 28, anion gap of 6, BUN 9, creatinine 0.6. Estimated GFR was 95 mL per minute. Her glucose was 132. Lactic acid was 1.1, calcium was 9 and beta natriuretic peptide was ____. ASSESSMENT: The patient was admitted with diagnosis of acute on chronic hypoxic respiratory failure, chronic obstructive pulmonary disease, acute likely diastolic congestive heart failure. She is also known to have hypertension, seizure disorder, hyperlipidemia as well as dementia and hyponatremia. PLAN: I reconciled all her medications. We will continue with antibiotics, continue with IV Solu-Medrol and bronchodilator. Repeat all her lab works again tomorrow. MEE/TAYLOR DR: Mj TID: [id number]
[2021-03-27] MEDS: levETIRAcetam 500 MG TABLET PO SCH (21:21)
[2021-03-27] MEDS: FOLIC ACID 1 MG TABLET PO SCH (21:22)
[2021-03-27] MEDS: PHENYTOIN SODIUM EXTENDED 100 MG CAPSULE PO SCH (21:22)
[2021-03-27 22:07] VITALS: BP 113/59
--- NOTE | 2021-03-28 01:20 | NUR ---
Rec'd pt to Rm 107 in stable condition from ED; oriented to self only as per usual state for pt; VSS, Sats 94% on 1L via nasal canula, respirations even and unlabored; uses bedside commode with standby assist, unsteady gait; telemetry shows afib at 64 bpm without ectopy; airborne and contact precautions in place for PUI status pending PCR Covid result; bed alarm on for pt safety, siderails up x2.
[2021-03-28 01:35] VITALS: BP 151/63
[2021-03-28] MEDS: methylPREDNISolone SOD SUCC PF 40 MG/ML VIAL. IV SCH ×3 (02:15→17:17)
[2021-03-28] MEDS: IPRATRPIUM/ALBUTEROL 0.5/2.5MG 3 ML NEBU. NEB SCH ×4 (06:03→19:57)
[2021-03-28 06:10] VITALS: BP 131/64
[2021-03-28 07:40] LABS: BASO % 1 % (0-3); EOS % 1 % (0-3); HEMATOCRIT 34.2 % (36.0-47.0); HEMOGLOBIN 11.5 g/dL (12.0-15.5); LYMPH # 2.4 x10^3/uL (1.0-4.8); LYMPH % 36 % (24-48); MEAN CORPUSCULAR HEMOGLOBIN 34 pg (25-35); MEAN CORPUSCULAR HGB CONC 34 g/dL (31-37); MEAN CORPUSCULAR VOLUME 101 fL (79-100); MONO # 0.9 x10^3/uL (0.0-1.1); MONO % 14 % (0-9); NEUT # 3.2 x10^3uL (1.8-7.7); NEUT % 48 % (31-73); PLATELET COUNT 178 x10^3/uL (140-400); RED CELL DISTRIBUTION WIDTH 12.9 % (11.5-14.5); WHITE BLOOD COUNT 6.7 x10^3/uL (4.0-11.0)
[2021-03-28 07:50] LABS: ALBUMIN 3.2 g/dL (3.4-5.0); ALBUMIN/GLOBULIN RATIO 1.2 (1.0-1.7); CALCIUM 8.5 mg/dL (8.5-10.1); CREATININE 0.7 mg/dL (0.6-1.0); GFR 79.7; POTASSIUM 4.2 mmol/L (3.5-5.1); TOTAL BILIRUBIN 0.4 mg/dL (0.2-1.0); TOTAL PROTEIN 5.9 g/dL (6.4-8.2)
[2021-03-28] MEDS: levETIRAcetam 500 MG TABLET PO SCH ×2 (08:24→20:14)
[2021-03-28] MEDS: SERTRALINE 25 MG TABLET. PO SCH (08:24)
[2021-03-28] MEDS: LISINOPRIL 20 MG TABLET PO SCH (08:25)
[2021-03-28] MEDS: METOPROLOL SUCC 24HR ER 50 MG TAB.ER.24H. PO SCH (08:25)
[2021-03-28] MEDS: OXYBUTYNIN CHLORIDE 5 MG TABLET PO SCH (08:26)
[2021-03-28] MEDS: AZITHROMYCIN 250 MG TABLET. PO SCH (08:28)
[2021-03-28 10:48] VITALS: BP 133/66
[2021-03-28 15:09] VITALS: BP 148/76
--- NOTE | 2021-03-28 18:01 | NUR ---
NURSING NOTE PT IN BED, REPORTS NO PAIN OR DISCOMFORT, ASSISTED TO THE CHAIR,ALL MEDICATIONS ADMINISTERED. IV LINE CLEANED, PT ON PHONE WITH DAUGHTER.
[2021-03-28 19:11] VITALS: BP 143/68
[2021-03-28] MEDS: PHENYTOIN SODIUM EXTENDED 100 MG CAPSULE PO SCH (20:15)
[2021-03-28] MEDS: FOLIC ACID 1 MG TABLET PO SCH (20:15)
[2021-03-28] MEDS: LACTOBACILLUS RHAMNOSUS GG 1 CAPSULE. PO SCH (20:15)
--- NOTE | 2021-03-28 22:24 | PN ---
DATE: 03/28/2021 SUBJECTIVE: The patient is sitting in her chair, continued to be somewhat fidgety, somewhat tachypneic. PHYSICAL EXAMINATION: GENERAL: When I examined her, she was pale, not jaundice, cyanosed, no lymphadenopathy, no thyromegaly, no jugular venous distention. No lower limb edema. VITAL SIGNS: Her heart rate was 74, blood pressure is 133/66, temperature 97, respiratory rate was 20 and her oxygen saturation was 99% on room air. HEAD, EYES, EARS, NOSE, AND THROAT: Normocephalic, atraumatic. NECK: Supple. HEART: Normal distant first and second heart sounds, no gallop, rub or murmur. CHEST: Shows central trachea, increased anteroposterior diameter, reduced expansion, reduced air entry, vesicular breath sounds with diffuse scattered rhonchi. I could not appreciate any crepitation. ABDOMEN: Slightly distended, soft, nontender. NEUROLOGIC: She is somewhat fidgety, but all her cranial nerves intact. She moves extremities without difficulty. She ambulates with a walker. Her intake and output are incompletely recorded. LABORATORY DATA: This morning showed a white cell count of 6700, hemoglobin 11.5, hematocrit 34, MCV 101 and platelet count 178,000 with normal manual differential. Her chemistry showed sodium is up to 131, potassium 4.2, her chloride is 97, bicarbonate 32, anion gap of 2, BUN 11, creatinine 0.7. Estimated GFR was 79 mL per minute. Her glucose was 77, calcium was 8.5. Total bilirubin, AST, ALT were normal. Alkaline phosphatase is high at 165. Total protein was 5.9, albumin was 3.2. Her influenza A and B and coronavirus by PCR are all negative. ASSESSMENT: 1. Acute on chronic hypoxic respiratory failure. 2. Chronic obstructive pulmonary disease exacerbation. 3. Acute diastolic congestive heart failure. 4. Hypertension. 5. Seizure disorder. 6. Hyperlipidemia as well as dementia, and hyponatremia. PLAN: To continue with IV antibiotic. Continue with IV Solu-Medrol and bronchodilator. We will repeat all her lab works tomorrow and hopefully discharge her home. FRANCISCO DR: Mj TID: [id number]
[2021-03-28 23:27] VITALS: BP 131/65
[2021-03-29] MEDS: methylPREDNISolone SOD SUCC PF 40 MG/ML VIAL. IV SCH ×2 (02:46→10:05)
--- NOTE | 2021-03-29 04:30 | NUR ---
Pt took HS pills whole without difficulty. Pt settled to sleep around 2100 and only woke once to use bathroom overnight. Ambulated fairly well x1 assist with walker. Pt denies any pain or SOA, is hopeful to return home today.
[2021-03-29] MEDS: IPRATRPIUM/ALBUTEROL 0.5/2.5MG 3 ML NEBU. NEB SCH ×2 (04:45→11:36)
[2021-03-29 05:43] VITALS: BP 154/65
[2021-03-29 07:17] LABS: CALCIUM 8.9 mg/dL (8.5-10.1); CREATININE 0.7 mg/dL (0.6-1.0); GFR 79.7; POTASSIUM 4.5 mmol/L (3.5-5.1)
[2021-03-29] MEDS: LACTOBACILLUS RHAMNOSUS GG 1 CAPSULE. PO SCH (08:06)
[2021-03-29] MEDS: SERTRALINE 25 MG TABLET. PO SCH (08:07)
[2021-03-29] MEDS: METOPROLOL SUCC 24HR ER 50 MG TAB.ER.24H. PO SCH (08:07)
[2021-03-29] MEDS: OXYBUTYNIN CHLORIDE 5 MG TABLET PO SCH (08:07)
[2021-03-29] MEDS: LISINOPRIL 20 MG TABLET PO SCH (08:08)
[2021-03-29] MEDS: levETIRAcetam 500 MG TABLET PO SCH (08:08)
[2021-03-29] MEDS: AZITHROMYCIN 250 MG TABLET. PO SCH (08:08)
[2021-03-29 10:52] VITALS: BP 147/79
[2021-03-29] MEDS ORDERED: IPRA3AMP29 NEB (13:29)
[2021-03-29] MEDS ORDERED: PRED20TA PO (13:29)
[2021-03-29] MEDS ORDERED: AZIT250T PO (13:39)
[2021-03-29] MEDS ORDERED: CEFD300C PO (13:39)
--- NOTE | 2021-03-29 13:59 | NUR ---
NURSING NOTE DISCHARGE PT DISCHARGED HOME VIA WHEELCHAIR PICKED UP BY DOMINGO LU, DOMINGO HERNANDEZ AWARE. PT GIVEN WRITTEN AND VERBAL DISCHARGE INSTRUCTIONS. PT GIVEN SCRIPTS FOR PNEUMONIA TO BE FILLED. PT WAS ANXIOUS TO DISCHARGE FROM FACILITY. INFORMATION GIVEN TO DOMINGO LU. NO COMPLICATIONS. WILL ELISE.
== END 2021-03-29 14:00 | disposition home or self-care (01) | DRG 177 ==
LOC: ER 08:40 → 1 SOUTH 10:40
PROVIDERS: ADMIT Internal Medicine; ATTEND Internal Medicine
DX: J15.6 Pneumonia due to other Gram-negative bacteria (principal); I50.31 Acute diastolic (congestive) heart failure; J96.21 Acute and chronic respiratory failure with hypoxia; E87.1 Hypo-osmolality and hyponatremia; J44.0 Chronic obstructive pulmonary disease with (acute) lower respiratory infection; J44.1 Chronic obstructive pulmonary disease with (acute) exacerbation; J15.9 Unspecified bacterial pneumonia; E78.5 Hyperlipidemia, unspecified; F02.80 Dementia in other diseases classified elsewhere, unspecified severity, without behavioral disturbance, psychotic disturbance, mood disturbance, and anxiety; F32.9 Major depressive disorder, single episode, unspecified; G30.9 Alzheimer's disease, unspecified; G40.909 Epilepsy, unspecified, not intractable, without status epilepticus; I11.0 Hypertensive heart disease with heart failure; I48.91 Unspecified atrial fibrillation; Z86.73 Personal history of transient ischemic attack (TIA), and cerebral infarction without residual deficits; Z87.891 Personal history of nicotine dependence; Z98.41 Cataract extraction status, right eye; Z98.42 Cataract extraction status, left eye; Z87.440 Personal history of urinary (tract) infections; Z20.822 Contact with and (suspected) exposure to COVID-19
CPT/HCPCS: 36415; 71045; 80048; 80053; 82803; 83605; 83880; 84484; 85025; 87040; 87426; 87804; 93005; 94640; 96365; 96367; 96375; J0456; J0696; J1940; J2920; J2930; J7050; U0003; 99291-25

== ENCOUNTER → 2021-04-15 | Outpatient (CLI) | payer MEDICARE ==
[2021-03-29 10:52] VITALS: BP 147/79
[~2021-04-15] MED LIST changes: +AZIT250T PO; +IPRA3AMP29 NEB; +PRED20TA PO
--- NOTE | 2021-04-15 12:08 | RAD ---
EXAMINATION: XR FINGER(S)_RIGHT 2+VIEWS CLINICAL HISTORY: Right long finger pain TECHNIQUE: XR FINGER(S)_RIGHT 2+VIEWS Number of Images/Views: 3 COMPARISON: None FINDINGS: Oblique fracture through the tuft of the third distal phalanx with mild radial displacement of the di stal fragment. Asymmetrically shortened fifth metacarpal, possibly congenital or related to remote tr auma. Advanced degenerative changes fifth PIP joint with [id number] contact in suspected bony fusio n, incompletely evaluated. Moderate degenerative changes third-fifth DIP joints. Soft tissue swelling in the long finger. IMPRESSION: Mildly displaced tuft fracture in the long finger as described. Electronically signed by: Prabhakar Marin DO (04/15/2021 12:05 PM) [id number]
== END ==
LOC: RAD 10:55
PROVIDERS: ATTEND Specialist
DX: S61.202A Unspecified open wound of right middle finger without damage to nail, initial encounter (principal); S62.632A Displaced fracture of distal phalanx of right middle finger, initial encounter for closed fracture; X58.XXXA Exposure to other specified factors, initial encounter; Y93.9 Activity, unspecified; Y92.89 Other specified places as the place of occurrence of the external cause; Y99.8 Other external cause status
CPT/HCPCS: 73140

== ENCOUNTER 2021-04-18 12:29 | Observation (INO) | payer MEDICARE ==
[~2021-04-18] VITALS: Ht 152.4 cm; Wt 45.1 kg
--- NOTE | 2021-04-18 12:54 | EKG ---
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
--- NOTE | 2021-04-18 13:03 | PHYS DOC ---
Past History Past Medical History: CHF, CVA, Dementia, Heart Disease, Seizure, UTI Additional Past Medical Histor: dementia Past Surgical History: No Surgical History Smoking: Quit Greater Than 1 Year Alcohol Use: None Drug Use: None General Adult EDM: Chief Complaint: SEIZURE HPI: HPI: 85-year-old female presents via EMS with reported seizure. The patient does not remember what happened. She states feeling fine prior to this episode and she has no real complaints. The family reports that the patient had a seizure today. She has a history of seizures. Her daughter is most concerned that she has had 3 falls in the last 1 week. One fall resulted in a broken finger. The patient is also reported to have hallucinations at night and has been screaming about someone in her room. The patient's daughter is in nervous about the patient getting hurt at home. She lives with the daughter. Review of Systems: Review of Systems: Constitutional: Denies fever or chills Eyes: Denies change in visual acuity HENT: Denies nasal congestion or sore throat Respiratory: Denies cough or shortness of breath Cardiovascular: Denies chest pain or edema GI: Denies abdominal pain, nausea, vomiting, bloody stools or diarrhea : Denies dysuria Musculoskeletal: Denies back pain or joint pain Integument: Denies rash Neurologic: Seizure. Denies headache, focal weakness or sensory changes Endocrine: Denies polyuria or polydipsia Lymphatic: Denies swollen glands Psychiatric: Denies depression or anxiety Allergies: Allergies: Allergies Coded Allergies Type Severity Reaction Last Updated Verified No Known Drug Allergies 10/25/20 No Physical Exam: PE: Constitutional: Well developed, well nourished, thin, no acute distress, non- toxic appearance. [] HENT: Normocephalic, atraumatic, bilateral external ears normal, oropharynx moist, no oral exudates, nose normal. [] Eyes: PERRLA, EOMI, conjunctiva normal, no discharge. [] Neck: Normal range of motion, no tenderness, supple, no stridor. [] Cardiovascular: Heart rate 77, irregular rhythm, no murmur [] Lungs & Thorax: Bilateral breath sounds clear to auscultation [] Abdomen: Bowel sounds normal, soft, no tenderness, no masses, no pulsatile masses. [] Skin: Warm, dry, no erythema, no rash. [] Back: No tenderness, no CVA tenderness. [] Extremities: No tenderness, no cyanosis, no clubbing, ROM intact, no edema. [] Neurologic: Alert and oriented X 3, nearly constant choreic like movements, normal sensory function, no focal deficits noted. [] Psychologic: Affect normal, judgement normal, mood normal. [] Current Patient Data: Vital Signs: Vital Signs Date Time Temp Pulse Resp B/P (MAP) Pulse Ox O2 Delivery O2 Flow Rate FiO2 04/18/21 12:36 97.7 20 157/96 (116) 99 EKG: EKG: Irregular rhythm, rate 77, normal axis, no ST elevation or depression. [] Radiology/Procedures: Radiology/Procedures: [] Impressions: Site ID: [id number] EXAMINATION: XR CHEST 1V. HISTORY: 85 years Female Reason: seizure / . . COMPARISON: March 27, 2021. Findings: The lungs are hyperinflated. The heart size is enlarged. There is interstitial thickening suggestive of vascular congestion. Tiny left effusion is seen. No pneumothorax. The mediastinum and walter appear unremarkable. Impression: Cardiomegaly with mild vascular congestion. Tiny left effusion. Electronically signed by: Melecio Hernandez MD (04/18/2021 1:33 PM) [id number] DICTATED AND SIGNED BY: MELECIO HERNANDEZ MD DATE: 04/18/21 1332 CC: MEDINA JAQUEZ DO; EVETTE BARRIOS MD ~MTH0 0 Heart Score: C/O Chest Pain: No Risk Factors: Risk Factors: DM, Current or recent (<one month) smoker, HTN, HLP, family history of CAD, obesity. Risk Scores: Score 0 - 3: 2.5% MACE over next 6 weeks - Discharge Home Score 4 - 6: 20.3% MACE over next 6 weeks - Admit for Clinical Observation Score 7 - 10: 72.7% MACE over next 6 weeks - Early Invasive Strategies Course & Med Decision Making: Course & Med Decision Making Pertinent Labs and Imaging studies reviewed. (See chart for details) After the patient fully settled down, she does not have constant movements. No history of Parkinson's. Family reports that she has been having falls at home. 1 recently which broke her finger. The patient's labs are unremarkable except for an elevated pro BNP of 2000. When the patient needed to go to the restroom, took 2 nurses to guide her due to her being unsteady and having lack of strength. She is also vomited in the ER. I have given her Zofran and will CT her head. I will admit the patient to the hospital. I spoke with Dr. Layton and he has accepted the patient for admission. [] Dragon Disclaimer: Dragjavier Disclaimer: This electronic medical record was generated, in whole or in part, using a voice recognition dictation system. Departure Departure: Impression: Primary Impression: Seizure disorder Additional Impressions: Weakness CHF (congestive heart failure) Qualified Codes: I50.23 - Acute on chronic systolic (congestive) heart failure Disposition: ADMITTED INPATIENT Admitting Physician: Dimas Layton Condition: STABLE Referrals: EVETTE BARRIOS MD (PCP) MEDINA JAQUEZ DO Apr 18, 2021 13:03
--- NOTE | 2021-04-18 13:35 | RAD ---
Site ID: [id number] EXAMINATION: XR CHEST 1V. HISTORY: 85 years Female Reason: seizure / . . COMPARISON: March 27, 2021. Findings: The lungs are hyperinflated. The heart size is enlarged. There is interstitial thickening s uggestive of vascular congestion. Tiny left effusion is seen. No pneumothorax. The mediastinum and walter appear unremarkable. Impression: Cardiomegaly with mild vascular congestion. Tiny left effusion. Electronically signed by: Tl Hernandez MD (04/18/2021 1:33 PM) [id number]
[2021-04-18 13:36] LABS: BASO % 1 % (0-3); EOS # 0.2 x10^3/uL (0.0-0.7); EOS % 4 % (0-3); HEMATOCRIT 34.1 % (36.0-47.0); HEMOGLOBIN 11.4 g/dL (12.0-15.5); LYMPH # 1.4 x10^3/uL (1.0-4.8); LYMPH % 30 % (24-48); MEAN CORPUSCULAR HEMOGLOBIN 33 pg (25-35); MEAN CORPUSCULAR HGB CONC 33 g/dL (31-37); MEAN CORPUSCULAR VOLUME 99 fL (79-100); MONO # 0.6 x10^3/uL (0.0-1.1); MONO % 13 % (0-9); NEUT # 2.4 x10^3uL (1.8-7.7); NEUT % 53 % (31-73); PLATELET COUNT 186 x10^3/uL (140-400); RED BLOOD COUNT 3.45 x10^6/uL (3.50-5.40); WHITE BLOOD COUNT 4.6 x10^3/uL (4.0-11.0)
[2021-04-18 13:39] LABS: CALCIUM 8.9 mg/dL (8.5-10.1); CREATININE 0.6 mg/dL (0.6-1.0); GFR 95.2; POTASSIUM 3.8 mmol/L (3.5-5.1)
[2021-04-18 13:45] LABS: ALBUMIN 3.8 g/dL (3.4-5.0); ALBUMIN/GLOBULIN RATIO 1.4 (1.0-1.7); TOTAL BILIRUBIN 0.4 mg/dL (0.2-1.0); TOTAL PROTEIN 6.5 g/dL (6.4-8.2)
[2021-04-18 14:22] LABS: BILIRUBIN,URINE NEG (NEG); CLARITY,URINE CLEAR; COLOR,URINE YELLOW; GLUCOSE,URINE NEG (NEG)
[2021-04-18 14:23] LABS: BACTERIA,URINE 0 /HPF (0-FEW); NITRITE,URINE NEG (NEG); SQUAMOUS EPITHELIAL CELL,UR MANY /LPF; UROBILINOGEN,URINE 0.2 mg/dL (0.2 mg/dL); WBC,URINE OCC /HPF (0-4)
[2021-04-18] MEDS ORDERED: ONDANSETRON PF 4 MG/2 ML VIAL. IVP ONE (15:30)
--- NOTE | 2021-04-18 15:46 | RAD ---
STUDY: CT head without contrast INDICATION: Fall. Vomiting. COMPARISON: 01/30/2021 TECHNIQUE: Axial CT imaging through the head without the use of intravenous contrast. Sagittal and co kathi reformats were obtained. One or more of the following individualized dose reduction techniques were utilized for this examinat ion: 1. Automated exposure control 2. Adjustment of the mA and/or kV according to patient size 3. Use of iterative reconstruction technique. FINDINGS: No acute intracranial hemorrhage. Intrinsic hyperattenuation projecting at the right frontal kurtz-whi te matter interface is unchanged from the comparison typical of mineralization. No localized mass eff ect or midline shift. No CT manifestations of an acute cortical infarction. Redemonstrated white matter findings most typical of chronic microvascular ischemic change. Parenchym al volume loss and ex vacuo ventricular prominence. Intracranial calcific atherosclerosis. No depressed calvarial fracture. IMPRESSION: 1. No acute intracranial abnormality by CT. 2. Chronic/senescent observations described in the body of the report and without significant change from 01/30/2021. Electronically signed by: MEEK AGUILERA MD (04/18/2021 3:43 PM) [facility]
[2021-04-18] MEDS ORDERED: ONDANSETRON PF 4 MG/2 ML VIAL. IVP PRN (17:15)
[2021-04-18 18:19] VITALS: BP 138/65
--- NOTE | 2021-04-18 18:29 | NUR ---
NURSING NOTES PT CAME INTO THE UNIT ON A GURNEY, AND WAS PLACED IN ROOM 107 ON ISOLATION PERCUSSION. ADMISSION ORDER IN PLACE.
--- NOTE | 2021-04-18 18:31 | NUR ---
NURSING NOTE PT ADMITTED FOR WEAKNESS AND SEIZURES, IN ROOM NO REPORT OF PAIN OR DISCOMFORT. CAME IN FROM THE ED
[2021-04-18] MEDS ORDERED: PHENYTOIN SODIUM EXTENDED 100 MG CAPSULE PO SCH (21:00)
[2021-04-18 23:18] VITALS: BP 142/71
[2021-04-19 06:23] VITALS: BP 135/70
--- NOTE | 2021-04-19 08:15 | HP ---
ATTENDING PHYSICIAN: Dr. Layton. SUBJECTIVE: Seizures. HISTORY OF PRESENT ILLNESS: The patient is an 85-year-old female well known to us. She recently moved here several months ago to be with her family. She has a workup for idiopathic seizure disorder. She had an episode of witnessed seizures. She is on Dilantin and Keppra and had a breakthrough seizure. She is profoundly demented. She is admitted for further treatment and evaluation. Her CT scan was unremarkable. PAST MEDICAL HISTORY: Gleaned from the old chart. She has a longstanding history of COPD, congestive heart failure, compensated; generalized weakness, frequent falls, anxiety disorder and vascular dementia with delusions. CURRENT MEDICATIONS: As follows: She was taking Keppra 500 mg b.i.d., Dilantin 300 mg daily, Zoloft, trazodone, folic acid, oxybutynin, metoprolol and albuterol. ALLERGIES: She has no known drug allergies. SOCIAL HISTORY: She was a smoker up to a year ago. Drinking history, none. FAMILY HISTORY: Unobtainable. REVIEW OF SYSTEMS: Significant for generalized weakness, dementia. She is cared for by the family. She could not provide any history. PHYSICAL EXAMINATION: GENERAL: When I saw her, this is a pleasant, confused elderly female. VITAL SIGNS: Initial vital signs showed a blood pressure of 140/71, pulse is 71 and regular, temperature 97.9, oxygen saturation 98% on 2 liters nasal cannula. HEENT: Head is without trauma. Pupils are reactive. Sclerae nonicteric. The oropharynx is clear. NECK: Supple. LUNGS: Shallow respirations. CARDIOVASCULAR: Showed regular heart tones. No gallops. ABDOMEN: Soft. EXTREMITIES: Without edema. NEUROLOGIC FINDINGS: Profound confusion. PERTINENT LABORATORY STUDIES: Hemoglobin 11.4 g, white count 4600. Her sodium is 138. Electrolytes within normal range. Cardiac enzymes negative for coronary ischemia. BNP was 2000. CT of the head showed no new changes. ASSESSMENT: 1. An 85-year-old female with breakthrough seizures. I suspect she is compliant with her meds. 2. Underlying dementia, profound. 3. Chronic obstructive pulmonary disease. 4. Generalized debilitation. PLAN: 1. Keppra dose is increased to 1000 b.i.d. 2. Continue Dilantin. 3. Continue home meds. 4. I will discuss with daughter tentative treatment plans regarding plan of care. THEODORA DR: Corona TID: [id number] CC: EVETTE BARRIOS MD
[2021-04-19] MEDS ORDERED: OXYBUTYNIN CHLORIDE 5 MG TABLET PO SCH (09:00)
[2021-04-19] MEDS ORDERED: SERTRALINE 25 MG TABLET. PO SCH (09:00)
[2021-04-19] MEDS ORDERED: LISINOPRIL 20 MG TABLET PO SCH (09:00)
[2021-04-19] MEDS ORDERED: METOPROLOL SUCC 24HR ER 50 MG TAB.ER.24H. PO SCH (09:00)
--- NOTE | 2021-04-19 11:06 | NUR ---
PT DAUGHTER PRESENT THIS MORNING DURING MED-PASS. DAUGHTER IS AN EMPLOYEE OF [employer] AND WAS IN THE ROOM UPON THIS RN'S ARRIVAL. PT RECEIVED IV KEPPRA THIS MORNING. CM CURRENTLY LOOKING FOR PLACEMENT AT A DETENTION FOR PT. PHYSICAL THERAPY/OT SAW PT TODAY. PT WALKED AROUND IN THE [facility] AND GOT UP TO THE CHAIR.
[2021-04-19 11:24] VITALS: BP 110/62
[2021-04-19 15:03] VITALS: BP 165/73
--- NOTE | 2021-04-19 17:06 | NUR ---
Patient was discharged to [facility]. Patient left the unit via wheelchair. Patients discharge information packet was sent with the facilities personnel/class c driver. Report was call to Ethan SOLIS at the [facility].
--- NOTE | 2021-04-19 17:08 | DS ---
DATE OF DISCHARGE: 04/19/2021 ATTENDING PHYSICIAN: Dr. Layton. FINAL DISCHARGE DIAGNOSES: 1. Idiopathic seizure disorder with breakthrough seizures. 2. Questionable compliance. 3. Underlying dementia that is profound. 4. Chronic obstructive pulmonary disease. 5. Generalized debilitation. HISTORY OF PRESENT ILLNESS: The patient is an 85-year-old female well known to us from previous admission. She has profound dementia and an idiopathic seizure disorder. She lives with her daughter who may be questionable in terms of compliance and ability to take care of her. She had a witnessed seizure. She was evaluated in the ED. PHYSICAL EXAMINATION: Please see the dictated note. PERTINENT LABORATORY AND X-RAY STUDIES: Admission hemoglobin was 11.4 g/dL with a white count of 4600. Electrolytes within normal range. Potassium is 3.8 mEq, sodium 133 mEq per liter. Creatinine was normal. Nonfasting blood sugar was 99 mg/dL. Cardiac enzymes were negative. BNP was 2000. IMAGING STUDIES: The obligatory CT of the head showed no acute strokes, chronic senescent observation described in the body of the report consistent with age. There is no midline defect, no acute strokes identified. Chest x-ray was nondiagnostic. COURSE IN THE HOSPITAL: The patient was admitted. She was given increased dosage of Keppra. I wonder whether she had a therapeutic dose or whether needs a higher dose. Dilantin was continued. She did well. She was awake. By the next day, she was talking back to her baseline. She remains pleasantly confused. She was able to feed herself and be independent of her going to the bathroom and so on. The daughter initially wanted her at a higher level of care. We had our social service call the daughter and commercial collections specialist. We are getting Medicaid pending. In the meantime, she does not need to be in the hospital. I wrote her scripts for increased Keppra 1000 mg p.o. b.i.d. Other home meds are unchanged. She will continue her Dilantin 300 mg daily as well as her ipratropium bromide 3 times a day, lisinopril 20 mg daily, metoprolol 50 mg daily, oxybutynin 5 mg daily, Zoloft 25 mg daily and trazodone 50 mg at bedtime. She remains a DNR per advanced directive. The patient was then discharged from our hospital in stable condition with explicit instructions in followup care. Our case filler will be working with her family to try to get her placed along with payment through Medicaid pending. GALILEA/CLAUDIA/YULIET DR: Corona TID: [id number] CC: EVETTE BARRIOS MD
== END 2021-04-19 16:05 ==
LOC: ER 12:29 → INTOOBSV 17:12 → 1 SOUTH 17:12
PROVIDERS: ADMIT Hospitalist; ATTEND Hospitalist
DX: G40.309 Generalized idiopathic epilepsy and epileptic syndromes, not intractable, without status epilepticus (principal); Z20.822 Contact with and (suspected) exposure to COVID-19; J44.9 Chronic obstructive pulmonary disease, unspecified; I11.0 Hypertensive heart disease with heart failure; I50.23 Acute on chronic systolic (congestive) heart failure; F03.90 Unspecified dementia, unspecified severity, without behavioral disturbance, psychotic disturbance, mood disturbance, and anxiety; R53.81 Other malaise; F41.9 Anxiety disorder, unspecified; R53.1 Weakness; Z66 Do not resuscitate; Z79.899 Other long term (current) drug therapy; Z86.73 Personal history of transient ischemic attack (TIA), and cerebral infarction without residual deficits; Z91.14 Patient's other noncompliance with medication regimen; Z87.891 Personal history of nicotine dependence; X58.XXXA Exposure to other specified factors, initial encounter; Y92.009 Unspecified place in unspecified non-institutional (private) residence as the place of occurrence of the external cause
CPT/HCPCS: 36415; 70450; 71045; 80053; 81001; 83605; 83880; 84484; 85025; 87086; 87426; 93005; 96365; 96366; 96375; 97116; 97161; 97166; 97530; 99285; G0378; J1953; J2405; U0003; 96374; G0379